=== PATIENT | female | born 1975 | race Caucasian/White ===

== ENCOUNTER 2019-08-26 13:19 | Outpatient (CLI) | payer MEDICARE, MEDICAID, SELFPAY ==
--- NOTE | 2019-08-26 | ECHO_ITS ---
Patient Info Name: Sabi Tafoya Age: 44 years : 1975 Gender: Female Ht: 67 in Wt: 142 lbs BSA: 1.75 m2 HR: 73 bpm BP: 110 / 73 mmHg Heart Rhythm: Sinus Rhythm Technical Quality: Good Exam Date: 08/26/2019 1:45 PM Exam Location: [facility] Patient Status: Outpatient Admit Date: 08/26/2019 Staff Ordering Physician: Gaurang, Sudhakar VILLAGRAN Patient Manager: Ady Barnett, AVILA, RT Attending Provider: Gaurang, Sudhakar VILLAGRAN Exam Type: CA echo doppler color flow Study Info Indications R60.0 - Localized edema Complete two-dimensional, color flow and Doppler transthoracic echocardiogram is performed. Summary 1. Left ventricular chamber size, wall thickness, systolic and diastolic function are normal with no regional wall motion abnormalities with an estimated ejection fraction of 65-70%. The average global longitudinal strain is minimally decreased at -17%, suggesting possible early systolic dysfunction. 2. No significant valve disease. 3. Normal sinus rhythm. Left Ventricle Left ventricular chamber dimension is normal. Left ventricular systolic function is normal, estimated at 65-70%. There is no increased left ventricular wall thickness. Left ventricular septal wall motion is normal. The left ventricular diastolic function is normal. Global longitudinal strain is mildly elevated at 17 %. Left ventricular chamber size, wall thickness, systolic and diastolic function are normal with no regional wall motion abnormalities with an estimated ejection fraction of 65-70%. The average global longitudinal strain is minimally decreased at -17%, suggesting possible early systolic dysfunction. Right Ventricle Right ventricular chamber dimension is normal. Right ventricular systolic function is normal. Left Atria Left atrial chamber dimension is normal. Right Atria Right atrial chamber dimension is normal. Aortic Valve The aortic valve is trileaflet. There is no aortic valve sclerosis. There is no aortic valve stenosis. There is no aortic valve regurgitation. Pulmonic Valve The pulmonic valve is normal. There is no pulmonic valve stenosis. There is no pulmonic regurgitation. Mitral Valve The mitral valve has normal leaflets. There is no mitral valve stenosis. There is trace mitral valve regurgitation. Tricuspid Valve The tricuspid valve leaflets are normal. There is no significant tricuspid valve stenosis. There is trace tricuspid valve regurgitation. No pulmonary hypertension, estimated pulmonary arterial systolic pressure is Empty. Pericardium/Pleural The pericardium appears normal. There is no pericardial effusion. Inferior Vena Cava Normal inferior vena cava with >50% collapse upon inspiration consistent with Empty right atrial pressure, Empty. Aorta The aortic root size at the sinus of Valsalva is normal. The prox ascending aorta size is normal. Left Ventricular Outflow Tract Name Value Normal LVOT 2D LVOT Diameter 1.9 cm LVOT Doppler LVOT Peak Gradient 4 mmHg LVOT Mean Gradient 2 mmHg LVOT VTI
== END 2019-08-26 13:20 | disposition home or self-care (01) ==
PROVIDERS: PCP Family Medicine; Visit Provider Family Medicine
DX: R60.9 Edema, unspecified (principal)
CPT/HCPCS: 93306

== ENCOUNTER 2019-12-27 10:04 | Outpatient (CLI) | payer MEDICARE, MEDICAID, SELFPAY ==
--- NOTE | ~2019-12-27 | XR_ITS ---
EXAMINATION: XR ankle RT min 3V DATE: 12/27/2019 16:21 INDICATION: Right ankle soft tissue swelling. TECHNIQUE: 4 views of right ankle were obtained. COMPARISON: Right ankle radiographs 06/06/2018 FINDINGS: Bone alignment is normal. No fracture. There is chronic sclerosis in the distal tibia and c alcaneus, consistent with osteonecrosis. There is moderate osteoarthritis of the ankle joint. There i s an enthesophyte at plantar aspect of calcaneal tuberosity. Ankle soft tissue swelling is noted. IMPRESSION: 1. Osteonecrosis involving the distal tibia and calcaneus, stable from 06/06/2018. 2. Moderate ankle joint osteoarthritis. Reviewed, dictated and finalized at location A. IMPRESSION: 1. 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 2. Moderate ankle joint osteoarthritis.
--- NOTE | ~2019-12-27 | NM_ITS ---
EXAMINATION: NM bone 3 phase DATE: 12/27/2019 15:14 INDICATION: Right ankle ulcer. TECHNIQUE: 22.7 mCi Tc-99m HDP was administered intravenously. Scintigrams of the ankles and feet wer e obtained in angiographic, blood pool, and delayed phases. COMPARISON: Right ankle radiographs 12/27/2019, left ankle radiographs 06/06/2018 FINDINGS: There is increased activity in right tibiotalar joint on delayed phase images correlating w ith osteoarthritis and distal tibial osteonecrosis on radiographs. There is increased activity at rig ht first metatarsal-phalangeal joint correlating with osteoarthritis on radiographs. There is increased activity at left tibiotalar joint and in distal left tibia on all 3 phases correla ting with advanced osteoarthritis and distal tibial osteonecrosis on prior radiographs. IMPRESSION: 1. No evidence of osteomyelitis in the right ankle. Reviewed, dictated and finalized at location A.
== END 2019-12-27 10:05 | disposition home or self-care (01) ==
LOC: ANHIMG 10:19
PROVIDERS: PCP Family Medicine; Visit Provider Family Medicine
DX: S91.001A Unspecified open wound, right ankle, initial encounter (principal); X58.XXXA Exposure to other specified factors, initial encounter; M19.071 Primary osteoarthritis, right ankle and foot
CPT/HCPCS: 73610; 78315; A9561

== ENCOUNTER 2020-01-20 21:17 | Inpatient (IN) | payer MEDICARE, MEDICAID, SELFPAY ==
--- NOTE | ~2020-01-20 | XR_ITS ---
EXAMINATION: XR abdomen NG/feed tube insert INDICATION: Nasogastric tube insertion TECHNIQUE: Portable AP KUB-NG at 0107 hours COMPARISON: None available FINDINGS: The nasogastric tube is in the stomach. Contrast from earlier CT examination partially opac ifies the urinary tract. The visualized lung bases are clear. IMPRESSION: 1. Nasogastric tube in the stomach. Reviewed, dictated and finalized at location A.
--- NOTE | ~2020-01-20 | CT_ITS ---
EXAMINATION: CT cervical spine wo con DATE: 01/21/2020 00:22 INDICATION: Confusion and altered mental status TECHNIQUE: Computed tomography (CT) of the cervical spine was performed without intravenous contrast. The dose-length product (DLP) was 376.70 mGy-cm. Automated exposure control and iterative reconstruc tion technique were employed. COMPARISON: None FINDINGS: The C3 and C4 vertebral bodies are fused. There is anterior surgical fusion from C5 through C7 and posterior fusion from C2 through the upper thoracic spine. There is chronic appearing retropu lsion of a fracture fragment into the central spinal canal at C7. No definite acute fracture is ident ified. The prevertebral soft tissues are normal. The odontoid is intact. IMPRESSION: 1. Surgical changes without evidence of acute osseous abnormality. Reviewed, dictated and finalized at location A.
--- NOTE | ~2020-01-20 | XR_ITS ---
XR chest 1V portable DATE: 01/24/2020 06:29 INDICATION: Acute respiratory failure TECHNIQUE: Portable AP chest on 01/24/2020 at 0550 hours COMPARISON: 01/23/2020 portable AP chest at 0529 hours FINDINGS: Right internal jugular central venous catheter tip overlying superior vena cava. NG tube in stomach. ET tube tip approximately 2.3 cm above venu in satisfactory position. Heart size likely within normal range. There is pulmonary vascular congestion and redistribution. The re is increased retrocardiac density on the left with air bronchograms consistent with left lower lob e atelectasis and/or consolidation. Mild blunting of the cosmetic angles may indicate small pleural e ffusions. There is prominence of minor fissure suggesting subpleural edema. Postoperative changes from cervical and upper thoracic spine fusion. IMPRESSION: ET and NG tubes in satisfactory position Right internal jugular central venous catheter in superior vena cava; no pneumothorax Left lower lobe atelectasis and/or consolidation, relatively stable since 01/23/2020 Congestive changes, relatively stable since 01/23/2020 Reviewed, dictated and finalized at location A. IMPRESSION: ET and NG tubes in satisfactory position Right internal jugular central venous catheter in superior vena cava; no pneumo thorax Left lower lobe atelectasis and/or consolidation, relatively stable since 020 Congestive changes, relatively stable since 01/23/2020
--- NOTE | ~2020-01-20 | XR_ITS ---
EXAMINATION: XR chest 1V portable INDICATION: Acute respiratory failure TECHNIQUE: Portable AP chest at 0543 hours COMPARISON: 01/21/2020 FINDINGS: The endotracheal tube at the origin of the right main stem bronchus. The nasogastric tube i s in the stomach. A right internal jugular central venous catheter ends with its tip in the distal gómez perior vena cava. Airspace opacities have developed in the left lung base. There is a small left pleu ral effusion. No pneumothorax is identified. The cardiomediastinal silhouette is stable. There are pa rtially imaged changes of cervical and thoracic spinal fusion. IMPRESSION: 1. Small left pleural effusion with associated left basilar airspace opacity, atelectasis versus pneu monia. 2. Endotracheal tube at the origin of the right mainstem bronchus. Recommend repositioning. This find ing and recommendation were discussed with INES Arevalo at 0701 hours on 01/22/2020. Reviewed, dictated and finalized at location A. IMPRESSION: 1. Small left pleural effusion with associated left basilar airspace opacity, a telectasis versus pneumonia. 2. Endotracheal tube at the origin of the right mainstem bronchus. Recommend re positioning. This finding and recommendation were discussed with INES Arevalo at 0 701 hours on 01/22/2020.
--- NOTE | ~2020-01-20 | XR_ITS ---
EXAMINATION: XR chest ET placement INDICATION: Shortness of breath, intubation TECHNIQUE: Portable AP chest at 0317 hours COMPARISON: 06/04/2019 FINDINGS: The endotracheal tube ends approximately 1.7 cm above the venu. The nasogastric tube is i n the stomach. The lungs are free of acute opacities. There is no pleural effusion or pneumothorax. T he cardiomediastinal silhouette is normal. Changes of cervical and thoracic spinal fusion are noted. IMPRESSION: 1. Endotracheal and nasogastric tubes in adequate position. Reviewed, dictated and finalized at location A.
--- NOTE | ~2020-01-20 | XR_ITS ---
EXAMINATION: XR abdomen NG/feed tube insert INDICATION: Nasogastric tube insertion TECHNIQUE: Portable AP KUB-NG at 1046 hours COMPARISON: 0107 hours FINDINGS: The nasogastric tube is in the stomach. The bowel gas pattern is nonspecific. The endotrach eal tube ends approximately 1 cm above the venu. IMPRESSION: 1. Nasogastric tube in the stomach. Reviewed, dictated and finalized at location A.
--- NOTE | ~2020-01-20 | XR_ITS ---
EXAMINATION: XR chest port-a-cath/central INDICATION: Central line placement TECHNIQUE: Portable AP chest at 0614 hours COMPARISON: 0317 hours FINDINGS: A right internal jugular catheter has been inserted which ends with its tip in the superior vena cava. There is no pneumothorax. The lungs are free of acute opacities. There is no pleural effu victor manuel. The endotracheal tube ends approximately 1.7 cm above the venu. The nasogastric tube is in th e stomach. There are partially imaged changes of cervical and thoracic spinal fusion. IMPRESSION: 1. Central line insertion without pneumothorax. 2. No acute cardiopulmonary abnormality. Reviewed, dictated and finalized at location A.
--- NOTE | ~2020-01-20 | CT_ITS ---
EXAMINATION: CT abdomen pelvis w con DATE: 01/21/2020 00:22 INDICATION: Hepatic encephalopathy TECHNIQUE: Computed tomography (CT) of the abdomen and pelvis was performed with 100 mL Omnipaque-350 intravenous contrast. Automated exposure control and iterative reconstruction technique were employe d. The dose-length product was 1162.13 mGy-cm. COMPARISON: None FINDINGS: Dependent atelectasis in the bilateral lower lobes. Heart size is normal. No pericardial or pleural e ffusion. Nodular cirrhotic liver. Portal venous hypertension with recanalized umbilical vein draining to the right hypogastric vein as well as paraesophageal varices. The gallbladder is distended to 4.3 cm. There is mild gallbladder wall thickening with subtle haziness to the immediately adjacent peric holecystic fat. Spleen, pancreas, bilateral adrenal glands are normal. Mild left renal atrophy with s mall region of focal cortical scarring at the lower pole. There are few scattered colonic diverticula without adjacent inflammatory change to suggest diverticulitis. No bowel obstruction. Bladder, uteru s and bilateral adnexa are unremarkable. Moderate-sized fat-containing paraumbilical hernia. No free intraperitoneal gas or fluid. No pathologically enlarged abdominal or pelvic lymphadenopathy. Mild l umbar levoscoliosis with severe right-sided disc height loss and associated Modic type III degenerati ve endplate changes at the L4-L5. Moderate disc height loss with less severe degenerative endplate ch anges at T11-T12. 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 IMPRESSION: 1. Cirrhosis with portal venous hypertension including esophageal varices. 2. Mild wall thickening of the mildly distended gallbladder with slight haziness to the pericholecyst ic fat. This could be related to cirrhosis however differential would also include acute cholecystiti s in the proper peduncle setting. Correlate for Barnett sign and could consider further evaluation wit h ultrasound or HIDA scan as clinically indicated. 3. Moderate-sized fat-containing umbilical hernia. 4. 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 Reviewed, dictated and finalized at location A. IMPRESSION: 1. Cirrhosis with portal venous hypertension including esophageal varices. 2. Mild wall thickening of the mildly distended gallbladder with slight hazines s to the pericholecystic fat. This could be related to cirrhosis however differ ential would also include acute cholecystitis in the proper peduncle setting. C orrelate for Barnett sign and could consider further evaluation with ultrasound or HIDA scan as clinically indicated. 3. Moderate-sized fat-containing umbilical hernia. 4. 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
--- NOTE | ~2020-01-20 | CT_ITS ---
EXAMINATION: CT brain wo con INDICATION: Confusion COMPARISON: None TECHNIQUE: Standard unenhanced head CT. The dose-length product (DLP) was 681.00 mGy-cm. The mA was a djusted according to patient size. Iterative reconstruction technique was employed. FINDINGS: Examination is limited by motion artifact. There is no intracranial hemorrhage, acute infar ction, or abnormal mass lesion. The ventricles are normal. There is no abnormal mass effect or midlin e shift. The colvin-white matter differentiation is normal. The basal cisterns are patent. The orbits a re normal. There is mild mucosal thickening of the paranasal sinuses. IMPRESSION: 1. Grossly no acute intracranial abnormality, sensitivity limited by motion artifact. Reviewed, dictated and finalized at location A. IMPRESSION: 1. Grossly no acute intracranial abnormality, sensitivity limited by motion art ifact.
--- NOTE | ~2020-01-20 | XR_ITS ---
EXAMINATION: XR chest 1V portable INDICATION: Acute respiratory failure TECHNIQUE: Portable AP chest at 0529 hours COMPARISON: 01/22/2020 FINDINGS: The endotracheal tube ends approximately 1.9 cm above the venu. The nasogastric tube is f ollowed as far as the stomach. Its tip is beyond the inferior margin of the radiograph. A right inter nal jugular central venous catheter ends with its tip in the midsuperior vena cava. LEFT basilar airs pace opacity persists without significant change. There is a small left pleural effusion. No pneumoth orax is identified. Partially imaged changes of cervical and thoracic spinal fusion are again noted. The cardiomediastinal silhouette is stable. IMPRESSION: 1. Stable left basilar airspace opacity, consistent with atelectasis versus pneumonia. 2. Small left pleural effusion. Reviewed, dictated and finalized at location A. IMPRESSION: 1. Stable left basilar airspace opacity, consistent with atelectasis versus pne umonia. 2. Small left pleural effusion.
--- NOTE | 2020-01-20 21:18 | ED.AMS ---
HPI - Altered Mental Status General Chief Complaint: Nausea/Vomiting/Diarrhea Stated Complaint: pain all over/ vomiting blood History of Present Illness HPI narrative: Patient presents via EMS for altered mental status. Her called 911. All she will say is leonard, Rolan francis she has not a surgical collar and swings out of anyone who tries to approach her. The EMS staff says that her reports that she has been vomiting blood and having diarrhea with blood. MD complaint: altered mental status and confusion Onset (ago): hour(s) Timing confirmed by: family member Related Data Home Medications Medication Instructions Recorded Confirmed allopurinol 300 mg PO DAILY 01/20/20 atorvastatin 20 mg PO DAILY 01/20/20 furosemide [Lasix] 40 mg PO DAILY 01/20/20 gabapentin 600 mg PO QID 01/20/20 meloxicam 7.5 mg PO BID 01/20/20 omeprazole 40 mg PO DAILY 01/20/20 potassium chloride 20 mg PO BID 01/20/20 spironolactone 100 mg PO DAILY 01/20/20 Allergies Allergy/AdvReac Type Severity Reaction Status Date / Time No Known Allergies Allergy Unverified 05/17/17 00:20 Review of Systems Review of Systems: Narrative: Unable to obtain an accurate review of systems due to the patient's altered mental status. [facility] Family History Family History (Updated 04/30/12 @ 07:52 by DOCTOR UNKNOWN) Other Diabetes mellitus Social History Social History Alcohol intake: current Exam Narrative: Exam Narrative: GENERAL: Disheveled, jaundice, woman in moderate distress. HEAD: Normocephalic, atraumatic. EYES: PERRLA and EOMI. ENT: Nares clear, no rhinorrhea or epistaxis. Mucous membranes moist. NECK: Supple. CHEST: Clear to auscultation. No respiratory distress. HEART: Regular rate and rhythm. No murmur heard. Normal peripheral pulses. ABDOMEN: Soft, nontender, nondistended, normal active bowel sounds. Umbilical hernia. EXTREMITIES: Normal range of motion. No edema. SKIN: Warm, dry, no rash. NEURO: No focal deficits. . PSYCH: Yelling and unable to be redirected, will not follow commands.. Course Reevaluation(s) Reevaluation #1: The is here now who says his has not had any alcohol to drink today. Usually she drinks beer daily. He said that she was fine until he went out to get a pizza, when he returned, she was confused, and would not eat. Her says that the orange discoloration of her skin might be the tanning product she uses. Date: 01/20/20 Time: 21:52 Reevaluation #2: [id number] with the patient after her NG was placed. The CAT scan of her neck shows nothing acute and I removed the cervical collar. She appears to be asleep. There was no blood in the NG tube. She has soft restraints. Restraints were placed by nursing staff to keep her from pulling out the NG tube, since she cannot make reasonable decisions with her hepatic encephalopathy. I here the daughter is present, but could not find her when I went to speak to her. Date: 01/21/20 Time: 01:10 Consultations Consultation #1: Call Dr. Schmidt and he said he will keep the patient if GI will. He requested a CAT scan of the abdomen. Date: 01/20/20 Time: 23:44 Consultation #2: Call Dr. Rodríguez, and he requests an NG tube to suction, proton, plasma transfusion, and serial H&H. He will consult. Date: 01/20/20 Time: 23:44 Consultation #3: Call Dr. Adams the ICU attending to get permission to put the patient into the ICU. Discussed the case and he agrees. Date: 01/21/20 Time: 01:11 Vital Signs Vital signs: Vital Signs Temperature 98.7 F 01/20/20 21:20 Pulse Rate 89 01/20/20 21:20 Respiratory Rate 18 01/20/20 21:20 Blood Pressure 122/45 L 01/20/20 21:20 Pulse Oximetry 98 01/20/20 21:20 Temperature 98.7 F 01/20/20 21:20 Pulse Rate 112 H 01/21/20 01:00 Respiratory Rate 19 01/21/20 01:00 Blood Pressure 141/83 H 01/21/20 01:00 Pulse Oximetry 97 01/20/20 23:45 MDM - Altered Mental Status Medical Wojciech
[2020-01-20 21:20] VITALS: BP 122/45; PULSE 89; RESP 18; TEMP 37.1; O2SAT 98
[2020-01-20] MEDS: HALOPERIDOL LACTATE 5 MG/ML VIAL (21:33)
[2020-01-20 21:49] LABS: Basophils Absolute Auto 0.1 K/mm3 (0.0-0.1); Basophils Percent Auto 0.8 % (0.2-1.2); Eosinophils Absolute Auto 0.2 K/mm3 (0-0.3); Eosinophils Percent Auto 1.2 % (0-4.4); Hematocrit 29.7 % (37.0-47.0); Hemoglobin 10.1 g/dL (12.0-15.0); Immature Granulocyte Absolute 0.05 K/mm3 (0.00-0.031); Immature Granulocyte Percent A 0.4 % (0-0.5); Lymphocytes Absolute Auto 4.26 K/mm3 (0.9-3.2); Lymphocytes Percent Auto 30.9 % (18.3-44.2); Mean Corpuscular Hemoglobin 31.2 pg (26-34); Mean Corpuscular Volume 91.7 fl (80-100); Monocytes Absolute Auto 0.8 K/mm3 (0.1-0.6); Monocytes Percent Auto 5.9 % (2.6-8.5); Neutrophils Absolute Auto 8.4 K/mm3 (1.3-6.7); Neutrophils Percent Auto 60.8 % (45.5-73.1); Platelet Count Result 232 k/mm3 (150-375); Red Blood Count 3.24 M/mm3 (4.2-5.4); White Blood Count 13.8 K/mm3 (4.5-10.0)
[2020-01-20 21:59] LABS: INR 1.2
[2020-01-20 22:03] LABS: Alanine Aminotransferase 25 U/L (4-35); Alkaline Phosphatase 192 U/L (38-126); Anion Gap 8.9 mmol/L (7-16); Aspartate Amino Transferase 48 U/L (14-36); Bilirubin,Total 0.8 mg/dL (0.2-1.3); Blood Urea Nitrogen 25 mg/dL (7-17); Calcium 8.5 mg/dL (8.4-10.2); Carbon Dioxide 19 mmol/L (22-30); Chloride 117 mmol/L (98-107); Estimated CRCL calculation 69 ml/min; Estimated Glomerular Filt Rate > 60; Glucose 114 mg/dL (65-105); Lipase 130 U/L (23-300); Potassium 3.9 mmol/L (3.4-5.0); Sodium 141 mmol/L (137-145)
[2020-01-20 22:22] LABS: Ammonia 178 umol/L (9-30)
[2020-01-20 23:45] VITALS: BP 102/65; PULSE 95; RESP 16; O2SAT 97
[2020-01-21] VITALS (50 sets, daily range): BP systolic 94–155; BP diastolic 61–100; PULSE 77–126; RESP 14–30; TEMP 36.3–36.9; O2SAT 95–100; BMI 25.7
[2020-01-21] MEDS: SODIUM POLYSTYRENE SULFONONATE 15 GM/60 ML BTL RECTAL (00:30)
--- NOTE | 2020-01-21 00:50 | PC.NURSE ---
Addendum entered by Tima Rabago RN 01/21/20 00:56: Patient already has one visitor at this time. Original Note: Patient's daughter in triage requesting to see patient. Daughter notified of current ED visiting policy stating we are allowing only one visitor, who must be the same visitor, during the duration of the visit. Daughter visibly upset stating if she dies I am suing this hospital. ED charge nurse Caitlin notified of situation.
[2020-01-21] MEDS: SODIUM CHLORIDE 0.9% IV 250 ML 30 ML IV CONT ×2 (01:00→12:12)
[2020-01-21] MEDS: TUBING, BLOOD SET 1 EACH XX (01:49)
[2020-01-21 02:48] LABS: Alveolar/Arterial O2 Gradient 135.3 mmHg; Base Excess ABG -6.6 mEq/l (+/-2.0); Carboxyhemoglobin 0.3 % THb (0-2.0); Fractional Inspired Oxygen 32 %; HCO3 ABG 15.4 mEq/l (22.0-26.0); Methemoglobin ABG 0.1 %THb (0-1.5); Oxygen Content ABG 13.8 %vol (16.0-22.0); Oxygen Saturation ABG 95.1 % (95.0-100.0); Oxyhemoglobin 92.2 % THb (90.0-100.0); PO2 ABG 67.8 mmHg (80.0-100.0); PO2 FiO2 Ratio Arterial Blood 2.12 %; Reduced Hemoglobin 7.4 %THb (0-5.0); Total Hemoglobin 10.6 g/dL (12.0-18.0); pH ABG 7.474 (7.350-7.450)
[2020-01-21 02:51] LABS: Device NASAL CANNULA; Modified Allen's Test Pass; PCO2 ABG 21.4 mmHg (35.0-45.0); Site Drawn LEFT RADIAL
[2020-01-21 02:57] LABS: Hematocrit 25.5 % (37.0-47.0); Hemoglobin 8.8 g/dL (12.0-15.0)
--- NOTE | 2020-01-21 03:22 | WPDPROCEDUR ---
Procedures Intubation Intubation Date: 01/21/20 Intubation Time: 03:22 A pre-procedural Time-Out was completed immediately before starting the procedure and confirmed: Patient Identification, Site, Procedure, Patient Position and the Availability of Requisite Equipment: Yes Sedative: etomidate Mg given: 10 Paralytic: rocuronium Mg given: 45 Laryngoscope: fiber optic video scope ET tube size: 7.5 Tube secured depth (cm): 25 Tube secured location: teeth Tube placement confirmation: visualized tube passing through cords, equal breath sounds bilaterally, no breath sounds over epigastrium and confirmation by capnometry Patient tolerated procedure: well Intubation complications: none Additional comments: Date of service was 01/21/2020 at 03:15 hrs.
--- NOTE | 2020-01-21 03:23 | PM.IMHP ---
H&P: HPI History of Present Illness Date/Time: 01/21/20 03:23 Chief complaint: hepatic encephalopathy, GI bleed Narrative: This is a 44 year old female with known chronic alcohol abuse who presented to the hospital earlier this evening with altered mental status. Her reports that she has been vomiting blood and having diarrhea with blood. The patient was evaluated in the ER and found to have an elevated ammonia level of 178 as well as elevated liver enzymes. CT brain was obtained which was negative for any acute intracranial process. ER provider consulted GI, Dr. Bianchi. While in the ER the patient was treated with Haldol and Kayexalate. Laborer [place], Dr. Bailey was consulted. The patient arrived to the ICU unresponsive and in ama respiratory failure with a RR of 30 bpm . The patient would not open her eyes or respond to painful stimuli. I emergently intubated the patient for airway protection and because she was in respiratory failure. No further history is obtainable. Review of Systems Review of Systems: ROS unobtainable: Yes unobtainable due to medical condition PMF Family History Family History Other Diabetes mellitus Social History Social History Smoking status: Former smoker Alcohol intake: current Drinks per week: 70 Substance use: unknown Gender identity (if verbalized by the patient): Female Spiritual care concerns: No Comments Past medical histories are not obtainable as the patient is intubated on mechanical ventilation and sedated. Meds Home Medications and Allergies Home Medications Medication Instructions Recorded Confirmed Type allopurinol 300 mg PO DAILY 01/20/20 01/21/20 History gabapentin 600 mg PO QID 01/20/20 01/21/20 History meloxicam 7.5 mg PO BID PRN 01/20/20 01/21/20 History omeprazole 40 mg PO DAILY 01/20/20 01/21/20 History spironolactone 100 mg PO DAILY 01/20/20 01/21/20 History albuterol sulfate 2 puff INHALATION Q4H PRN 01/21/20 01/21/20 History atorvastatin 40 mg PO DAILY 01/21/20 01/21/20 History baclofen 20 mg PO Q8H 01/21/20 01/21/20 History duloxetine 60 mg PO DAILY 01/21/20 01/21/20 History levothyroxine 175 mcg PO QAM 01/21/20 01/21/20 History sertraline 50 mg PO DAILY 01/21/20 01/21/20 History Allergies Allergy/AdvReac Type Severity Reaction Status Date / Time aspirin AdvReac Unknown Verified 01/21/20 06:44 Vital Signs Vital Signs - 24 hr 01/20/20 21:20 01/20/20 23:45 01/21/20 00:45 Temperature 37.1 C Pulse Rate 89 95 116 H Respiratory Rate 18 16 30 H Blood Pressure 122/45 L 102/65 130/82 Pulse Oximetry 98 97 01/21/20 01:00 01/21/20 01:15 01/21/20 01:30 Temperature Pulse Rate 112 H 123 H 125 H Respiratory Rate 19 25 H 25 H Blood Pressure 141/83 H 143/86 H 148/84 H Pulse Oximetry 96 01/21/20 01:45 01/21/20 01:46 01/21/20 02:00 Temperature 36.6 C Pulse Rate 126 H 125 H 122 H Respiratory Rate 24 H 25 H 26 H Blood Pressure 150/92 H 150/92 H 137/91 H Pulse Oximetry 95 96 01/21/20 02:01 01/21/20 03:17 01/21/20 03:20 Temperature 36.6 C Pulse Rate 125 H 112 H 118 H Respiratory Rate 19 17 Blood Pressure 137/92 H Pulse Oximetry 97 97 01/21/20 03:21 Temperature Pulse Rate 118 H Respiratory Rate 17 Blood Pressure Pulse Oximetry Exam Const: General: ill appearing and other (Comatose++ ) Nutritional Appearance: overweight Orientation/consciousness: Other orientation findings (Comatose+) HENMT: Head: normal to inspection General nose exam: Normal external nose present Face and sinus: normal facial exam Mouth: Yes fetor hepaticus and Yes other (Dark black emesis is noted in oral cavity++ ) Eyes: Pupils: Equal, round and reactive pupils present Neck: Neck: other (tracheostomy scar. Posterior - large scar from previous abscess/phlegmon) Thyroid: thyroid normal Lymphatic: lymp
[2020-01-21] MEDS: DEXTROSE 5%/0.9% SOD CHL 1,000 ML 100 ML IV CONT (04:30)
[2020-01-21] MEDS: LACTULOSE 20 GM/30 ML UDC 30 GM PO ×5 (04:33→23:15)
[2020-01-21 04:55] LABS: Basophils Absolute Auto 0.1 K/mm3 (0.0-0.1); Basophils Percent Auto 0.5 % (0.2-1.2); Hematocrit 27.8 % (37.0-47.0); Hemoglobin 9.2 g/dL (12.0-15.0); Immature Granulocyte Absolute 0.05 K/mm3 (0.00-0.031); Immature Granulocyte Percent A 0.4 % (0-0.5); Lymphocytes Absolute Auto 1.53 K/mm3 (0.9-3.2); Lymphocytes Percent Auto 13.1 % (18.3-44.2); Mean Corpuscular HGB Conc 33.1 g/dl (32-36); Mean Corpuscular Hemoglobin 30.7 pg (26-34); Mean Corpuscular Volume 92.7 fl (80-100); Mean Platelet Volume 11.7 fl (7.4-10.4); Monocytes Absolute Auto 0.8 K/mm3 (0.1-0.6); Monocytes Percent Auto 7.1 % (2.6-8.5); Neutrophils Absolute Auto 9.2 K/mm3 (1.3-6.7); Neutrophils Percent Auto 78.9 % (45.5-73.1); Platelet Count Result 193 k/mm3 (150-375); Red Cell Distribution Width 14.1 % (11.5-14.5); White Blood Count 11.7 K/mm3 (4.5-10.0)
[2020-01-21 04:58] LABS: Alveolar/Arterial O2 Gradient 217.4 mmHg; Base Excess ABG -7.6 mEq/l (+/-2.0); Carboxyhemoglobin 0.2 % THb (0-2.0); Fractional Inspired Oxygen 60 %; HCO3 ABG 15.6 mEq/l (22.0-26.0); Methemoglobin ABG 0.1 %THb (0-1.5); Oxygen Saturation ABG 99.3 % (95.0-100.0); Oxyhemoglobin 97.8 % THb (90.0-100.0); PO2 ABG 182.9 mmHg (80.0-100.0); PO2 FiO2 Ratio Arterial Blood 3.05 %; Reduced Hemoglobin 1.9 %THb (0-5.0); Total Hemoglobin 10.6 g/dL (12.0-18.0); pH ABG 7.412 (7.350-7.450)
[2020-01-21 04:59] LABS: Device VENTILATOR; Modified Allen's Test Pass; Site Drawn LEFT RADIAL
[2020-01-21 05:00] LABS: Arterial Blood Gas PEEP 5 cmH2O; Arterial Blood Gas Tidal Volume 400 ml; Arterial Blood Gas Vent Mode CMV; Arterial Blood Gas Ventilator rate 15 /MIN
[2020-01-21 05:17] LABS: Anion Gap 9.3 mmol/L (7-16); Blood Urea Nitrogen 23 mg/dL (7-17); Calcium 8.5 mg/dL (8.4-10.2); Carbon Dioxide 19 mmol/L (22-30); Chloride 117 mmol/L (98-107); Estimated CRCL calculation 78 ml/min; Estimated Glomerular Filt Rate > 60; Glucose 119 mg/dL (65-105); Potassium 3.3 mmol/L (3.4-5.0); Sodium 142 mmol/L (137-145)
--- NOTE | 2020-01-21 05:59 | WPDPROCEDUR ---
Procedures Central Line Placement Right IJ: Central Line Date: 01/21/20 Central Line Time: 05:59 Discussed w/ the patient/family/POA,the placement of a central venous catheter, including its clinical necessity/indication & associated potential risks, benifits and alternatives.: Yes Time Out Performed: Yes Patient Position: supine Patient placed on monitor/pulse ox: Yes Provider Prep: mask, sterile gown, sterile gloves, Max. sterile barrier precautions, cap, hand hygiene with conventional soap/water or alcohol based hand rub and emergent ? sterile barriers not used Sterile US Technique with sterile gel/sterile probe covers: Yes Central line lumen inserted: triple [place]: 7 Length (cm): 17 Depth of Insertion (cm): 15 Post procedure: sutured in place, good blood return, all ports aspirated, flushed, capped, tegaderm, hemostatic disc, antimicrobial disc and aseptic technique maintained throughout procedure Post procedure x-ray: no pneumothorax seen Patient tolerated procedure: well Complications: none Additional comments: Date of service was 01/21/2020 at 05:45 hrs.
[2020-01-21 07:51] LABS: Reflex Lactic Acid Yes or No Add Lactic
[2020-01-21 08:11] LABS: Hematocrit 23.2 % (37.0-47.0)
[2020-01-21] MEDS: CENTRAL LINE FLUSH 10 ML IV PUSH ×4 (08:14→20:18)
--- NOTE | 2020-01-21 08:15 | ADMGEN ---
This patient, Sabi Tafoya, was admitted to Intensive Care Unit-11 01/21/2020 at 0219. Patient/family oriented to hospital policies and general routines including ID bracelet, bed and alarms, visiting hours, pain management, procedures, bathroom and other care routines, personal items, smoking policy, room service/diet, and visiting hours. Valuables list has been completed. Information on how to activate the Rapid Response Team has been discussed. Patient/Family are encouraged to report perceived risks to care and to ask questions if they do not understand what they are told or what they should do.
[2020-01-21 08:22] LABS: Lactic Acid 1.3 mmol/L (0.7-2.1)
[2020-01-21 08:24] LABS: Ammonia 150 umol/L (9-30)
[2020-01-21] MEDS: THIAMINE HCL 200 MG/2 ML VIAL 100 MG IV PUSH (08:25)
--- NOTE | 2020-01-21 08:54 | WPDGICN ---
Assessment and Plan Assessment and plan (1) GI bleed: Qualifiers: GI bleed type/associated pathology: unspecified gastrointestinal hemorrhage type Qualified Code(s): K92.2 - Gastrointestinal hemorrhage, unspecified Code(s): K92.2 - Gastrointestinal hemorrhage, unspecified Status: Acute Assessment and Plan: GI bleeding noted manifested by coffee-ground emesis and maroon stool per rectum. Suspect this is upper GI blood loss. Given her history of alcohol abuse varices and cirrhosis or possible. Plan is for patient be on proton pump pump inhibitor. Continued consider octreotide drip. An EGD will be performed today. Patient will be transfused to a stable hemoglobin. 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 Xifaxan may be of additional benefit if able to tolerate oral medications. (3) Acute respiratory failure: Qualifiers: Respiratory failure complication: unspecified whether with hypoxia or hypercapnia Qualified Code(s): J96.00 - Acute respiratory failure, unspecified whether with hypoxia or hypercapnia Code(s): J96.00 - Acute respiratory failure, unspecified whether with hypoxia or hypercapnia Status: Acute Assessment and Plan: Patient was felt to have respiratory distress last evening. Intubated to protect airway. Management per personnel security assistant service. GI Consult Note Consult date/time: 01/21/20 08:54 HPI: Sabi Tafoya is a 44 year old female Seen in evaluation at the request of the emergency room. Patient currently intubated unable to add any additional history history obtained from talking to the emergency room and old records. Patient has a long history of heavy alcohol abuse. Became somewhat confused and combative last evening. She vomited coffee-ground material. In past maroonish stool per rectum. She presented to the emergency room last evening. She subsequently was felt to be in respiratory distress and intubated. I have been consulted because of GI bleeding. No prior history of GI bleeding is reported. Past medical history is significant for AE cervical paraspinal abscess. For which she previously had a tracheostomy. Patient has had some decline in hemoglobin overnight is currently being transfused. Review of Systems Review of Systems: All systems reviewed & are unremarkable except as noted in HPI and below PMFSH Family History Family History Other Diabetes mellitus Social History Social History Smoking status: Former smoker Alcohol intake: current Drinks per week: 70 Substance use: unknown Gender identity (if verbalized by the patient): Female Spiritual care concerns: Yes (Sabianist) Meds Home Medications and Allergies Home Medications Medication Instructions Recorded Confirmed Type allopurinol 300 mg PO DAILY 01/20/20 01/21/20 History furosemide [Lasix] 40 mg PO DAILY 01/20/20 History gabapentin 600 mg PO QID 01/20/20 01/21/20 History meloxicam 7.5 mg PO BID PRN 01/20/20 01/21/20 History omeprazole 40 mg PO DAILY 01/20/20 01/21/20 History spironolactone 100 mg PO DAILY 01/20/20 01/21/20 History albuterol sulfate 2 puff INHALATION Q4H PRN 01/21/20 01/21/20 History atorvastatin 40 mg PO DAILY 01/21/20 01/21/20 History baclofen 20 mg PO Q8H 01/21/20 01/21/20 History duloxetine 60 mg PO DAILY 01/21/20 01/21/20 History levothyroxine 175 mcg PO QAM 01/21/20 01/21/20 History sertraline 50 mg PO DAILY 01/21/20 01/21/20 History Allergies Allergy/AdvReac Type Severity Reaction Status Date / Time aspirin AdvReac Unknown Verified 01/21/20 06:44 Vital Signs Vital
--- NOTE | 2020-01-21 09:24 | WPDCNINT ---
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 most likely secondary hepatic encephalopathy - Patient remains on CMV mode of ventilation, peep of 5, FiO2 of 50% - chest x-ray and ABGs reviewed, will wean FiO2 as tolerated - sedated with fentanyl and Versed infusion, maintain RASS of 0 to -2, daily sedation vacation (2) Hepatic encephalopathy: Code(s): K72.90 - Hepatic failure, unspecified without coma Status: Acute Assessment and Plan: patient with hepatic encephalopathy, ammonia levels of 178 on admission - started on lactulose, will add rifaximin - GI following the patient - trend ammonia level - significantly elevated ammonia levels can place patient at risk for seizures (3) GI bleed: Qualifiers: GI bleed type/associated pathology: unspecified gastrointestinal hemorrhage type Qualified Code(s): K92.2 - Gastrointestinal hemorrhage, unspecified Code(s): K92.2 - Gastrointestinal hemorrhage, unspecified Status: Acute Assessment and Plan: acute GI bleed with hematemesis and bright red blood per rectum - EGD done this morning on 01/21/2020 ; showed given also with seemed to be the source of recent GI bleeding. Also 2 nonbleeding gastric ulcers were identified. Patient does not have evidence of a esophageal varices. biopsies were taken from the stomach - Will discontinue octreotide - continue Protonix infusion (4) Alcoholic cirrhosis: Qualifiers: Ascites presence: without ascites Qualified Code(s): K70.30 - Alcoholic cirrhosis of liver without ascites Code(s): K70.30 - Alcoholic cirrhosis of liver without ascites Status: Acute Assessment and Plan: alcoholic cirrhosis, patient started on ceftriaxone given sepsis picture, elevated lactic acid, which has normalized - continue monitoring LFTs, INR, renal function (5) Open ankle wound: Qualifiers: Encounter type: initial encounter Laterality: right Qualified Code(s): S91.001A - Unspecified open wound, right ankle, initial encounter Code(s): S91.009A - Unspecified open wound, unspecified ankle, initial encounter Status: Acute Assessment and Plan: wound care consulted - will follow the recommendation (6) Sepsis: Qualifiers: Hepatic coma status: with hepatic coma Sepsis acute organ dysfunction status: with acute organ dysfunction Sepsis type: sepsis due to unspecified organism Severe sepsis acute organ dysfunction type: acute liver failure Severe sepsis shock status: unspecified Qualified Code(s): A41.9 - Sepsis, unspecified organism; R65.20 - Severe sepsis without septic shock; K72.01 - Acute and subacute hepatic failure with coma Code(s): A41.9 - Sepsis, unspecified organism Status: Acute Assessment and Plan: acute respiratory failure, hepatic encephalopathy, elevated lactic acid, elevated LFTs, leukocytosis - blood pressures have been stable, - lactic acid has normalized - blood and urine cultures have been obtained and pending. Stool cultures have also been obtained and pending - continue ceftriaxone Additional Plan will update family - discussed with Dr. Bianchi code status: Full code Critical care time spent: 41 minutes Due to a high probability of clinically significant, life threatening deterioration, the patient required my highest level of preparedness to intervene emergently and I personally spent this critical care time directly and perso
--- NOTE | 2020-01-21 09:57 | PM.OP ---
Procedure Note - Brief Procedure Note - Brief Date of procedure: 01/21/20 Pre-op diagnosis: hepatic encephalopathy, GI bleed Post-op diagnosis: other (gastric ulcers, duodenal ulcers) Procedure performed: EGD with biopsy Description of procedure: [employer] video endoscope is passed through the esophagus. No varices are identified GE junction located at 40 cm. Stomach seen is entirety including U-turn reveals several gastric ulcers in the antrum with clean white base. Each measuringapproximately0.5cm size. Duodenum reveals a larger duodenal ulcer approximately 1cm size with stigmata of recent bleeding there is a flat red spot in the base of this ulcer. No biopsies are taken because of the risk of bleeding. A biopsy is taken from the body of the stomach consent for H pylori which is tolerated well by the patient. Surgeon: Dustin Bianchi MD Findings: gastric ulcers, duodenal ulcer appears to have been source of bleeding. no varices identified
--- NOTE | 2020-01-21 10:53 | OP_ITS ---
DATE OF PROCEDURE: 01/21/2020 PROCEDURE PERFORMED: Esophagogastroduodenoscopy. PREOPERATIVE DIAGNOSES: GI bleeding. Hepatic encephalopathy. POSTOPERATIVE DIAGNOSES: Duodenal ulcer and 2 gastric ulcers. DESCRIPTION OF PROCEDURE: Informed consent for the EGD was obtained, administrative consent was given because of emergency nature of the procedure. The risks, benefits, alternatives, and indications are agreed with the staff. The patient was given no additional sedation following fine, the patient already intubated in the ICU. Instrument is the [employer] video endoscope. Following findings, the [employer] endoscope was passed through the esophagus, which appears normal. Squamocolumnar junction is intact at 40 cm. No varices are noted within the body of the esophagus. The stomach was seen in its entirety including U-turn reveals several areas of gastritis along the wall of the body of the stomach secondary to NG tube trauma. In the antrum of the stomach, two nonbleeding ulcers appear evident with clean white base, do not appear to have been bleeding. The duodenum reveals a 1 cm duodenal ulcer in the duodenal bulb with stigmata of recent bleeding. A flat red spot on the basis of this ulcer is identified. The duodenal sweep appears unremarkable. IMPRESSION: Duodenal ulcer appears to have been the source of recent gastrointestinal bleeding. The patient also appears to have 2 nonbleeding gastric ulcers. No evidence of esophageal varices. PLAN: To discontinue octreotide. Continue Protonix intravenously. Continue to monitor hemoglobin closely, transfuse as necessary until stable hematocrit and continue to watch closely in the ICU. The patient should avoid nonsteroidal anti-inflammatory agents. Biopsy taken from the stomach will be reviewed to exclude H pylori. Xiomara I MT: Jocelyn
[2020-01-21] MEDS: rifAXIMin 550 MG TABLET PO ×2 (12:17→20:17)
[2020-01-21] MEDS: SILVERGEL (ELTA) 45 ML 1 APPLIC TOPICAL (14:40)
[2020-01-21] MEDS: DEXTROSE 5%/0.9% SOD CHL 1,000 ML 75 ML IV CONT (21:59)
[2020-01-21 23:18] LABS: Glucose Point of Care 98 (65-105)
[2020-01-22] VITALS (25 sets, daily range): BP systolic 90–126; BP diastolic 56–85; PULSE 71–111; RESP 18–80; TEMP 36.6–37.3; O2SAT 92–99
[2020-01-22 00:25] LABS: Hematocrit 28.8 % (37.0-47.0); Hemoglobin 9.8 g/dL (12.0-15.0)
[2020-01-22] MEDS: LACTULOSE 20 GM/30 ML UDC 30 GM PO ×5 (04:37→19:51)
[2020-01-22] MEDS: CENTRAL LINE FLUSH 10 ML IV PUSH ×4 (04:38→19:52)
[2020-01-22 04:58] LABS: Hematocrit 29.8 % (37.0-47.0); Hemoglobin 10.2 g/dL (12.0-15.0); Mean Corpuscular HGB Conc 34.2 g/dl (32-36); Mean Corpuscular Hemoglobin 30.9 pg (26-34); Mean Corpuscular Volume 90.3 fl (80-100); Mean Platelet Volume 11.1 fl (7.4-10.4); Platelet Count Result 163 k/mm3 (150-375); Red Cell Distribution Width 16.1 % (11.5-14.5); White Blood Count 12.8 K/mm3 (4.5-10.0)
[2020-01-22 04:58] LABS: Alveolar/Arterial O2 Gradient 136.9 mmHg; Base Excess ABG -4.5 mEq/l (+/-2.0); Carboxyhemoglobin 0.1 % THb (0-2.0); Device VENTILATOR; Fractional Inspired Oxygen 35 %; HCO3 ABG 19.8 mEq/l (22.0-26.0); Methemoglobin ABG 0.1 %THb (0-1.5); Modified Allen's Test Pass; Oxygen Content ABG 14.9 %vol (16.0-22.0); Oxygen Saturation ABG 94.8 % (95.0-100.0); Oxyhemoglobin 93.2 % THb (90.0-100.0); PCO2 ABG 33.7 mmHg (35.0-45.0); PO2 ABG 73.5 mmHg (80.0-100.0); Reduced Hemoglobin 6.6 %THb (0-5.0); Site Drawn LEFT RADIAL; Total Hemoglobin 11.3 g/dL (12.0-18.0); pH ABG 7.387 (7.350-7.450)
[2020-01-22 04:59] LABS: Arterial Blood Gas PEEP 5 cmH2O; Arterial Blood Gas Tidal Volume 400 ml; Arterial Blood Gas Vent Mode CMV; Arterial Blood Gas Ventilator rate 15 /MIN
[2020-01-22 05:09] LABS: Ammonia 71 umol/L (9-30)
[2020-01-22 05:11] LABS: Alanine Aminotransferase 31 U/L (4-35); Albumin Level 2.6 g/dL (3.5-5.1); Alkaline Phosphatase 153 U/L (38-126); Anion Gap 7.1 mmol/L (7-16); Aspartate Amino Transferase 64 U/L (14-36); Bilirubin,Total 1.8 mg/dL (0.2-1.3); Blood Urea Nitrogen 17 mg/dL (7-17); Calcium 7.4 mg/dL (8.4-10.2); Carbon Dioxide 20 mmol/L (22-30); Chloride 116 mmol/L (98-107); Estimated CRCL calculation 64 ml/min; Estimated Glomerular Filt Rate > 60; Glucose 125 mg/dL (65-105); Magnesium 1.8 mg/dL (1.6-2.3); Phosphorus 3.4 mg/dL (2.5-4.5); Potassium 3.1 mmol/L (3.4-5.0); Sodium 140 mmol/L (137-145)
[2020-01-22] MEDS: rifAXIMin 550 MG TABLET PO ×2 (08:19→19:52)
[2020-01-22] MEDS: THIAMINE HCL 200 MG/2 ML VIAL 100 MG IV PUSH (08:19)
[2020-01-22] MEDS: SILVERGEL (ELTA) 45 ML 1 APPLIC TOPICAL (08:20)
[2020-01-22] MEDS: FUROSEMIDE INJ 40 MG/4 ML VIAL 20 MG IV PUSH (09:22)
[2020-01-22] MEDS: POTASSIUM CHLORIDE 20 MEQ PACKET (FOR LIQUID) 40 MEQ PO (09:22)
--- NOTE | 2020-01-22 10:20 | WPDGIPROGNO ---
Progress Note: A&P Additional Plan Patient remains intubated and sedated on the ventilator. No additional bleeding reported. Physical exam reveals patient to be intubated. Receiving lactulose via NG tube. Lungs are clear. Heart without murmur. Abdomen bowel sounds are present soft nontender. Labs reveal hemoglobin 10.1, hematocrit 29.8, MCV 90. Protime 15, INR 1.2, AST 64, ALT 31, total bilirubin 1.8, ammonia level 71. Impression 1. Duodenal ulcer status post abrupt bleeding patient also had gastric ulcers by EGD. Plan is to continue proton pump inhibitor. Avoid nonsteroidal anti-inflammatory agents. We may want to consider a follow-up EGD in 2 months. 2. Respiratory failure. Patient remains on the ventilator in the ICU. Director External Communications following. 3. Alcoholic liver disease. Continue to monitor LFTs at this point treat conservatively. Alcohol avoidance in the future is strongly advised. 4. Hepatic encephalopathy. Elevated ammonia level noted. Patient receiving lactulose via NG tube. Will continue this for the interim. We may be able to advanced nutritional intake with tube feedings via NG tube when others agree. Subjective Date/time seen: 01/22/20 10:20 Objective Data Vital Signs Vital Signs: Vital Signs - 24 hr 01/21/20 10:46 01/21/20 10:56 01/21/20 11:06 Temperature 98.0 F 97.8 F Pulse Rate 84 87 85 Respiratory Rate 19 19 Blood Pressure 99/66 L 99/68 L Pulse Oximetry 100 100 100 01/21/20 12:00 01/21/20 12:06 01/21/20 13:06 Temperature 98.4 F 98.4 F 98.4 F Pulse Rate 89 86 88 Respiratory Rate 15 19 20 Blood Pressure 99/67 L 104/68 98/68 L Pulse Oximetry 100 100 99 01/21/20 13:38 01/21/20 14:00 01/21/20 14:35 Temperature 98.4 F 97.8 F Pulse Rate 92 80 84 Respiratory Rate 20 17 19 Blood Pressure 104/70 99/72 L 102/68 Pulse Oximetry 99 100 100 01/21/20 14:43 01/21/20 14:53 01/21/20 15:53 Temperature 98.0 F 98.0 F Pulse Rate 91 87 80 Respiratory Rate 19 18 Blood Pressure 121/82 102/76 Pulse Oximetry 100 100 100 01/21/20 16:00 01/21/20 16:35 01/21/20 16:53 Temperature 98.4 F 98.2 F Pulse Rate 79 83 78 Respiratory Rate 15 20 Blood Pressure 99/71 L 100/68 Pulse Oximetry 100 100 100 01/21/20 17:14 01/21/20 17:20 01/21/20 18:00 Temperature 98.2 F Pulse Rate 80 80 79 Respiratory Rate 19 20 15 Blood Pressure 97/72 L 102/74 Pulse Oximetry 100 100 01/21/20 20:00 01/21/20 20:34 01/21/20 21:10 Temperature 97.5 F L Pulse Rate 85 82 Respiratory Rate 18 Blood Pressure 120/77 Pulse Oximetry 100 100 100 01/21/20 21:55 01/21/20 22:00 01/21/20 23:25 Temperature Pulse Rate 80 80 77 Respiratory Rate 20 18 Blood Pressure 100/70 Pulse Oximetry 100 100 01/22/20 00:00 01/22/20 02:00 01/22/20 02:10 Temperature 98.2 F Pulse Rate 92 96 96 Respiratory Rate 18 18 Blood Pressure 126/82 125/85 Pulse Oximetry 99 98 97 01/22/20 04:00 01/22/20 04:21 01/22/20 04:38 Temperature 97.9 F Pulse Rate 84 85 81 Respiratory Rate 18 20 Blood Pressure 108/68 Pulse Oximetry 92 92 01/22/20 06:00 01/22/20 08:14 Temperature Pulse Rate 83 74 Respiratory Rate 18 Blood Pressure 95/74 L Pulse Oximetry 96 95 Intake/Output Intake/Output: Intake & Output 01/19/20 01/20/20 01/21/20 01/22/20 23:59 23:59 23:59 23:59 Intake Total 4271.2 1206.2 Output Total 1550 550 Balance 2721.2 656.2 Meds/Results Medications: Active Medications Generic Name Dose Route Start Last Admin Trade Name Freq PRN Reason Stop Dose Admin Dextrose/Sodium Chloride 1,000 mls @ 75 mls/hr 01/21/20 01:10 01/22/20 06:25 Dextrose 5% Sodium Chloride 0.9% IV CONT 75 mls/hr .[id number] SHAYY Infusion Midazolam HCl 50 mg in 100 mls @ 0 mls/hr 01/21/20 03:00 01/22/20 07:18 Versed 50 Mg/D5w 100 Ml IV CONT 0 mg/hr .Q0M SHAYY 0 mls/hr Titration Protocol 0 MG/HR Fentanyl Citrate 2,500 mcg in 250 mls @ 0 mls/hr
--- NOTE | 2020-01-22 11:07 | WPDCDIQUERY2 ---
CDI Query Clarification Request - Sepsis has been documented - No infection has been documented - Per CMS definition, sepsis is a systemic response to infection. Please clarify either the infection/suspected infection as cause for sepsis or if sepsis has been ruled out. <Sue Estrada RN - Last Filed: 01/22/20 11:10>
[2020-01-22] MEDS: DEXTROSE 5%/0.9% SOD CHL 1,000 ML 75 ML IV CONT (11:24)
--- NOTE | 2020-01-22 11:29 | WPDINTPN ---
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 most likely secondary hepatic encephalopathy - Patient remains on CMV mode of ventilation, peep of 5, FiO2 of 50% - chest x-ray and ABGs reviewed, will wean FiO2 as tolerated - will discontinue fentanyl and Versed infusion, will allow the patient to wake up. When she wakes up will place her on SBT and evaluate for extubation. - Will diurese gently (2) Hepatic encephalopathy: Code(s): K72.90 - Hepatic failure, unspecified without coma Status: Acute Assessment and Plan: patient with hepatic encephalopathy, ammonia levels of 178 on admission - continue lactulose and rifaximin, ammonia level down to 71 on 01/22/2020 - GI following the patient - encephalopathy could be related to elevated ammonia levels (3) GI bleed: Qualifiers: GI bleed type/associated pathology: unspecified gastrointestinal hemorrhage type Qualified Code(s): K92.2 - Gastrointestinal hemorrhage, unspecified Code(s): K92.2 - Gastrointestinal hemorrhage, unspecified Status: Acute Assessment and Plan: acute GI bleed with hematemesis and bright red blood per rectum - EGD done this morning on 01/21/2020 ; showed given also with seemed to be the source of recent GI bleeding. Also 2 nonbleeding gastric ulcers were identified. Patient does not have evidence of a esophageal varices. biopsies were taken from the stomach - octreotide was discontinued - Protonix infusion switched to Protonix IV q.12 hours - will introduce trickle tube feeds per GI (4) Alcoholic cirrhosis: Qualifiers: Ascites presence: without ascites Qualified Code(s): K70.30 - Alcoholic cirrhosis of liver without ascites Code(s): K70.30 - Alcoholic cirrhosis of liver without ascites Status: Acute Assessment and Plan: alcoholic cirrhosis, patient started on ceftriaxone given sepsis picture, elevated lactic acid, which has normalized - continue monitoring LFTs, INR, renal function (5) Open ankle wound: Qualifiers: Encounter type: initial encounter Laterality: right Qualified Code(s): S91.001A - Unspecified open wound, right ankle, initial encounter Code(s): S91.009A - Unspecified open wound, unspecified ankle, initial encounter Status: Acute Assessment and Plan: wound care consulted - will follow the recommendation (6) Sepsis: Qualifiers: Sepsis type: sepsis due to unspecified organism Sepsis acute organ dysfunction status: with acute organ dysfunction Severe sepsis acute organ dysfunction type: acute liver failure Hepatic coma status: with hepatic coma Severe sepsis shock status: unspecified Qualified Code(s): A41.9 - Sepsis, unspecified organism; R65.20 - Severe sepsis without septic shock; K72.01 - Acute and subacute hepatic failure with coma Code(s): A41.9 - Sepsis, unspecified organism Status: Acute Assessment and Plan: suspected infection causing sepsis secondary to acute respiratory failure, hepatic encephalopathy, elevated lactic acid, elevated LFTs, leukocytosis - resolving sepsis - blood pressures have been stable, - lactic acid has normalized - blood cultures negative x2 - urine cultures have been obtained and pending. Stool cultures have also been obtained and pending - continue ceftriaxone Additional Plan will update family - discussed with Dr. Bianchi code status: Full code Critical care time spent: 33 minutes
--- NOTE | 2020-01-22 12:01 | PCFNICU ---
ICU Rounding Note: Pt current nutrition is NPO. Nutrition recommendation: Agree Last recorded weight is 72.7 kg. Bowel Motility:+BM reported 01/21 Labs Reviewed: Glu 125, Alb 2.6,K 3.1,Hct 29.8,Hgb 10.2 Meds Noted:Thiamine, Rocephin, Lactulose Wounds: right ankle-ulcer noted. Additional Notes: Patient remains on mechanical vent. NPO at this time, NGT placed. Gastric Ulcer noted. Tube feeding recommendations: Vital AF 1.2 at 20 ml/hr advancing to goal rate of 60 ml/hr. Goal rate will provide patient with 1584 kcals/99 gms protein/1070 ml water. Following daily in ICU rounds. Assessing/reassessing every 3 days.
[2020-01-22] MEDS: PANTOPRAZOLE SODIUM IV 40 MG VIAL IV PUSH (19:52)
[2020-01-22 21:08] LABS: Hematocrit 28.9 % (37.0-47.0); Hemoglobin 9.5 g/dL (12.0-15.0)
[2020-01-22] MEDS: SODIUM CHLORIDE 0.9% IV 500 ML 999 ML IV CONT (21:18)
[2020-01-23] VITALS (30 sets, daily range): BP systolic 78–120; BP diastolic 53–80; PULSE 50–98; RESP 15–20; TEMP 36.4–37; O2SAT 92–99
[2020-01-23] MEDS: SODIUM CHLORIDE 0.9% IV 500 ML 999 ML IV CONT (00:49)
[2020-01-23] MEDS: LACTULOSE 20 GM/30 ML UDC 30 GM PO ×7 (00:49→23:59)
[2020-01-23] MEDS: DEXTROSE 5%/0.9% SOD CHL 1,000 ML 75 ML IV CONT ×2 (00:50→11:00)
[2020-01-23] MEDS: NOREPINEPHRINE 8 MG/D5W 250 ML 8 MG/250 ML BAG 9.4 MG IV CONT (03:19)
[2020-01-23 04:24] LABS: Alveolar/Arterial O2 Gradient 140.9 mmHg; Arterial Blood Gas Vent Mode CMV; Arterial Blood Gas Ventilator rate 15 /MIN; Carboxyhemoglobin 0.2 % THb (0-2.0); Device VENTILATOR; Fractional Inspired Oxygen 35 %; HCO3 ABG 15.3 mEq/l (22.0-26.0); Methemoglobin ABG 0.2 %THb (0-1.5); Modified Allen's Test Pass; Oxygen Saturation ABG 95.8 % (95.0-100.0); Oxyhemoglobin 94.4 % THb (90.0-100.0); PCO2 ABG 25.8 mmHg (35.0-45.0); PO2 ABG 78.7 mmHg (80.0-100.0); PO2 FiO2 Ratio Arterial Blood 2.25 %; Reduced Hemoglobin 5.2 %THb (0-5.0); Site Drawn LEFT RADIAL; Total Hemoglobin 13.5 g/dL (12.0-18.0)
[2020-01-23 04:25] LABS: Arterial Blood Gas PEEP 5 cmH2O; Arterial Blood Gas Tidal Volume 400 ml
[2020-01-23 05:01] LABS: Hematocrit 31.4 % (37.0-47.0); Hemoglobin 10.6 g/dL (12.0-15.0); Mean Corpuscular HGB Conc 33.8 g/dl (32-36); Mean Corpuscular Hemoglobin 30.7 pg (26-34); Mean Platelet Volume 11.2 fl (7.4-10.4); Platelet Count Result 153 k/mm3 (150-375); Red Blood Count 3.45 M/mm3 (4.2-5.4); Red Cell Distribution Width 15.9 % (11.5-14.5); White Blood Count 12.8 K/mm3 (4.5-10.0)
[2020-01-23 05:14] LABS: Alanine Aminotransferase 45 U/L (4-35); Albumin Level 2.4 g/dL (3.5-5.1); Alkaline Phosphatase 154 U/L (38-126); Ammonia 31 umol/L (9-30); Anion Gap 6.2 mmol/L (7-16); Aspartate Amino Transferase 109 U/L (14-36); Bilirubin,Total 1.3 mg/dL (0.2-1.3); Blood Urea Nitrogen 13 mg/dL (7-17); Calcium 7.1 mg/dL (8.4-10.2); Carbon Dioxide 19 mmol/L (22-30); Chloride 120 mmol/L (98-107); Estimated CRCL calculation 72 ml/min; Estimated Glomerular Filt Rate > 60; Glucose 108 mg/dL (65-105); Lactic Acid 0.9 mmol/L (0.7-2.1); Magnesium 1.7 mg/dL (1.6-2.3); Phosphorus 2.8 mg/dL (2.5-4.5); Potassium 3.2 mmol/L (3.4-5.0); Sodium 142 mmol/L (137-145)
[2020-01-23] MEDS: CENTRAL LINE FLUSH 10 ML IV PUSH ×4 (05:53→21:16)
[2020-01-23] MEDS: PANTOPRAZOLE SODIUM IV 40 MG VIAL IV PUSH ×2 (09:13→21:14)
[2020-01-23] MEDS: rifAXIMin 550 MG TABLET PO ×2 (09:13→21:15)
[2020-01-23] MEDS: THIAMINE HCL 200 MG/2 ML VIAL 100 MG IV PUSH (09:14)
[2020-01-23] MEDS: SILVERGEL (ELTA) 45 ML 1 APPLIC TOPICAL (09:14)
--- NOTE | 2020-01-23 10:49 | WPDGIPROGNO ---
Progress Note: A&P Additional Plan Patient remains intubated in the intensive care unit. No obvious continued bleeding described. Physical exam reveals patient to be intubated site level of sedation somewhat unclear. Patient has remained poorly responsive. Lungs appear clear. Abdomen bowel sounds are present soft nontender no organomegaly. Labs reveal hemoglobin 10.6, hematocrit 31.4, MCV 91. This been stable. LFTs with AST 109, ALT 45, alk-phos 154, total bilirubin 1.3, ammonia level 31. Impression 1. Upper GI bleeding. Duodenal ulcer with gastric ulcers also identified. No active continued bleeding. Plan is to continue proton pump therapy avoid nonsteroidal anti-inflammatory agents. Eventual follow-up EGD in 2 months may be of some benefit. Long-term latif 2. Alcoholic liver disease. Modest elevation of LFTs noted. Continue monitor conservatively. 3. Hepatic encephalopathy. Patient should remain on lactulose. Currently via NG tube. With altered mental state diet may need to be given via NG tube. Continued supportive care. 4. Respiratory failure. Patient remains intubated. Management per electronic design engineer service. Subjective Date/time seen: 01/23/20 10:49 Objective Data Vital Signs Vital Signs: Vital Signs - 24 hr 01/22/20 10:58 01/22/20 11:04 01/22/20 11:25 Temperature Pulse Rate 86 84 87 Respiratory Rate 20 20 Blood Pressure Pulse Oximetry 98 01/22/20 11:26 01/22/20 12:00 01/22/20 14:00 Temperature 99.1 F Pulse Rate 87 89 86 Respiratory Rate 80 H 18 18 Blood Pressure 115/79 120/84 Pulse Oximetry 97 97 01/22/20 15:05 01/22/20 16:00 01/22/20 16:36 Temperature 98.9 F Pulse Rate 111 H 94 93 Respiratory Rate 20 Blood Pressure 118/71 Pulse Oximetry 93 98 92 01/22/20 18:00 01/22/20 19:34 01/22/20 20:00 Temperature 98.4 F Pulse Rate 88 94 71 Respiratory Rate 19 19 18 Blood Pressure 111/73 90/56 L Pulse Oximetry 95 95 01/22/20 20:30 01/22/20 22:00 01/22/20 23:04 Temperature Pulse Rate 75 74 74 Respiratory Rate 20 Blood Pressure 90/71 L Pulse Oximetry 97 98 99 01/23/20 00:00 01/23/20 01:14 01/23/20 01:31 Temperature 98.1 F 98.6 F 98.2 F Pulse Rate 71 73 69 Respiratory Rate 18 18 18 Blood Pressure 89/62 L 91/66 L 105/73 Pulse Oximetry 99 97 96 01/23/20 01:58 01/23/20 02:00 01/23/20 02:31 Temperature 98.4 F Pulse Rate 98 69 65 Respiratory Rate 18 18 Blood Pressure 98/76 L 88/64 L Pulse Oximetry 92 92 94 01/23/20 03:19 01/23/20 04:00 01/23/20 04:27 Temperature 98.3 F Pulse Rate 61 59 L 58 L Respiratory Rate 18 Blood Pressure 79/60 L 92/64 L Pulse Oximetry 93 93 01/23/20 06:00 01/23/20 08:00 01/23/20 08:50 Temperature 97.5 F L Pulse Rate 56 L 51 L 55 L Respiratory Rate 18 19 Blood Pressure 103/71 91/65 L Pulse Oximetry 94 96 99 01/23/20 10:00 Temperature Pulse Rate 53 L Respiratory Rate 15 Blood Pressure 95/73 L Pulse Oximetry 98 Intake/Output Intake/Output: Intake & Output 01/20/20 01/21/20 01/22/20 01/23/20 23:59 23:59 23:59 23:59 Intake Total 4271.2 2995.5 2185.7 Output Total 1550 2300 750 Balance 2721.2 695.5 1435.7 Meds/Results Medications: Active Medications Generic Name Dose Route Start Last Admin Trade Name Freq PRN Reason Stop Dose Admin Dextrose/Sodium Chloride 1,000 mls @ 75 mls/hr 01/21/20 01:10 01/23/20 06:00 Dextrose 5% Sodium Chloride 0.9% IV CONT 75 mls/hr .[id number] SHAYY Infusion Ceftriaxone Sodium/Dextrose 1 gm in 50 mls @ 100 mls/hr 01/21/20 03:45 01/23/20 06:26 Rocephin 1 Gm/D5w 50 Ml IVPB Infused DAILY@0600 SHAYY Infusion Dexmedetomidine HCl 400 mcg in 100 mls @ 7.22 mls/hr 01/22/20 19:05 01/23/20 06:00 Precedex 400 Mcg/100 Ml IV CONT 0.4 mcg/kg/hr .[id number] SHAYY 7.2 mls/hr Titration Protocol 0.4 MCG/KG/HR Norepinephrine Bitartrate 8 mg in 250 mls @ 0 mls/hr 01/23/20 00:35 01/23/20 06:00 Levophed 8
--- NOTE | 2020-01-23 11:21 | PCFNICU ---
ICU Rounding Note: Pt current nutrition is Vital AF 1.2 at 20 ml/hr-on hold at this time. Nutrition recommendation: Agree Last recorded weight is 72.2 kg. Bowel Motility:+BM reported 01/21 Labs Reviewed:Glu 120,K 3.2,Cr 6.2,Alb 2.4 Meds Noted: Precedex, Levophed, Protonix, Lactulose,Rocephin, Thiamine, D5 at 75 ml/hr Additional Notes: Patient had dark maroon bowel movements last night. TF on hold. Awaiting diet orders. Following daily in ICU rounds. Assessing/reassessing every Monday and Monday.
--- NOTE | 2020-01-23 12:14 | WPDINTPN ---
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 most likely secondary hepatic encephalopathy - Patient remains on CMV mode of ventilation, peep of 5, FiO2 of 50% - chest x-ray and ABGs reviewed, will wean FiO2 as tolerated - patient on Precedex infusion. - diuresed well yesterday, low blood pressures early this morning will hold diuresis (2) Hepatic encephalopathy: Code(s): K72.90 - Hepatic failure, unspecified without coma Status: Acute Assessment and Plan: patient with hepatic encephalopathy, ammonia levels of 178 on admission - continue lactulose and rifaximin, ammonia level down to 31 on 01/23/2020 - GI following the patient - patient opens her eyes and nods to questions, definitely more awake (3) GI bleed: Qualifiers: GI bleed type/associated pathology: unspecified gastrointestinal hemorrhage type Qualified Code(s): K92.2 - Gastrointestinal hemorrhage, unspecified Code(s): K92.2 - Gastrointestinal hemorrhage, unspecified Status: Acute Assessment and Plan: acute GI bleed with hematemesis and bright red blood per rectum - EGD done this morning on 01/21/2020 ; showed given also with seemed to be the source of recent GI bleeding. Also 2 nonbleeding gastric ulcers were identified. Patient does not have evidence of a esophageal varices. biopsies were taken from the stomach - octreotide was discontinued - Protonix infusion switched to Protonix IV q.12 hours - patient had 3 large bowel movements last night, received 1 unit of packed RBC early this morning ( 01/23/2020) - discuss with GI, recommended doing a lavaged. Hold tube feeds for now, continue PPI q.12 hours (4) Alcoholic cirrhosis: Qualifiers: Ascites presence: without ascites Qualified Code(s): K70.30 - Alcoholic cirrhosis of liver without ascites Code(s): K70.30 - Alcoholic cirrhosis of liver without ascites Status: Acute Assessment and Plan: alcoholic cirrhosis, patient started on ceftriaxone given sepsis picture, elevated lactic acid, which has normalized - continue monitoring LFTs, INR, renal function - continue thiamine and folic acid (5) Open ankle wound: Qualifiers: Encounter type: initial encounter Laterality: right Qualified Code(s): S91.001A - Unspecified open wound, right ankle, initial encounter Code(s): S91.009A - Unspecified open wound, unspecified ankle, initial encounter Status: Acute Assessment and Plan: wound care consulted - will follow the recommendation (6) Sepsis: Qualifiers: Sepsis type: sepsis due to unspecified organism Sepsis acute organ dysfunction status: with acute organ dysfunction Severe sepsis acute organ dysfunction type: acute liver failure Hepatic coma status: with hepatic coma Severe sepsis shock status: unspecified Qualified Code(s): A41.9 - Sepsis, unspecified organism; R65.20 - Severe sepsis without septic shock; K72.01 - Acute and subacute hepatic failure with coma Code(s): A41.9 - Sepsis, unspecified organism Status: Acute Assessment and Plan: suspected infection causing sepsis secondary to acute respiratory failure, hepatic encephalopathy, elevated lactic acid, elevated LFTs, leukocytosis - resolving sepsis - blood pressures have been low, could be related to GI bleed. Patient has been placed on low-dose Levophed at 1 mcg/min - lactic acid has normalized - blood cultures negative x2 - urine culture i
[2020-01-24] VITALS (50 sets, daily range): BP systolic 80–159; BP diastolic 48–109; PULSE 47–87; RESP 13–33; TEMP 36.4–36.9; O2SAT 87–99
[2020-01-24 03:50] LABS: Base Excess ABG -6.8 mEq/l (+/-2.0); Carboxyhemoglobin 0.3 % THb (0-2.0); Device VENTILATOR; Fractional Inspired Oxygen 40 %; HCO3 ABG 16.8 mEq/l (22.0-26.0); Methemoglobin ABG 0.2 %THb (0-1.5); Modified Allen's Test Pass; Oxygen Content ABG 16.1 %vol (16.0-22.0); Oxygen Saturation ABG 95.6 % (95.0-100.0); Oxyhemoglobin 94.1 % THb (90.0-100.0); PCO2 ABG 28.3 mmHg (35.0-45.0); PO2 ABG 77.7 mmHg (80.0-100.0); PO2 FiO2 Ratio Arterial Blood 1.94 %; Reduced Hemoglobin 5.4 %THb (0-5.0); Site Drawn RIGHT RADIAL; Total Hemoglobin 12.1 g/dL (12.0-18.0); pH ABG 7.391 (7.350-7.450)
[2020-01-24 03:51] LABS: Arterial Blood Gas PEEP 5 cmH2O; Arterial Blood Gas Tidal Volume 400 ml; Arterial Blood Gas Vent Mode CMV; Arterial Blood Gas Ventilator rate 15 /MIN
[2020-01-24] MEDS: DEXTROSE 5%/0.9% SOD CHL 1,000 ML 75 ML IV CONT ×2 (04:04→17:47)
[2020-01-24 04:16] LABS: Hematocrit 33.6 % (37.0-47.0); Hemoglobin 11.4 g/dL (12.0-15.0); Mean Corpuscular HGB Conc 33.9 g/dl (32-36); Mean Corpuscular Volume 91.3 fl (80-100); Mean Platelet Volume 11.7 fl (7.4-10.4); Platelet Count Result 183 k/mm3 (150-375); Red Blood Count 3.68 M/mm3 (4.2-5.4); Red Cell Distribution Width 16.3 % (11.5-14.5); White Blood Count 11.3 K/mm3 (4.5-10.0)
[2020-01-24 04:31] LABS: Ammonia 29 umol/L (9-30)
[2020-01-24 04:34] LABS: Alanine Aminotransferase 48 U/L (4-35); Albumin Level 2.5 g/dL (3.5-5.1); Alkaline Phosphatase 183 U/L (38-126); Anion Gap 6.9 mmol/L (7-16); Aspartate Amino Transferase 103 U/L (14-36); Blood Urea Nitrogen 10 mg/dL (7-17); Calcium 7.7 mg/dL (8.4-10.2); Carbon Dioxide 18 mmol/L (22-30); Chloride 120 mmol/L (98-107); Estimated CRCL calculation 81 ml/min; Estimated Glomerular Filt Rate > 60; Glucose 110 mg/dL (65-105); Magnesium 1.8 mg/dL (1.6-2.3); Phosphorus 2.9 mg/dL (2.5-4.5); Potassium 2.9 mmol/L (3.4-5.0); Sodium 142 mmol/L (137-145)
[2020-01-24] MEDS: LACTULOSE 20 GM/30 ML UDC 30 GM PO ×3 (04:37→20:44)
[2020-01-24] MEDS: CENTRAL LINE FLUSH 10 ML IV PUSH ×4 (06:59→20:48)
[2020-01-24 07:35] LABS: Lactic Acid 0.7 mmol/L (0.7-2.1)
[2020-01-24] MEDS: rifAXIMin 550 MG TABLET PO ×2 (08:38→20:41)
[2020-01-24] MEDS: SILVERGEL (ELTA) 45 ML 1 APPLIC TOPICAL (08:39)
[2020-01-24] MEDS: THIAMINE HCL 200 MG/2 ML VIAL 100 MG IV PUSH (08:39)
[2020-01-24] MEDS: PANTOPRAZOLE SODIUM IV 40 MG VIAL IV PUSH ×2 (08:39→20:48)
--- NOTE | 2020-01-24 10:41 | WPDGIPROGNO ---
Progress Note: A&P Additional Plan Patient remains intubated in the ICU. Poorly responsive at present. May be sedated still some period physical exam reveals abdomen to be soft. Bowel sounds are present soft nontender with no organomegaly. Labs reveal hemoglobin 11.4 after transfusion yesterday. Impression 1. Upper GI bleeding. Appears to be from duodenal ulcer. Patient also has gastric ulcers that were not bleeding. Passed a large amount of old blood yesterday. Unlikely that this for is from active GI bleeding. Hemoglobin has responded appropriately to transfusion. Plan to advance tube feedings. Continue monitor hemoglobin daily. Intravenous proton pump inhibitor advised. 2. Alcohol abuse. 3. Alcoholic liver disease. 4. Hepatic encephalopathy. Patient now on lactulose via NGT 5. Respiratory failure. Patient remains on vent in the ICU. Subjective Date/time seen: 01/24/20 10:41 Objective Data Vital Signs Vital Signs: Vital Signs - 24 hr 01/23/20 11:04 01/23/20 11:21 01/23/20 12:00 Temperature 97.6 F Pulse Rate 58 L 50 L Respiratory Rate 15 Blood Pressure 95/73 L 84/64 L Pulse Oximetry 95 96 01/23/20 14:00 01/23/20 14:21 01/23/20 16:00 Temperature 97.9 F Pulse Rate 51 L 59 L 51 L Respiratory Rate 15 18 Blood Pressure 83/53 L 100/72 Pulse Oximetry 97 96 93 01/23/20 17:45 01/23/20 18:00 01/23/20 18:32 Temperature Pulse Rate 57 L 57 L 57 L Respiratory Rate 15 Blood Pressure 120/78 Pulse Oximetry 96 97 01/23/20 18:33 01/23/20 19:45 01/23/20 20:00 Temperature 98.4 F Pulse Rate 52 L 53 L Respiratory Rate 16 Blood Pressure 120/78 105/77 Pulse Oximetry 95 98 01/23/20 21:30 01/23/20 22:00 01/23/20 22:52 Temperature Pulse Rate 52 L 53 L Respiratory Rate 16 Blood Pressure 84/57 L 105/74 Pulse Oximetry 96 95 01/24/20 00:00 01/24/20 00:18 01/24/20 01:37 Temperature 98.3 F Pulse Rate 61 58 L 47 L Respiratory Rate 16 Blood Pressure 101/65 Pulse Oximetry 88 L 94 01/24/20 02:00 01/24/20 04:00 01/24/20 04:10 Temperature 97.6 F Pulse Rate 52 L 54 L 51 L Respiratory Rate 16 16 Blood Pressure 118/76 125/80 Pulse Oximetry 94 95 97 01/24/20 06:00 01/24/20 06:54 01/24/20 08:00 Temperature 97.7 F Pulse Rate 49 L 50 L 48 L Respiratory Rate 16 16 15 Blood Pressure 113/73 105/70 Pulse Oximetry 97 95 01/24/20 08:40 Temperature Pulse Rate 53 L Respiratory Rate Blood Pressure Pulse Oximetry 96 Intake/Output Intake/Output: Intake & Output 01/21/20 01/22/20 01/23/20 01/24/20 23:59 23:59 23:59 23:59 Intake Total 4271.2 2995.5 4110.1 755 Output Total 1550 2300 1800 900 Balance 2721.2 695.5 2310.1 -145 Meds/Results Medications: Active Medications Generic Name Dose Route Start Last Admin Trade Name Freq PRN Reason Stop Dose Admin Folic Acid 1 mg 01/24/20 09:00 Folic Acid Inj IV PUSH QAM SHAYY Dextrose/Sodium Chloride 1,000 mls @ 75 mls/hr 01/21/20 01:10 01/24/20 04:04 Dextrose 5% Sodium Chloride 0.9% IV CONT 75 mls/hr .[id number] SHAYY Administration Ceftriaxone Sodium/Dextrose 1 gm in 50 mls @ 100 mls/hr 01/21/20 03:45 01/24/20 06:57 Rocephin 1 Gm/D5w 50 Ml IVPB 100 mls/hr DAILY@0600 SHAYY Administration Dexmedetomidine HCl 400 mcg in 100 mls @ 5.415 mls/hr 01/22/20 19:05 01/24/20 08:00 Precedex 400 Mcg/100 Ml IV CONT 0.3 mcg/kg/hr .[id number] SHAYY 5.4 mls/hr Titration Protocol 0.3 MCG/KG/HR Norepinephrine Bitartrate 8 mg in 250 mls @ 3.75 mls/hr 01/23/20 00:35 01/24/20 08:00 Levophed 8 Mg/D5w 250 Ml IV CONT 2 mcg/min .[id number] SHAYY 3.8 mls/hr Titration Protocol 2 MCG/MIN Lactulose 30 gm 01/24/20 10:40 Lactulose PO Q12H SHAYY Multi-Ingred Cream/Lotion/Oil/Oint 1 applic 01/21/20 09:00 01/24/20 08:38 Lubrifresh Pm Eye Ointment EACH EYE 1 applic Q12HR SHAYY Administration Pantoprazole Sodium 40
--- NOTE | 2020-01-24 11:38 | PCNFU ---
Nutrition Follow-Up Complete: Inadequate oral intake R/T inability to consume PO foods as evidence by NPO order Goal: Total intake will meet estimated nutrition needs Progressing towards goal. We will continue current goal. Pt current nutrition is NPO. Nutrition recommendation: Agree at this time. Last recorded weight is 74 kg. Bowel Motility:+BM /6-liquid stool Labs Reviewed:K 2.9,Glu 110,Alb 2.5 Meds Noted:Precidex,Levophed,Rocephin Additional Notes: Patient currently on mechanical vent with plans for breathing trail today and possible extubation. Tube feedings remain on hold. Right ankle ulcer noted. Monitoring: Diet, EN/PPN, GI, skin, labs every three days
[2020-01-24 12:34] LABS: Alveolar/Arterial O2 Gradient 161.6 mmHg; Base Excess ABG -7.6 mEq/l (+/-2.0); Carboxyhemoglobin 0.3 % THb (0-2.0); Fractional Inspired Oxygen 40 %; HCO3 ABG 14.8 mEq/l (22.0-26.0); Methemoglobin ABG 0.1 %THb (0-1.5); Oxygen Content ABG 15.9 %vol (16.0-22.0); Oxygen Saturation ABG 97.8 % (95.0-100.0); Oxyhemoglobin 96.4 % THb (90.0-100.0); PO2 ABG 97.8 mmHg (80.0-100.0); PO2 FiO2 Ratio Arterial Blood 2.45 %; Reduced Hemoglobin 3.2 %THb (0-5.0); Total Hemoglobin 11.6 g/dL (12.0-18.0); pH ABG 7.439 (7.350-7.450)
[2020-01-24 12:35] LABS: Arterial Blood Gas Vent Mode SPONTANEOUS; Device VENTILATOR; Modified Allen's Test Pass; PCO2 ABG 22.4 mmHg (35.0-45.0); Site Drawn RIGHT RADIAL
[2020-01-24 12:36] LABS: Arterial Blood Gas PEEP 5 cmH2O; Arterial Blood Gas Pressure Support 8 cmH2O
--- NOTE | 2020-01-24 12:57 | WPDINTPN ---
Progress Note: A&P Assessment and Plan (1) Acute respiratory failure: Qualifiers: Respiratory failure complication: unspecified whether with hypoxia or hypercapnia Qualified Code(s): J96.00 - Acute respiratory failure, unspecified whether with hypoxia or hypercapnia Code(s): J96.00 - Acute respiratory failure, unspecified whether with hypoxia or hypercapnia Status: Acute Assessment and Plan: patient with encephalopathy, impending respiratory failure was intubated on 01/21/2020 otm consultant. most likely secondary hepatic encephalopathy - Patient remains on CMV mode of ventilation, peep of 5, FiO2 of 50% - chest x-ray and ABGs reviewed, will wean FiO2 as tolerated - patient on Precedex infusion. - will place patient on SBT and evaluate for extubation (2) Hepatic encephalopathy: Code(s): K72.90 - Hepatic failure, unspecified without coma Status: Acute Assessment and Plan: patient with hepatic encephalopathy, ammonia levels of 178 on admission - continue lactulose and rifaximin, ammonia level down to 29 on 01/24/2020 - GI following the patient - patient opens her eyes and nods to questions and follow simple commands (3) GI bleed: Qualifiers: GI bleed type/associated pathology: unspecified gastrointestinal hemorrhage type Qualified Code(s): K92.2 - Gastrointestinal hemorrhage, unspecified Code(s): K92.2 - Gastrointestinal hemorrhage, unspecified Status: Acute Assessment and Plan: acute GI bleed with hematemesis and bright red blood per rectum - EGD done this morning on 01/21/2020 ; showed given also with seemed to be the source of recent GI bleeding. Also 2 nonbleeding gastric ulcers were identified. Patient does not have evidence of a esophageal varices. biopsies were taken from the stomach - octreotide was discontinued - Protonix infusion switched to Protonix IV q.12 hours - patient had 3 large bowel movements last night, received 1 unit of packed RBC early this morning ( 01/23/2020), her NG lavage was normal - hemoglobin has been stable in the last 24 hours. no signs of active bleeding noted (4) Alcoholic cirrhosis: Qualifiers: Ascites presence: without ascites Qualified Code(s): K70.30 - Alcoholic cirrhosis of liver without ascites Code(s): K70.30 - Alcoholic cirrhosis of liver without ascites Status: Acute Assessment and Plan: alcoholic cirrhosis, patient started on ceftriaxone given sepsis picture, elevated lactic acid, which has normalized - continue monitoring LFTs, INR, renal function - continue thiamine and folic acid (5) Open ankle wound: Qualifiers: Encounter type: initial encounter Laterality: right Qualified Code(s): S91.001A - Unspecified open wound, right ankle, initial encounter Code(s): S91.009A - Unspecified open wound, unspecified ankle, initial encounter Status: Acute Assessment and Plan: wound care consulted - will follow the recommendation (6) Sepsis: Qualifiers: Sepsis type: sepsis due to unspecified organism Sepsis acute organ dysfunction status: with acute organ dysfunction Severe sepsis acute organ dysfunction type: acute liver failure Hepatic coma status: with hepatic coma Severe sepsis shock status: unspecified Qualified Code(s): A41.9 - Sepsis, unspecified organism; R65.20 - Severe sepsis without septic shock; K72.01 - Acute and subacute hepatic failure with coma Code(s): A41.9 - Sepsis, unspecified organism Status: Acute Assessment and Plan: suspected infection causing sepsis secondary to acute respiratory failure, hepatic encephalopathy, elevated lactic acid, elevated LFTs, leukocytosis - resolving sepsis - blood pressures have been low, could be related to GI bleed. Patient has been placed on low-dose Levophed at 1 mcg/min - lactic acid has normalized - blood cultures negative x2 - urine culture is negat
--- NOTE | 2020-01-24 15:57 | PM.IMPN ---
Progress Note: A&P Assessment and Plan (1) Acute respiratory failure: Qualifiers: Respiratory failure complication: unspecified whether with hypoxia or hypercapnia Qualified Code(s): J96.00 - Acute respiratory failure, unspecified whether with hypoxia or hypercapnia Code(s): J96.00 - Acute respiratory failure, unspecified whether with hypoxia or hypercapnia Status: Acute Assessment and Plan: Likely secondary to a combination of hepatic encphalopathy, sepsis, and haldol that she recieved in the ER. At this point in time the patient could not protect her airway and was clearly in respiratory failure. The patient was emergently intubated and placed on mechanical ventilation. We will continue supportive care on the ventilator and wean off as tolerated. Check ABG in 1 hour. RT assess and treat. Spring Assembler Supervisor, Dr. Liu has been consulted. 01/24/20 15:57 patient is a 44-year-old female with history of alcohol abuse patient was brought to the emergency department by on 01/19 as patient was vomiting blood and diarrhea with blood patient was quite encephalopathy her ammonia level was 178 patient was seen by balling machine operator in ICU patient was quite unresponsive would not respond to painful stimili to protect her airways patient was emergently intubated, patient hemoglobin was low patient was transferred,GI was consulted patient has a history of duodenal ulcer was started on PPI, today patient was extubated just few minutes ago prior to my evaluation is still quite somnolent with denies any abdominal pain nausea or vomiting, complains of chills. (2) Sepsis: Qualifiers: Sepsis type: sepsis due to unspecified organism Sepsis acute organ dysfunction status: with acute organ dysfunction Severe sepsis acute organ dysfunction type: acute liver failure Hepatic coma status: with hepatic coma Severe sepsis shock status: unspecified Qualified Code(s): A41.9 - Sepsis, unspecified organism; R65.20 - Severe sepsis without septic shock; K72.01 - Acute and subacute hepatic failure with coma Code(s): A41.9 - Sepsis, unspecified organism Status: Acute Assessment and Plan: Monitor vital signs and urine output closely. Blood cultures x 2 now. Ceftriaxone IV. Check lactic acid w/ reflex. Monitor acid-base status closely. patient's sepsis is ruled out, patient had slightly mild elevated white count and lactic acid most likely secondary to stress from hypoxia and anemia no source of infection blood and urine culture sent most likely patient did not have sepsis (3) Hepatic encephalopathy: Code(s): K72.90 - Hepatic failure, unspecified without coma Status: Acute Assessment and Plan: We will initiate Lactulose via NG tube. Check ammonia in am. (4) Alcoholic cirrhosis: Qualifiers: Ascites presence: without ascites Qualified Code(s): K70.30 - Alcoholic cirrhosis of liver without ascites Code(s): K70.30 - Alcoholic cirrhosis of liver without ascites Status: Acute Assessment and Plan: Child-Hernandez Classification - Grade B - 9 points. Monitor LFTs. We will treat the patient prophylactially with ceftriaxone given she has an upper GI bleed and is septic. (5) Upper GI bleed: Code(s): K92.2 - Gastrointestinal hemorrhage, unspecified Status: Acute Assessment and Plan: Monitor H/H, transfuse prn, Continue Protonix IV and add Octreotide IV. GI, Dr. Bianchi has been consulted. (6) Open ankle wound: Qualifiers: Encounter type: initial encounter Laterality: right Qualified Code(s): S91.001A - Unspecified open wound, right ankle, initial encounter Code(s): S91.009A - Unspecified open wound, unspecified ankle, initial encounter Status: Acute Assessment and Plan: wound care. Subjective Date/time seen: 01/24/20 15:57 patient is a 44-year-old female with history of alcohol abuse patient was brought to the emergency d
[2020-01-24] MEDS: MORPHINE SULFATE 2 MG/ML INJ IV PUSH (17:47)
[2020-01-25] VITALS (43 sets, daily range): BP systolic 92–122; BP diastolic 41–75; PULSE 61–93; RESP 13–25; TEMP 36.1–36.8; O2SAT 87–97
[2020-01-25] MEDS: ONDANSETRON INJ 4 MG/2 ML VIAL (01:32)
[2020-01-25] MEDS: MORPHINE SULFATE 2 MG/ML INJ IV PUSH ×2 (01:49→16:38)
[2020-01-25] MEDS: NOREPINEPHRINE 8 MG/D5W 250 ML 8 MG/250 ML BAG 7.5 MG IV CONT (05:37)
[2020-01-25] MEDS: CENTRAL LINE FLUSH 10 ML IV PUSH ×3 (05:40→18:41)
[2020-01-25 05:59] LABS: Hematocrit 29.1 % (37.0-47.0); Hemoglobin 9.8 g/dL (12.0-15.0); Mean Corpuscular HGB Conc 33.7 g/dl (32-36); Mean Corpuscular Hemoglobin 30.8 pg (26-34); Mean Corpuscular Volume 91.5 fl (80-100); Mean Platelet Volume 10.7 fl (7.4-10.4); Platelet Count Result 182 k/mm3 (150-375); Red Blood Count 3.18 M/mm3 (4.2-5.4); Red Cell Distribution Width 16.3 % (11.5-14.5); White Blood Count 9.7 K/mm3 (4.5-10.0)
[2020-01-25 06:23] LABS: Alanine Aminotransferase 37 U/L (4-35); Albumin Level 2.1 g/dL (3.5-5.1); Alkaline Phosphatase 160 U/L (38-126); Anion Gap 1 mmol/L (8-16); Aspartate Amino Transferase 70 U/L (14-36); Blood Urea Nitrogen 5 mg/dL (7-17); Calcium 7.2 mg/dL (8.4-10.2); Carbon Dioxide 22 mmol/L (22-30); Chloride 115 mmol/L (98-107); Estimated CRCL calculation 72 ml/min; Estimated Glomerular Filt Rate > 60; Glucose 87 mg/dL (65-105); Magnesium 1.4 mg/dL (1.6-2.3); Phosphorus 3.4 mg/dL (2.5-4.5); Potassium 2.5 mmol/L (3.4-5.0); Sodium 138 mmol/L (137-145)
[2020-01-25] MEDS: DEXTROSE 5%/0.9% SOD CHL 1,000 ML 75 ML IV CONT (08:01)
--- NOTE | 2020-01-25 08:40 | WPDGIPROGNO ---
Progress Note: A&P Additional Plan Patient alert and talkative this morning. Now extubated. Anxious to eat. Physical exam reveals her to be alert. Lungs Reveal a few rhonchi. Heart without murmur. Abdomen bowel sounds present soft nontender no obvious organomegaly. Labs reveal hemoglobin 9.8, hematocrit 29, AST 70, ALT 37, bilirubin 1.0. Impression 1. Duodenal ulcer with nonbleeding gastric ulcers status post recent upper GI bleeding. Plan is to continue proton pump inhibitor therapy. Avoid nonsteroidal anti-inflammatory agents. Diet as tolerated. Hemoglobin will be monitored daily while hospitalized. 2. Respiratory failure. Patient now extubated. Plan to advance diet as tolerated. 3. Alcoholic liver disease. Patient with hepatic encephalopathy elevated ammonia on admission. Plan is to continue oral lactulose. Titrate dose to loose stools that are controllable. Subjective Date/time seen: 01/25/20 08:40 Objective Data Vital Signs Vital Signs: Vital Signs - 24 hr 01/24/20 10:00 01/24/20 11:00 01/24/20 12:00 Temperature 97.7 F 98.4 F Pulse Rate 48 L 63 54 L Respiratory Rate 15 22 H Blood Pressure 101/71 119/75 Pulse Oximetry 95 98 98 01/24/20 12:24 01/24/20 14:00 01/24/20 16:00 Temperature 98.5 F Pulse Rate 53 L 55 L 59 L Respiratory Rate 21 H 22 H Blood Pressure 159/109 H 97/54 L Pulse Oximetry 99 93 01/24/20 18:00 01/24/20 19:00 01/24/20 19:01 Temperature Pulse Rate 79 70 69 Respiratory Rate 24 H Blood Pressure 106/68 91/58 L Pulse Oximetry 92 96 93 01/24/20 19:15 01/24/20 19:30 01/24/20 19:31 Temperature Pulse Rate 69 68 68 Respiratory Rate Blood Pressure 94/58 L Pulse Oximetry 92 95 94 01/24/20 19:45 01/24/20 20:00 01/24/20 20:01 Temperature 98.3 F Pulse Rate 65 65 65 Respiratory Rate 17 Blood Pressure 94/62 L Pulse Oximetry 95 92 93 01/24/20 20:15 01/24/20 20:30 01/24/20 20:31 Temperature Pulse Rate 87 74 68 Respiratory Rate 18 21 H Blood Pressure 99/65 L Pulse Oximetry 87 L 92 91 08/07/20 20:45 01/24/20 21:00 01/24/20 21:01 Temperature Pulse Rate 72 78 76 Respiratory Rate 18 22 H 17 Blood Pressure 91/74 L Pulse Oximetry 94 93 94 01/24/20 21:15 01/24/20 21:30 01/24/20 21:31 Temperature Pulse Rate 72 68 66 Respiratory Rate 33 H 17 17 Blood Pressure 95/62 L Pulse Oximetry 94 97 97 01/24/20 21:45 01/24/20 22:00 01/24/20 22:01 Temperature Pulse Rate 63 64 67 Respiratory Rate 17 20 19 Blood Pressure 80/48 L Pulse Oximetry 96 94 94 01/24/20 22:03 01/24/20 22:05 01/24/20 22:15 Temperature Pulse Rate 63 63 70 Respiratory Rate 13 17 Blood Pressure 82/49 L 82/49 L Pulse Oximetry 94 94 01/24/20 22:26 01/24/20 22:30 01/24/20 22:31 Temperature Pulse Rate 72 73 74 Respiratory Rate 21 H 24 H 26 H Blood Pressure 94/57 L 90/55 L Pulse Oximetry 95 95 95 01/24/20 22:45 01/24/20 23:00 01/24/20 23:01 Temperature Pulse Rate 67 68 75 Respiratory Rate 19 13 21 H Blood Pressure 104/85 Pulse Oximetry 95 93 93 01/24/20 23:15 01/24/20 23:30 01/24/20 23:31 Temperature Pulse Rate 67 69 70 Respiratory Rate 24 H 20 18 Blood Pressure 105/69 Pulse Oximetry 94 96 96 01/24/20 23:45 01/25/20 00:00 01/25/20 00:01 Temperature Pulse Rate 74 66 76 Respiratory Rate 21 H 20 19 Blood Pressure 96/57 L Pulse Oximetry 95 94 93 01/25/20 00:15 01/25/20 00:30 01/25/20 00:31 Temperature Pulse Rate 66 73 73 Respiratory Rate 19 21 H 13 Blood Pressure 96/57 L 102/68 Pulse Oximetry 94 94 95 01/25/20 00:45 01/25/20 02:00 01/25/20 02:15 Temperature Pulse Rate 90 67 67 Respiratory Rate 22 H 14 16 Blood Pressure 113/67 Pulse Oximetry 97 92 91 01/25/20 02:30 01/25/20 02:31 01/25/20 02:45 Temperature Pulse Rate 72 67 67 Respiratory Rate 15 17 18 Blood Pressure 97/56 L Pulse Oximetry 91 91 92 01/25/20 03:00 01/25/20 03:01 01/25/20
[2020-01-25] MEDS: MAGNESIUM SULF 2 GM/WATER 50ML 2 GM/50 ML BAG IVPB (09:03)
[2020-01-25] MEDS: PANTOPRAZOLE SODIUM IV 40 MG VIAL IV PUSH ×2 (09:04→20:03)
[2020-01-25] MEDS: rifAXIMin 550 MG TABLET PO ×2 (09:04→20:08)
[2020-01-25] MEDS: THIAMINE HCL 200 MG/2 ML VIAL 100 MG IV PUSH (09:04)
[2020-01-25] MEDS: FOLIC ACID 1 MG/0.2 ML INJ IV PUSH (09:05)
[2020-01-25] MEDS: SILVERGEL (ELTA) 45 ML 1 APPLIC TOPICAL (09:05)
[2020-01-25] MEDS: LACTULOSE 20 GM/30 ML UDC 30 GM PO ×2 (09:06→20:07)
--- NOTE | 2020-01-25 11:51 | WPDINTPN ---
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 most likely secondary hepatic encephalopathy - successfully extubated on 01/24/2020 - incentive spirometry at bedside, up in chair - PT/OT has been ordered (2) Hepatic encephalopathy: Code(s): K72.90 - Hepatic failure, unspecified without coma Status: Acute Assessment and Plan: patient with hepatic encephalopathy, ammonia levels of 178 on admission - continue lactulose and rifaximin, ammonia level down to 29 on 01/24/2020 - decreased lactulose - GI following the patient (3) GI bleed: Qualifiers: GI bleed type/associated pathology: unspecified gastrointestinal hemorrhage type Qualified Code(s): K92.2 - Gastrointestinal hemorrhage, unspecified Code(s): K92.2 - Gastrointestinal hemorrhage, unspecified Status: Acute Assessment and Plan: acute GI bleed with hematemesis and bright red blood per rectum - EGD done on 01/21/2020 ; showed given also with seemed to be the source of recent GI bleeding. Also 2 non-bleeding gastric ulcers were identified. Patient does not have evidence of a esophageal varices. biopsies were taken from the stomach - octreotide was discontinued - continue Protonix IV q.12 hours - hemoglobin has been stable last 48 hours. - Will start clear liquids and advance as tolerated, okay with GI (4) Alcoholic cirrhosis: Qualifiers: Ascites presence: without ascites Qualified Code(s): K70.30 - Alcoholic cirrhosis of liver without ascites Code(s): K70.30 - Alcoholic cirrhosis of liver without ascites Status: Acute Assessment and Plan: alcoholic cirrhosis, patient started on ceftriaxone given sepsis picture, elevated lactic acid, which has normalized - continue monitoring LFTs, INR, renal function - continue thiamine and folic acid (5) Open ankle wound: Qualifiers: Encounter type: initial encounter Laterality: right Qualified Code(s): S91.001A - Unspecified open wound, right ankle, initial encounter Code(s): S91.009A - Unspecified open wound, unspecified ankle, initial encounter Status: Acute Assessment and Plan: wound care consulted - will follow the recommendation (6) Sepsis: Qualifiers: Sepsis type: sepsis due to unspecified organism Sepsis acute organ dysfunction status: with acute organ dysfunction Severe sepsis acute organ dysfunction type: acute liver failure Hepatic coma status: with hepatic coma Severe sepsis shock status: unspecified Qualified Code(s): A41.9 - Sepsis, unspecified organism; R65.20 - Severe sepsis without septic shock; K72.01 - Acute and subacute hepatic failure with coma Code(s): A41.9 - Sepsis, unspecified organism Status: Acute Assessment and Plan: RESOLVED: suspected infection causing sepsis secondary to acute respiratory failure, hepatic encephalopathy, elevated lactic acid, elevated LFTs, leukocytosis - resolving sepsis - blood pressures have been low, could be related to GI bleed. Patient has been placed on low-dose Levophed at 1 mcg/min - lactic acid has normalized - blood cultures negative x2 - urine culture is negative - stool wbc's not detected, Stool Shiga toxin is negative, stool Campylobacter, Salmonella/Shigella negative - continue ceftriaxone Additional Plan discussed with patient updated her with her condition and plan of care. She will be started on clear liquid diet and advanced as tolerated.
--- NOTE | 2020-01-25 12:01 | PC.NURSE ---
Pt received from ICU 11, oriented to room 343.
--- NOTE | 2020-01-25 12:09 | PC.NURSE ---
This patient, Sabi Tafoya, was transferred to [ ] on 01/25/20 at 1155. Personal belongings sent with patient. Report given to rn. Appropriate documentation sent with patient.
[2020-01-25 14:20] LABS: Anion Gap 6 mmol/L (8-16); Blood Urea Nitrogen 5 mg/dL (7-17); Calcium 7.2 mg/dL (8.4-10.2); Carbon Dioxide 19 mmol/L (22-30); Chloride 112 mmol/L (98-107); Estimated CRCL calculation 72 ml/min; Estimated Glomerular Filt Rate > 60; Glucose 142 mg/dL (65-105); Magnesium 1.9 mg/dL (1.6-2.3); Potassium 3.1 mmol/L (3.4-5.0); Sodium 137 mmol/L (137-145)
--- NOTE | 2020-01-25 14:37 | PM.IMPN ---
Progress Note: A&P Assessment and Plan (1) Acute respiratory failure: Qualifiers: Respiratory failure complication: unspecified whether with hypoxia or hypercapnia Qualified Code(s): J96.00 - Acute respiratory failure, unspecified whether with hypoxia or hypercapnia Code(s): J96.00 - Acute respiratory failure, unspecified whether with hypoxia or hypercapnia Status: Acute Assessment and Plan: Likely secondary to a combination of hepatic encphalopathy, sepsis, and haldol that she recieved in the ER. At this point in time the patient could not protect her airway and was clearly in respiratory failure. The patient was emergently intubated and placed on mechanical ventilation. We will continue supportive care on the ventilator and wean off as tolerated. Check ABG in 1 hour. RT assess and treat. Engineering And Operations Director, Dr. Liu has been consulted. 01/25/20 14:37 patient is a 44-year-old female with history of alcohol abuse patient was brought to the emergency department by on 01/19 as patient was vomiting blood and diarrhea with blood patient was quite encephalopathy her ammonia level was 178 patient was seen by facepiece line supervisor in ICU patient was quite unresponsive would not respond to painful stimili to protect her airways patient was emergently intubated, patient hemoglobin was low patient was transfused and GI was consulted patient has a history of duodenal ulcer was started on PPI, on 01/23 patient was extubated. today patient states feeling better denies any abdominal pain nausea or vomiting, denies any bleeding, hemoglobin is stable (2) Sepsis: Qualifiers: Hepatic coma status: with hepatic coma Sepsis acute organ dysfunction status: with acute organ dysfunction Sepsis type: sepsis due to unspecified organism Severe sepsis acute organ dysfunction type: acute liver failure Severe sepsis shock status: unspecified Qualified Code(s): A41.9 - Sepsis, unspecified organism; R65.20 - Severe sepsis without septic shock; K72.01 - Acute and subacute hepatic failure with coma Code(s): A41.9 - Sepsis, unspecified organism Status: Acute Assessment and Plan: Monitor vital signs and urine output closely. Blood cultures x 2 now. Ceftriaxone IV. Check lactic acid w/ reflex. Monitor acid-base status closely. patient's sepsis is ruled out, patient had slightly mild elevated white count and lactic acid most likely secondary to stress from hypoxia and anemia no source of infection blood and urine culture sent most likely patient did not have sepsis (3) Hepatic encephalopathy: Code(s): K72.90 - Hepatic failure, unspecified without coma Status: Acute Assessment and Plan: We will initiate Lactulose via NG tube. Check ammonia in am. (4) Alcoholic cirrhosis: Qualifiers: Ascites presence: without ascites Qualified Code(s): K70.30 - Alcoholic cirrhosis of liver without ascites Code(s): K70.30 - Alcoholic cirrhosis of liver without ascites Status: Acute Assessment and Plan: Child-Hernandez Classification - Grade B - 9 points. Monitor LFTs. We will treat the patient prophylactially with ceftriaxone given she has an upper GI bleed and is septic. (5) Upper GI bleed: Code(s): K92.2 - Gastrointestinal hemorrhage, unspecified Status: Acute Assessment and Plan: Monitor H/H, transfuse prn, Continue Protonix IV and add Octreotide IV. GI, Dr. Bianchi has been consulted. (6) Open ankle wound: Qualifiers: Encounter type: initial encounter Laterality: right Qualified Code(s): S91.001A - Unspecified open wound, right ankle, initial encounter Code(s): S91.009A - Unspecified open wound, unspecified ankle, initial encounter Status: Acute Assessment and Plan: wound care. Subjective Date/time seen: 01/25/20 14:37 patient is a 44-year-old female with history of alcohol abuse patient was brought to the emergency department by
[2020-01-25] MEDS: chlordiazePOXIDE 25 MG CAPSULE PO (19:24)
[2020-01-26] VITALS (12 sets, daily range): BP systolic 96–139; BP diastolic 59–84; PULSE 72–96; RESP 16–20; TEMP 36.1–37; O2SAT 91–95
[2020-01-26] MEDS: DEXTROSE 5%/0.9% SOD CHL 1,000 ML 75 ML IV CONT ×2 (01:13→15:26)
[2020-01-26] MEDS: chlordiazePOXIDE 25 MG CAPSULE PO ×4 (01:15→17:22)
[2020-01-26] MEDS: MORPHINE SULFATE 2 MG/ML INJ IV PUSH ×2 (03:26→22:36)
[2020-01-26 04:12] LABS: Hematocrit 29.3 % (37.0-47.0); Hemoglobin 9.7 g/dL (12.0-15.0); Mean Corpuscular HGB Conc 33.1 g/dl (32-36); Mean Corpuscular Hemoglobin 29.9 pg (26-34); Mean Corpuscular Volume 90.4 fl (80-100); Mean Platelet Volume 10.4 fl (7.4-10.4); Platelet Count Result 180 k/mm3 (150-375); Red Blood Count 3.24 M/mm3 (4.2-5.4); White Blood Count 9.2 K/mm3 (4.5-10.0)
[2020-01-26 04:33] LABS: Alanine Aminotransferase 38 U/L (4-35); Albumin Level 2.1 g/dL (3.5-5.1); Alkaline Phosphatase 167 U/L (38-126); Anion Gap 4 mmol/L (8-16); Aspartate Amino Transferase 65 U/L (14-36); Bilirubin,Total 0.6 mg/dL (0.2-1.3); Blood Urea Nitrogen 4 mg/dL (7-17); Calcium 7.1 mg/dL (8.4-10.2); Carbon Dioxide 21 mmol/L (22-30); Chloride 113 mmol/L (98-107); Estimated CRCL calculation 64 ml/min; Estimated Glomerular Filt Rate > 60; Glucose 74 mg/dL (65-105); Magnesium 1.7 mg/dL (1.6-2.3); Phosphorus 2.9 mg/dL (2.5-4.5); Potassium 2.8 mmol/L (3.4-5.0); Sodium 138 mmol/L (137-145)
[2020-01-26] MEDS: POTASSIUM CHLORIDE 20 MEQ TABLET 60 MEQ PO (04:49)
--- NOTE | 2020-01-26 08:40 | WPDGIPROGNO ---
Progress Note: A&P Additional Plan Patient more alert and comfortable this morning. Tolerating diet with no difficulties. Physical exam reveals her to be afebrile. Vital signs stable. HEENT exam unremarkable. Lungs are clear. Heart without murmur. Abdomen bowel sounds present soft left lower quadrant ventral hernia identified. Labs reveal hemoglobin 9.7, hematocrit 29, this appears stable at this time. Total bilirubin 0.6, AST 65 ALT 38, alk-phos 167, ammonia 29 now normal. Impression 1. Duodenal ulcer along with gastric ulcer. This is status post recent upper GI bleeding. Plan is to avoid nonsteroidal anti-inflammatory agents. Avoid alcohol. Per anticipate follow-up EGD in 2 months. 2. Alcoholic liver disease. LFTs gradually improving. She has significant alcohol dysfunction. Admitted with hepatic encephalopathy. Alcohol rehab strongly encourage. 3. Hepatic encephalopathy. Clinically improving. Ammonia level normalized. Plan is to continue lactulose orally and titrate to loose stools. 4. Ventral hernia. Asymptomatic observation at this time. Subjective Date/time seen: 01/26/20 08:40 Objective Data Vital Signs Vital Signs: Vital Signs - 24 hr 01/25/20 10:00 01/25/20 10:54 01/25/20 10:57 Temperature Pulse Rate 74 74 74 Pulse Rate [Right Radial] Respiratory Rate Blood Pressure Pulse Oximetry 01/25/20 12:00 01/25/20 16:00 01/25/20 20:00 Temperature 97.0 F L 97.3 F L Pulse Rate 70 72 83 Pulse Rate [Right Radial] Respiratory Rate 22 H 18 Blood Pressure 122/75 119/72 Pulse Oximetry 96 97 01/25/20 20:20 01/25/20 21:47 01/26/20 00:00 Temperature 98.3 F Pulse Rate 87 93 Pulse Rate [Right Radial] 83 Respiratory Rate 18 Blood Pressure 100/64 100/64 Pulse Oximetry 92 01/26/20 01:19 01/26/20 01:40 01/26/20 04:00 Temperature 98.4 F Pulse Rate 93 72 Pulse Rate [Right Radial] 93 79 Respiratory Rate 18 Blood Pressure 101/59 L 101/59 L 96/63 L Pulse Oximetry 93 01/26/20 06:22 01/26/20 07:31 Temperature 97.5 F L Pulse Rate 73 Pulse Rate [Right Radial] Respiratory Rate 18 Blood Pressure Pulse Oximetry 92 91 Intake/Output Intake/Output: Intake & Output 01/23/20 01/24/20 01/25/20 01/26/20 23:59 23:59 23:59 23:59 Intake Total 4110.1 2022 3189.9 845 Output Total 1800 2450 1700 575 Balance 2310.1 -428 1489.9 270 Meds/Results Medications: Active Medications Generic Name Dose Route Start Last Admin Trade Name Freq PRN Reason Stop Dose Admin Chlordiazepoxide HCl 25 mg 01/25/20 18:55 01/26/20 05:28 Librium Po PO 25 mg Q6HR SHAYY Administration Folic Acid 1 mg 01/24/20 09:00 01/25/20 09:05 Folic Acid Inj IV PUSH 1 mg QAM SHAYY Administration Dextrose/Sodium Chloride 1,000 mls @ 75 mls/hr 01/21/20 01:10 01/26/20 05:55 Dextrose 5% Sodium Chloride 0.9% IV CONT 75 mls/hr .[id number] SHAYY Infusion Ceftriaxone Sodium/Dextrose 1 gm in 50 mls @ 100 mls/hr 01/21/20 03:45 01/26/20 05:55 Rocephin 1 Gm/D5w 50 Ml IVPB Infused DAILY@0600 SHAYY Infusion Norepinephrine Bitartrate 8 mg in 250 mls @ 0 mls/hr 01/23/20 00:35 01/25/20 08:01 Levophed 8 Mg/D5w 250 Ml IV CONT 0 mcg/min .Q0M SHAYY 0 mls/hr Titration Protocol 0 MCG/MIN Lactulose 30 gm 01/24/20 21:00 01/25/20 20:07 Lactulose PO 30 gm Q12HR SHAYY Administration Magnesium Oxide 400 mg 01/26/20 09:00 Mag-Ox PO QAM SHAYY Morphine Sulfate 2 mg 01/24/20 17:04 01/26/20 03:26 Morphine Sulfate Inj IV PUSH 2 mg Q4H PRN Administration Pain Rated 7-10 Multi-Ingred Cream/Lotion/Oil/Oint 1 applic 01/21/20 09:00 01/25/20 20:08 Lubrifresh Pm Eye Ointment EACH EYE 1 applic Q12HR SHAYY Administration Ondansetron HCl 4 mg 01/25/20 01:24 Zofran Inj IV PUSH Q4H PRN Nausea And Vomiting Pantoprazole Sodium 40 mg 01/22/20 21:00 01/25/20 20:03 Protonix Iv IV PUSH 40 m
[2020-01-26] MEDS: LACTULOSE 20 GM/30 ML UDC 30 GM PO ×2 (09:21→22:34)
[2020-01-26] MEDS: rifAXIMin 550 MG TABLET PO ×2 (09:23→22:36)
[2020-01-26] MEDS: THIAMINE HCL 200 MG/2 ML VIAL 100 MG IV PUSH (09:23)
[2020-01-26] MEDS: PANTOPRAZOLE SODIUM IV 40 MG VIAL IV PUSH ×2 (09:23→22:35)
[2020-01-26] MEDS: FOLIC ACID 1 MG/0.2 ML INJ IV PUSH (09:28)
[2020-01-26] MEDS: SILVERGEL (ELTA) 45 ML 1 APPLIC TOPICAL (09:28)
[2020-01-26] MEDS: MAGNESIUM OXIDE 400 MG TABLET PO (09:36)
--- NOTE | 2020-01-26 10:04 | PCPTNOTE ---
Attempted to see patient this AM. Patient refused to participate in PT. Pt. reports not today, hopefully tomorrow.
--- NOTE | 2020-01-26 11:06 | PCOTNOTE ---
Patient not seen for OT this date. Patient declined, hopefully tomorrow. Will continue plan of care tomorrow, 01/27/2020.
--- NOTE | 2020-01-26 12:53 | PM.IMPN ---
Progress Note: A&P Assessment and Plan (1) Acute respiratory failure: Qualifiers: Respiratory failure complication: unspecified whether with hypoxia or hypercapnia Qualified Code(s): J96.00 - Acute respiratory failure, unspecified whether with hypoxia or hypercapnia Code(s): J96.00 - Acute respiratory failure, unspecified whether with hypoxia or hypercapnia Status: Acute Assessment and Plan: Likely secondary to a combination of hepatic encphalopathy, sepsis, and haldol that she recieved in the ER. At this point in time the patient could not protect her airway and was clearly in respiratory failure. The patient was emergently intubated and placed on mechanical ventilation. We will continue supportive care on the ventilator and wean off as tolerated. Check ABG in 1 hour. RT assess and treat. Furnace Erector, Dr. Liu has been consulted. 01/26/20 12:53 patient is a 44-year-old female with history of alcohol abuse patient was brought to the emergency department by on 01/19 as patient was vomiting blood and diarrhea with blood patient was quite encephalopathy her ammonia level was 178 patient was seen by box toe maker in ICU patient was quite unresponsive would not respond to painful stimili to protect her airways patient was emergently intubated, patient hemoglobin was low patient was transfused and GI was consulted patient has a history of duodenal ulcer was started on PPI, on 01/23 patient was extubated. today patient's ammonia level back to normal will continue lactulose as tolerated, patient states feeling better denies any abdominal pain nausea or vomiting, patient has hypokalemia Sineff magnesium is secondary to alcohol abuse, denies any bleeding, hemoglobin is stable, will monitor 1 more day and discharge patient home tomorrow. (2) Sepsis: Qualifiers: Sepsis type: sepsis due to unspecified organism Sepsis acute organ dysfunction status: with acute organ dysfunction Severe sepsis acute organ dysfunction type: acute liver failure Hepatic coma status: with hepatic coma Severe sepsis shock status: unspecified Qualified Code(s): A41.9 - Sepsis, unspecified organism; R65.20 - Severe sepsis without septic shock; K72.01 - Acute and subacute hepatic failure with coma Code(s): A41.9 - Sepsis, unspecified organism Status: Acute Assessment and Plan: Monitor vital signs and urine output closely. Blood cultures x 2 now. Ceftriaxone IV. Check lactic acid w/ reflex. Monitor acid-base status closely. patient's sepsis is ruled out, patient had slightly mild elevated white count and lactic acid most likely secondary to stress from hypoxia and anemia no source of infection blood and urine culture sent most likely patient did not have sepsis (3) Hepatic encephalopathy: Code(s): K72.90 - Hepatic failure, unspecified without coma Status: Acute Assessment and Plan: We will initiate Lactulose via NG tube. Check ammonia in am. (4) Alcoholic cirrhosis: Qualifiers: Ascites presence: without ascites Qualified Code(s): K70.30 - Alcoholic cirrhosis of liver without ascites Code(s): K70.30 - Alcoholic cirrhosis of liver without ascites Status: Acute Assessment and Plan: Child-Hernandez Classification - Grade B - 9 points. Monitor LFTs. We will treat the patient prophylactially with ceftriaxone given she has an upper GI bleed and is septic. (5) Upper GI bleed: Code(s): K92.2 - Gastrointestinal hemorrhage, unspecified Status: Acute Assessment and Plan: Monitor H/H, transfuse prn, Continue Protonix IV and add Octreotide IV. GI, Dr. Bianchi has been consulted. (6) Open ankle wound: Qualifiers: Encounter type: initial encounter Laterality: right Qualified Code(s): S91.001A - Unspecified open wound, right ankle, initial encounter Code(s): S91.009A - Unspecified open wound, unspecified ankle, initial encounter Sta
[2020-01-26 13:47] LABS: Anion Gap 4 mmol/L (8-16); Blood Urea Nitrogen 3 mg/dL (7-17); Calcium 7.1 mg/dL (8.4-10.2); Carbon Dioxide 21 mmol/L (22-30); Chloride 111 mmol/L (98-107); Estimated CRCL calculation 74 ml/min; Estimated Glomerular Filt Rate > 60; Glucose 89 mg/dL (65-105); Magnesium 1.6 mg/dL (1.6-2.3); Potassium 3.2 mmol/L (3.4-5.0); Sodium 136 mmol/L (137-145)
--- NOTE | 2020-01-26 14:51 | PCPTNOTE ---
Pt. declined PT this am. Pt. reported she was not going to do therapy today but hopefully she would feel like it tomorrow. Will attempt to see patient tomorrow.
[2020-01-26] MEDS: CENTRAL LINE FLUSH 10 ML IV PUSH ×3 (15:26→22:00)
[2020-01-26] MEDS: POTASSIUM CHLORIDE 20 MEQ TABLET 40 MEQ PO (17:22)
[2020-01-26] MEDS: ONDANSETRON INJ 4 MG/2 ML VIAL IV PUSH (22:36)
[2020-01-27] VITALS: BP 139/84; PULSE 90; PULSE 94
[2020-01-27 04:00] VITALS: BP 139/84; PULSE 85; PULSE 90
[2020-01-27] MEDS: DEXTROSE 5%/0.9% SOD CHL 1,000 ML 75 ML IV CONT (05:07)
[2020-01-27] MEDS: chlordiazePOXIDE 25 MG CAPSULE PO ×3 (05:09→11:31)
[2020-01-27] MEDS: MORPHINE SULFATE 2 MG/ML INJ IV PUSH (05:09)
[2020-01-27] MEDS: CENTRAL LINE FLUSH 10 ML IV PUSH (05:10)
[2020-01-27 05:15] VITALS: BP 112/69; PULSE 86; RESP 16; TEMP 36.8; O2SAT 93
[2020-01-27 05:54] LABS: Hematocrit 31.1 % (37.0-47.0); Hemoglobin 10.3 g/dL (12.0-15.0); Mean Corpuscular HGB Conc 33.1 g/dl (32-36); Mean Corpuscular Hemoglobin 30.1 pg (26-34); Mean Corpuscular Volume 90.9 fl (80-100); Mean Platelet Volume 10.7 fl (7.4-10.4); Platelet Count Result 213 k/mm3 (150-375); Red Blood Count 3.42 M/mm3 (4.2-5.4); Red Cell Distribution Width 16.1 % (11.5-14.5); White Blood Count 11.2 K/mm3 (4.5-10.0)
[2020-01-27 06:17] LABS: Magnesium 1.6 mg/dL (1.6-2.3)
[2020-01-27 08:00] VITALS: PULSE 84
[2020-01-27] MEDS: LACTULOSE 20 GM/30 ML UDC 30 GM PO (09:08)
[2020-01-27] MEDS: FOLIC ACID 1 MG/0.2 ML INJ IV PUSH (09:08)
[2020-01-27] MEDS: PANTOPRAZOLE SODIUM IV 40 MG VIAL IV PUSH (09:08)
[2020-01-27] MEDS: THIAMINE HCL 200 MG/2 ML VIAL 100 MG IV PUSH (09:09)
[2020-01-27] MEDS: SILVERGEL (ELTA) 45 ML 1 APPLIC TOPICAL (09:09)
[2020-01-27] MEDS: rifAXIMin 550 MG TABLET PO (09:09)
[2020-01-27] MEDS: MAGNESIUM OXIDE 400 MG TABLET PO (09:09)
[2020-01-27 10:48] LABS: Ammonia 12 umol/L (9-30)
[2020-01-27] MEDS: NEOMYCIN/POLYMYXIN/BACITRACIN OINTMENT PACKET 1 PACKET (10:50)
[2020-01-27 10:51] LABS: Alanine Aminotransferase 36 U/L (4-35); Albumin Level 2.3 g/dL (3.5-5.1); Alkaline Phosphatase 166 U/L (38-126); Anion Gap 3 mmol/L (8-16); Aspartate Amino Transferase 53 U/L (14-36); Bilirubin,Total 0.8 mg/dL (0.2-1.3); Calcium 7.3 mg/dL (8.4-10.2); Carbon Dioxide 22 mmol/L (22-30); Chloride 111 mmol/L (98-107); Estimated CRCL calculation 83 ml/min; Estimated Glomerular Filt Rate > 60; Glucose 83 mg/dL (65-105); Potassium 3.1 mmol/L (3.4-5.0); Sodium 136 mmol/L (137-145)
--- NOTE | 2020-01-27 10:55 | WPDGIPROGNO ---
Progress Note: A&P Additional Plan Patient alert and comfortable this morning. No obvious evidence for active bleeding. Tolerating diet. She denies abdominal pain. Physical exam reveals her to be alert and oriented. HEENT exam she is anicteric. Lungs are clear. Heart without murmur. Abdomen bowel sounds are present soft nontender. Total bilirubin 0.8, AST 53, ALT 36, alk-phos 166. Hemoglobin 10.3, hematocrit 31. Impression 1. Duodenal ulcer along with gastric ulcer. Status post recent bleeding. Plan to avoid nonsteroidal anti-inflammatory agents. Continue proton pump inhibitor therapy. Follow-up EGD advised in 2 months. 2. Alcoholic liver disease. 3. Hepatic encephalopathy. Improved on lactulose. Plan to continue lactulose and maybe Xifaxin after discharge. Subjective Date/time seen: 01/27/20 10:55 Objective Data Vital Signs Vital Signs: Vital Signs - 24 hr 01/26/20 12:00 01/26/20 16:00 01/26/20 20:00 Temperature 97.0 F L Pulse Rate 89 89 85 Pulse Rate [Right Radial] 90 90 90 Respiratory Rate 18 20 Blood Pressure 102/84 108/62 139/84 Pulse Oximetry 92 95 01/26/20 20:20 01/26/20 23:00 01/27/20 00:00 Temperature 98.6 F Pulse Rate 94 94 94 Pulse Rate [Right Radial] 90 Respiratory Rate 16 16 Blood Pressure 139/84 139/84 Pulse Oximetry 94 94 01/27/20 04:00 01/27/20 05:15 01/27/20 08:00 Temperature 98.3 F Pulse Rate 85 86 84 Pulse Rate [Right Radial] 90 Respiratory Rate 16 Blood Pressure 139/84 112/69 Pulse Oximetry 93 Intake/Output Intake/Output: Intake & Output 01/24/20 01/25/20 01/26/20 01/27/20 23:59 23:59 23:59 23:59 Intake Total 2021 3189.9 2090 2180 Output Total 2450 1700 575 850 Balance -428 1489.9 1515 1330 Meds/Results Medications: Active Medications Generic Name Dose Route Start Last Admin Trade Name Freq PRN Reason Stop Dose Admin Chlordiazepoxide HCl 25 mg 01/25/20 18:55 01/27/20 05:09 Librium Po PO 25 mg Q6HR SHAYY Administration Folic Acid 1 mg 01/24/20 09:00 01/27/20 09:08 Folic Acid Inj IV PUSH 1 mg QAM SHAYY Administration Dextrose/Sodium Chloride 1,000 mls @ 75 mls/hr 01/21/20 01:10 01/27/20 05:07 Dextrose 5% Sodium Chloride 0.9% IV CONT 75 mls/hr .[id number] SHAYY Administration Ceftriaxone Sodium/Dextrose 1 gm in 50 mls @ 100 mls/hr 01/21/20 03:45 01/27/20 05:45 Rocephin 1 Gm/D5w 50 Ml IVPB Infused DAILY@0600 SHAYY Infusion Norepinephrine Bitartrate 8 mg in 250 mls @ 0 mls/hr 01/23/20 00:35 01/25/20 08:01 Levophed 8 Mg/D5w 250 Ml IV CONT 0 mcg/min .Q0M SHAYY 0 mls/hr Titration Protocol 0 MCG/MIN Lactulose 30 gm 01/24/20 21:00 01/27/20 09:08 Lactulose PO 30 gm Q12HR SHAYY Administration Magnesium Oxide 400 mg 01/26/20 09:00 01/27/20 09:09 Mag-Ox PO 400 mg QAM SHAYY Administration Morphine Sulfate 2 mg 01/24/20 17:04 01/27/20 05:09 Morphine Sulfate Inj IV PUSH 2 mg Q4H PRN Administration Pain Rated 7-10 Multi-Ingred Cream/Lotion/Oil/Oint 1 applic 01/21/20 09:00 01/27/20 09:09 Lubrifresh Pm Eye Ointment EACH EYE 1 applic Q12HR SHAYY Administration Ondansetron HCl 4 mg 01/25/20 01:24 01/26/20 22:36 Zofran Inj IV PUSH 4 mg Q4H PRN Administration Nausea And Vomiting Pantoprazole Sodium 40 mg 01/22/20 21:00 01/27/20 09:08 Protonix Iv IV PUSH 40 mg Q12HR SHAYY Administration Rifaximin 550 mg 01/21/20 12:00 01/27/20 09:09 Xifaxan PO 550 mg Q12HR SHAYY Administration Silver Nitrate 1 applic 01/21/20 09:00 01/27/20 09:09 Silvergel TOPICAL 1 applic DAILY SHAYY Administration Sodium Chloride 10 ml 01/21/20 06:00 01/27/20 05:10 Central Line Flush IV PUSH 10 ml Q8HR SHAYY Administration Sodium Chloride 10 ml 01/21/20 18:00 01/26/20 17:22 Central Line Flush IV PUSH 10 ml DAILY@1800 SHAYY Administration Sodium Chloride 20 ml 01/21/20 05:44 Central Line Flush
[2020-01-27 11:15] LABS: Blood Urea Nitrogen < 2 mg/dL (7-17)
--- NOTE | 2020-01-27 11:17 | PM.DS ---
DS: Admitting Diagnosis Admitting Diagnosis Admitting Diagnosis: Sepsis, unspecified organism DS: Discharge Diagnosis Discharge Diagnosis (1) Acute respiratory failure: Qualifiers: Respiratory failure complication: unspecified whether with hypoxia or hypercapnia Qualified Code(s): J96.00 - Acute respiratory failure, unspecified whether with hypoxia or hypercapnia Code(s): J96.00 - Acute respiratory failure, unspecified whether with hypoxia or hypercapnia Status: Acute Assessment and Plan: Likely secondary to a combination of hepatic encphalopathy, sepsis, and haldol that she recieved in the ER. At this point in time the patient could not protect her airway and was clearly in respiratory failure. The patient was emergently intubated and placed on mechanical ventilation. We will continue supportive care on the ventilator and wean off as tolerated. Check ABG in 1 hour. RT assess and treat. Medical Management Trainer, Dr. Liu has been consulted. patient is a 44-year-old female with history of alcohol abuse patient was brought to the emergency department by on 01/19 as patient was vomiting blood and diarrhea with blood patient was quite encephalopathy her ammonia level was 178 patient was seen by technology consultant in ICU patient was quite unresponsive would not respond to painful stimili to protect her airways patient was emergently intubated, patient hemoglobin was low patient was transfused and GI was consulted patient has a history of duodenal ulcer was started on PPI, on 01/23 patient was extubated. today patient's ammonia level back to normal will continue lactulose as tolerated, patient states feeling better denies any abdominal pain nausea or vomiting, patient has hypokalemia Sineff magnesium is secondary to alcohol abuse, denies any bleeding, hemoglobin is stable, will monitor 1 more day and discharge patient home tomorrow. (2) Sepsis: Qualifiers: Sepsis type: sepsis due to unspecified organism Sepsis acute organ dysfunction status: with acute organ dysfunction Severe sepsis acute organ dysfunction type: acute liver failure Hepatic coma status: with hepatic coma Severe sepsis shock status: unspecified Qualified Code(s): A41.9 - Sepsis, unspecified organism; R65.20 - Severe sepsis without septic shock; K72.01 - Acute and subacute hepatic failure with coma Code(s): A41.9 - Sepsis, unspecified organism Status: Acute Assessment and Plan: Monitor vital signs and urine output closely. Blood cultures x 2 now. Ceftriaxone IV. Check lactic acid w/ reflex. Monitor acid-base status closely. patient's sepsis is ruled out, patient had slightly mild elevated white count and lactic acid most likely secondary to stress from hypoxia and anemia no source of infection blood and urine culture sent most likely patient did not have sepsis (3) Hepatic encephalopathy: Code(s): K72.90 - Hepatic failure, unspecified without coma Status: Acute Assessment and Plan: We will initiate Lactulose via NG tube. Check ammonia in am. (4) Alcoholic cirrhosis: Qualifiers: Ascites presence: without ascites Qualified Code(s): K70.30 - Alcoholic cirrhosis of liver without ascites Code(s): K70.30 - Alcoholic cirrhosis of liver without ascites Status: Acute Assessment and Plan: Child-Hernandez Classification - Grade B - 9 points. Monitor LFTs. We will treat the patient prophylactially with ceftriaxone given she has an upper GI bleed and is septic. (5) Upper GI bleed: Code(s): K92.2 - Gastrointestinal hemorrhage, unspecified Status: Acute Assessment and Plan: Monitor H/H, transfuse prn, Continue Protonix IV and add Octreotide IV. GI, Dr. Bianchi has been consulted. (6) Open ankle wound: Qualifiers: Encounter type: initial encounter Laterality: right Qualified Code(s): S91.001A - Unspecified open wound, right ankle, initial encounter C
[2020-01-27] MEDS: POTASSIUM CHLORIDE 20 MEQ TABLET 40 MEQ PO (11:29)
== END 2020-01-27 11:55 | disposition home or self-care (01) | DRG 441 ==
LOC: ANHED 01-21 01:10 → ANHICU 01-21 01:59 → ANH3MED 01-25 21:51 → ANHICU 01-29 09:00
PROVIDERS: Internal Medicine; Internal Medicine Gastroenterology; Admitting Provider Family Medicine; Emergency Provider Emergency Medicine; PCP Family Medicine; Visit Provider Family Medicine
PROC: 0DJ08ZZ Inspection of Upper Intestinal Tract, Via Natural or Artificial Opening Endoscopic (ICD-10-PCS; CPT 43235; principal; 2020-01-21 09:30)
DX: K72.00 Acute and subacute hepatic failure without coma (principal); K26.0 Acute duodenal ulcer with hemorrhage; J96.01 Acute respiratory failure with hypoxia; G92 Toxic encephalopathy; K70.30 Alcoholic cirrhosis of liver without ascites; K70.10 Alcoholic hepatitis without ascites; F10.10 Alcohol abuse, uncomplicated; S91.001A Unspecified open wound, right ankle, initial encounter; K43.9 Ventral hernia without obstruction or gangrene; E87.6 Hypokalemia; Z87.891 Personal history of nicotine dependence; K25.9 Gastric ulcer, unspecified as acute or chronic, without hemorrhage or perforation; X58.XXXA Exposure to other specified factors, initial encounter
CPT/HCPCS: 31500; 36415; 36430; 36600; 70450; 71045; 72125; 74177; 80048; 80053; 82140; 82248; 82375; 82805; 83050; 83605; 83690; 83735; 84100; 85014; 85018; 85025; 85027; 85610; 86850; 86900; 86901; 86923; 87040; 87045; 87046; 87081; 87086; 87427; 89055; 94002; 94003; 96365; 96366; 96372; 97161; 97165; 99285; A9270; C1751; C9113; J0696; J1630; J1940; J2060; J2250; J2270; J2354; J2405; J3010; J3411; J3475; J3480; J7030; J7042; J7050; J7060; J7121; P9016; P9017; Q9967

== ENCOUNTER 2020-05-21 15:28 | Outpatient (CLI) | payer MEDICARE, MEDICAID, SELFPAY ==
--- NOTE | ~2020-05-21 | MR_ITS ---
EXAMINATION: MR cervical spine wo con DATE: 05/21/2020 16:39 INDICATION: Cervical radiculopathy. TECHNIQUE: Magnetic resonance imaging (MRI) of the cervical spine was performed without intravenous c ontrast. Sequences included sagittal T2-weighted FSE, sagittal STIR FSE, sagittal T1-weighted FSE, ax ial MERGE, and axial T2-weighted FSE. COMPARISON: CT cervical spine 01/20/20, chest 2 views 06/06/2018 FINDINGS: There is focal kyphosis at C6-C7. There is 6 degrees levocurvature of cervicothoracic spine . There are changes of anterior fusion procedure at C3-C4 with healed interbody bone graft. There is 5 mm anterolisthesis of C6 on C7. There are changes of anterior fusion procedure from C5 to T1 with C 6 and C7 corpectomies, interbody device between C5 and T1, and anterior plate and screws. The anterio r plate curves inferior to the T1 vertebral body, and the lowest screws enter the inferior endplate o f T1 vertebral body from inferior. There is artifact from instrumentation from posterior fusion proce dure from C2 to at least the mid thoracic spine. There is increased T2-weighted signal intensity in t he spinal cord at T1, but artifacts decrease specificity. The following disc levels are specifically discussed: C2-C3: The disc does not extend beyond the endplate margin. There is no uncovertebral joint osteoarth ritis. There is no facet joint hypertrophy. There is no neural foraminal stenosis. There is no centra l canal stenosis. C3-C4: There is no uncovertebral joint osteoarthritis. There is no facet joint hypertrophy. There is no neural foraminal stenosis. There is no central canal stenosis. C4-C5: The disc does not extend beyond the endplate margin. There is no uncovertebral joint osteoarth ritis. There is no facet joint hypertrophy. There is no neural foraminal stenosis. There is no centra l canal stenosis. C5-C6: There is no uncovertebral joint hypertrophy. There is no facet joint hypertrophy. There is no neural foraminal stenosis. There is no central canal stenosis. C6-C7: There is no uncovertebral joint hypertrophy. There is mild right facet joint hypertrophy. Ther e is no neural foraminal stenosis. There is no central canal stenosis. C7-T1: There is no uncovertebral joint hypertrophy. There is no facet joint hypertrophy. There is sev ere bilateral neural foraminal stenosis. There is moderate central canal stenosis. IMPRESSION: 1. Anterior fusion procedure from C5 to T1. Chronic abnormal alignment at C7-T1 with moderate central canal stenosis and severe bilateral neural foraminal stenosis. 2. Myelomalacia at C7-T1. Artifacts in this area decrease specificity. 3. Healed anterior fusion procedure at C3-C4. 4. Posterior fusion procedure from C2 to mid thoracic spine. Reviewed, dictated and finalized at location A. TOLOGIST IMPRESSION: 1. Anterior fusion procedure from C5 to T1. Chronic abnormal alignment at C7-T1 with moderate central canal stenosis and severe bilateral neural foraminal francisco nosis. 2. Myelomalacia at C7-T1. Artifacts in this area decrease specificity. 3. Healed anterior fusion procedure at C3-C4. 4. Posterior fusion procedure from C2 to mid thoracic spine.
--- NOTE | ~2020-05-21 | XR_ITS ---
EXAMINATION:XR cervical spine min 6V DATE: 05/21/2020 17:00 INDICATION: Cervical radiculopathy radiating down the arms. TECHNIQUE: AP, lateral, lateral flexion, lateral extension, lateral swimmers and odontoid views of th e cervical spine are provided. COMPARISON: Cervical spine MRI dated 05/21/[address] dated 01/20/2020 FINDINGS: Odontoid is intact. Normal atlantoaxial interval. Straightening of the normal cervical lordosis. 12 degree cervicothoracic levocurvature. Cervicothoracic posterior spinal fusion with laminectomies exte nding from C2 through T6. There are bilateral vertical rods with lateral mass screws at C2-C5 extendi ng into the thoracic spine with bilateral pedicle screws at T3-T6. Anterior fusion at C3-C4. Addition al anterior spinal fusion extending from C5 through T1 with anterior plate and screw fixation with pa ired screws at C5 and T1. C6 and C7 corpectomies with interbody device. Mild disc height loss at C2-C 3 and T3-T4 through T5-T6. No motion across the fused segments from C2 through T6 with attempted flex ion or extension. Prevertebral soft tissues are normal. IMPRESSION: 1. Instrumented posterior spinal fusion from C2 through T6, anterior fusion at C3-C4 and instrumented anterior fusion from C5-T1 which appears unchanged since CT dated 01/21/2020 and with no motion on fle xion or extension. Reviewed, dictated and finalized at location A. SPRING UPHOLSTERER IMPRESSION: 1. Instrumented posterior spinal fusion from C2 through T6, anterior fusion at C3-C4 and instrumented anterior fusion from C5-T1 which appears unchanged since CT dated 01/21/2020 and with no motion on flexion or extension.
== END 2020-05-21 15:29 | disposition home or self-care (01) ==
LOC: ANHIMG 15:42
PROVIDERS: PCP Family Medicine; Visit Provider Nurse Practitioner Adult Health
DX: M54.12 Radiculopathy, cervical region (principal); Z98.1 Arthrodesis status
CPT/HCPCS: 72050; 72052; 72141

== ENCOUNTER 2020-07-05 04:38 | Inpatient (IN) | payer MEDICARE, MEDICAID, SELFPAY ==
[2020-07-05] VITALS (20 sets, daily range): BP systolic 101–140; BP diastolic 61–90; PULSE 52–97; RESP 12–18; TEMP 36–36.9; O2SAT 91–100; BMI 27.4
--- NOTE | ~2020-07-05 | CT_ITS ---
EXAMINATION: CT abdomen pelvis w con DATE: 07/05/2020 06:21 INDICATION: Umbilical hernia pain. TECHNIQUE: Computed tomography (CT) of the abdomen and pelvis was performed with 100 cc Omnipaque 350 intravenous contrast. The dose-length product was 448.16 mGy-cm. Automated exposure control and iter ative reconstruction technique were employed. COMPARISON: CT dated 01/21/2020. FINDINGS: There is an umbilical hernia containing small bowel loops with resulting obstruction and up stream mild dilation. The distal small bowel is relatively decompressed. There is mild edema of the e ntrapped mesentery with fluid. Cannot exclude strangulation. There is cirrhosis of the liver with recanalization of the umbilical vein. There is thrombosis of the umbilical vein above the level of the umbilicus. There is trace free fluid in the abdomen. No free a ir. The spleen, pancreas, adrenal glands and kidneys are unremarkable. There are lucencies of the endplat es of L5-S1 paracentral to the left, most likely degenerative. 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 IMPRESSION: 1. Umbilical hernia with resulting small bowel obstruction. Cannot exclude strangulation. 2: Cirrhosis of the liver. Recanalization of the umbilical vein with new thrombosis above the level of the umbilicus since the prior examination. 3: Stable lucencies of the endplates of L5-S1 paracentral to the left, most likely degenerative. Give n the lack of interval change, discitis/osteomyelitis is less favored. Reviewed, dictated and finalized at location A. [facility] IMPRESSION: 1. Umbilical hernia with resulting small bowel obstruction. Cannot exclude stra ngulation. 2: Cirrhosis of the liver. Recanalization of the umbilical vein with new throm bosis above the level of the umbilicus since the prior examination. 3: Stable lucencies of the endplates of L5-S1 paracentral to the left, most lik daljit degenerative. Given the lack of interval change, discitis/osteomyelitis is less favored.
[2020-07-05] MEDS: ONDANSETRON INJ 4 MG/2 ML VIAL IV PUSH (05:07)
[2020-07-05] MEDS: HYDROmorphone HCL INJ (*CRX) 1 MG/ML SYR IV PUSH (05:07)
[2020-07-05] MEDS: SODIUM CHLORIDE 0.9% IV 1,000 ML 999 ML IV CONT (05:07)
[2020-07-05 05:08] LABS: Basophils Absolute Auto 0.1 K/mm3 (0.0-0.1); Basophils Percent Auto 1.3 % (0.2-1.2); Eosinophils Absolute Auto 0.2 K/mm3 (0-0.3); Eosinophils Percent Auto 2.6 % (0-4.4); Hematocrit 37.7 % (37.0-47.0); Hemoglobin 12.2 g/dL (12.0-15.0); Immature Granulocyte Absolute 0.03 K/mm3 (0.00-0.031); Immature Granulocyte Percent A 0.4 % (0-0.5); Lymphocytes Absolute Auto 1.76 K/mm3 (0.9-3.2); Lymphocytes Percent Auto 22.2 % (18.3-44.2); Mean Corpuscular HGB Conc 32.4 g/dl (32-36); Mean Corpuscular Hemoglobin 26.2 pg (26-34); Mean Corpuscular Volume 81.1 fl (80-100); Mean Platelet Volume 10.9 fl (7.4-10.4); Monocytes Absolute Auto 0.5 K/mm3 (0.1-0.6); Monocytes Percent Auto 6.8 % (2.6-8.5); Neutrophils Absolute Auto 5.3 K/mm3 (1.3-6.7); Neutrophils Percent Auto 66.7 % (45.5-73.1); Platelet Count Result 247 k/mm3 (150-375); Red Blood Count 4.65 M/mm3 (4.2-5.4); Red Cell Distribution Width 20.1 % (11.5-14.5); White Blood Count 7.9 K/mm3 (4.5-10.0)
--- NOTE | 2020-07-05 05:09 | PC.NURSE ---
pt o2 saturation decreased to 84% after getting dilaudid. pt placed on 3L, oxygen saturation increased to 95%.
[2020-07-05 05:17] LABS: INR 1.2; Prothrombin Time 15.4 Seconds (11.1-14.7)
[2020-07-05 05:18] LABS: Partial Thromboplastin Time 35.4 SECONDS (22.3-36.8)
[2020-07-05 05:19] LABS: Ammonia 14 umol/L (9-30)
[2020-07-05 05:21] LABS: Alanine Aminotransferase 31 U/L (4-35); Albumin Level 3.8 g/dL (3.5-5.1); Alkaline Phosphatase 293 U/L (38-126); Anion Gap 4 mmol/L (8-16); Aspartate Amino Transferase 56 U/L (14-36); Bilirubin,Total 0.9 mg/dL (0.2-1.3); Blood Urea Nitrogen 12 mg/dL (7-17); Calcium 9.3 mg/dL (8.4-10.2); Carbon Dioxide 26 mmol/L (22-30); Chloride 108 mmol/L (98-107); Estimated Glomerular Filt Rate > 60; Glucose 107 mg/dL (65-105); Lipase 87 U/L (23-300); Potassium 3.5 mmol/L (3.4-5.0); Sodium 138 mmol/L (137-145)
--- NOTE | 2020-07-05 05:21 | ED.ABDPAIN ---
HPI - Abdominal Pain General Chief Complaint: Abdominal Pain <Mikaela Bey MD - Last Filed: 07/08/20 12:36> Stated Complaint: abd pain <Mikaela Bey MD - Last Filed: 07/08/20 12:36> Source: patient and EMS <Mikaela Bey MD - Last Filed: 07/08/20 12:36> Mode of arrival: EMS <Mikaela Bey MD - Last Filed: 07/08/20 12:36> Limitations: no limitations <Mikaela Bey MD - Last Filed: 07/08/20 12:36> History of Present Illness HPI narrative: This patient is a 45 year old female with history of alcoholic cirrhosis who presents for evaluation of abdominal pain. Patient has an umbilical hernia that has been present for long time. This morning after patient eat breakfast she developed severe pain at her umbilical hernia. She denies having nausea or vomiting. Her last bowel movement was on Monday. She denies fever or chills. She states her hernia has been protruding for while . She does not know if has gotten large today. Her pain is currently 10/ <Mikaela Bey MD - Last Filed: 07/08/20 12:36> Related Data Home Medications: Home Medications Medication Instructions Recorded Confirmed allopurinol 300 mg PO DAILY 01/20/20 07/05/20 gabapentin 600 mg PO QID 01/20/20 07/05/20 meloxicam 7.5 mg PO BID PRN 01/20/20 07/05/20 omeprazole 40 mg PO DAILY 01/20/20 07/05/20 spironolactone 100 mg PO DAILY 01/20/20 07/05/20 albuterol sulfate 2 puff INHALATION Q4H PRN 01/21/20 07/05/20 atorvastatin 40 mg PO DAILY 01/21/20 07/05/20 baclofen 20 mg PO Q8H 01/21/20 07/05/20 duloxetine 60 mg PO DAILY 01/21/20 07/05/20 levothyroxine 175 mcg PO QAM 01/21/20 07/05/20 sertraline 50 mg PO DAILY 01/21/20 07/05/20 <Mikaela Bey MD - Last Filed: 07/08/20 12:36> Allergies/Adverse Reactions: Allergies Allergy/AdvReac Type Severity Reaction Status Date / Time mold Allergy Headache Verified 07/05/20 12:18 <Mikaela Bey MD - Last Filed: 07/08/20 12:36> Review of Systems Review of Systems: All systems reviewed & are unremarkable except as noted in HPI and below <Mikaela Bey MD - Last Filed: 07/08/20 12:36> Constitutional: Constitutional: Denies chills and Denies fever(s) <Mikaela Bey MD - Last Filed: 07/08/20 12:36> Cardiovascular: Cardiovascular: Denies chest pain <Mikaela Bey MD - Last Filed: 07/08/20 12:36> Respiratory: Respiratory: Denies dyspnea <Mikaela Bey MD - Last Filed: 07/08/20 12:36> Gastrointestinal: Gastrointestinal: Reports abdominal pain, Reports constipation, Reports nausea and Denies vomiting <Mikaela Bey MD - Last Filed: 07/08/20 12:36> [facility] Past Medical History Medical History: Medical History (Updated 07/08/20 @ 10:26 by Timothy Navarro MD) Alcohol use disorder, severe, in sustained remission Alcoholic cirrhosis Alcoholic encephalopathy Bleeding duodenal ulcer 01/2020 Bleeding gastric ulcer 01/2020 Hyperlipidemia Hypothyroidism (acquired) Nicotine use disorder Peripheral neuropathy Spider bite 04/2020 RIGHT LATERAL ANKLE Spinal abscess 2015: drained and treated with prolonged IV antibiotics <Mikaela Bey MD - Last Filed: 07/08/20 12:36> Surgical History Surgical History: Surgical History History of tracheostomy <Mikaela Bey MD - Last Filed: 07/08/20 12:36> Family History Family History: Family History (Updated 07/05/20 @ 18:27 by Monster Larios MD) Father No problems noted. Mother No problems noted. Other Diabetes mellitus <Mikaela Bey MD - Last Filed: 07/08/20 12:36> Social History Social History: Social History (Updated 07/05/20 @ 18:29 by Monster Larios MD) Smoking packs per day: 0.25 Smoking cigarettes per day: 5.0 Years smoked: 40 Smoking pack-years: 10.00 Smoking status: Current every day smoker Tobacco type: cigarett
[2020-07-05 05:34] LABS: Add Urine Microscopic? YES; Appearance Urine Clear (Clear); Bacteria Urine Trace /hpf; Bilirubin Urine Negative (Negative); Blood Urine Negative (Negative); Color Urine Yellow (Yellow); Glucose Urine UA Negative (Negative); Ketones Urine Negative (Negative); Leukocyte Esterase Ur Negative LEU/UL (Negative); Mucus Urine Rare /lpf; Nitrate Urine Negative (Negative); Protein Urine 2+ mg/dL (Negative); Specific Grav Ur 1.011 (1.001-1.035); Squamous Epithelial Cell Urine Many /hpf (Few); Urobilinogen Urine Negative mg/dL (<2.0); WBC Urine 0-3 /hpf
--- NOTE | 2020-07-05 05:58 | PC.NURSE ---
PT TO CT AT THIS TIME
--- NOTE | 2020-07-05 06:25 | PC.NURSE ---
PT WAS SLEEPING WHEN THIS RN WENT INTO ROOM 10 TO CHECK ON PT. PT STATES SHES IN 8/10 PAIN.
--- NOTE | 2020-07-05 06:34 | PC.NURSE ---
PT ASKED FOR WATER AT THIS TIME. THIS RN INSTRUCTED PT TO HOLD OF DUE TO US WAITING ON CT RESULTS.
--- NOTE | 2020-07-05 08:01 | WPDANESEPP ---
Anes - Eval Pre Procedure Procedure: repair of umbilical incarcerated hernia Date/Time: 07/05/20 08:01 Surgeon: isaias Pre Op Diagnosis: abd pain Patient Data Age: 45 Gender: F Height: Weight: Last Vital Signs Temp 36.0 C L 07/05/20 04:36 Pulse 67 07/05/20 06:24 Resp 18 07/05/20 06:24 BP 134/87 07/05/20 06:24 Pulse Ox 100 07/05/20 06:24 Allergies Allergy/AdvReac Type Severity Reaction Status Date / Time aspirin AdvReac Unknown Verified 01/21/20 06:44 Home Medications Medication Instructions Recorded Confirmed Type allopurinol 300 mg PO DAILY 01/20/20 01/21/20 History gabapentin 600 mg PO QID 01/20/20 01/21/20 History meloxicam 7.5 mg PO BID PRN 01/20/20 01/21/20 History omeprazole 40 mg PO DAILY 01/20/20 01/21/20 History spironolactone 100 mg PO DAILY 01/20/20 01/21/20 History albuterol sulfate 2 puff INHALATION Q4H PRN 01/21/20 01/21/20 History atorvastatin 40 mg PO DAILY 01/21/20 01/21/20 History baclofen 20 mg PO Q8H 01/21/20 01/21/20 History duloxetine 60 mg PO DAILY 01/21/20 01/21/20 History levothyroxine 175 mcg PO QAM 01/21/20 01/21/20 History sertraline 50 mg PO DAILY 01/21/20 01/21/20 History lactulose 30 g PO Q12HR #1000 ml 01/27/20 Rx magnesium oxide 400 mg PO QAM #30 tablet 01/27/20 Rx multivitamin with iron [Daily 1 tablet PO DAILY #90 tablet 01/27/20 Rx Multiple Vitamins/Iron] pantoprazole [Protonix] 40 mg PO BID #60 each 01/27/20 Rx rifaximin [Xifaxan] 550 mg PO Q12HR #60 tablet 01/27/20 Rx silver [Silver-Sept] 1 applic TOPICAL DAILY #60 g 01/27/20 Rx white petrolatum-mineral oil 1 applic LEFTEYE Q12HR #10 g 01/27/20 Rx [Lubrifresh PM] Laboratory Tests 07/05/20 07/05/20 07/05/20 04:46 04:46 04:50 WBC 7.9 K/mm3 K/mm3 (4.5-10.0) RBC 4.65 M/mm3 M/mm3 (4.2-5.4) Hgb 12.2 g/dL g/dL (12.0-15.0) Hct 37.7 % % (37.0-47.0) MCV 81.1 fl fl (80-100) MCH 26.2 pg pg (26-34) MCHC 32.4 g/dl g/dl (32-36) RDW 20.1 % H % (11.5-14.5) Plt Count 247 k/mm3 k/mm3 (150-375) MPV 10.9 fl H fl (7.4-10.4) Immature Gran % (Auto) 0.4 % % (0-0.5) Neut % (Auto) 66.7 % % (45.5-73.1) Lymph % (Auto) 22.2 % % (18.3-44.2) [place] % (Auto) 6.8 % % (2.6-8.5) Eos % (Auto) 2.6 % % (0-4.4) Baso % (Auto) 1.3 % H % (0.2-1.2) Lymph # (Auto) 1.76 K/mm3 K/mm3 (0.9-3.2) [place] # (Auto) 0.5 K/mm3 K/mm3 (0.1-0.6) Eos # (Auto) 0.2 K/mm3 K/mm3 (0-0.3) Baso # (Auto) 0.1 K/mm3 K/mm3 (0.0-0.1) Abs Immat Gran (auto) 0.03 K/mm3 K/mm3 (0.00-0.031) Absolute Neuts (auto) 5.3 K/mm3 K/mm3 (1.3-6.7) Absolute Nucleated RBC 0.0 K/mm3 K/mm3 (0.0-0.012) Nucleated RBC % 0.0 % % (0.0-0.2) PT 15.4 Seconds H Seconds (11.1-14.7) INR 1.2 APTT 35.4 SECONDS SECONDS (22.3-36.8) Sodium 138 mmol/L mmol/L (137-145) Potassium 3.5 mmol/L mmol/L (3.4-5.0) Chloride 108 mmol/L H mmol/L (98-107) Carbon Dioxide 26 mmol/L mmol/L (22-30) Anion Gap 4 mmol/L L mmol/L (8-16) BUN 12 mg/dL D mg/dL (7-17) Creatinine 0.90 mg/dL mg/dL (0.7-1.0) Estim Creat Clear Calc Not Reportable Estimated GFR > 60 (59 - ) Glucose 107 mg/dL H mg/dL (65-105) Calcium 9.3 mg/dL mg/dL (8.4-10.2) Total Bilirubin 0.9 mg/dL mg/dL (0.2-1.3) AST 56 U/L H U/L (14-36) ALT 31 U/L U/L (4-35) Alkaline Phosphatase 293 U/L H U/L (38-126) Ammonia Total Protein 9.0 g/dL H g/dL (6.3-8.2) Albumin 3.8 g/dL g/dL (3.5-5.1) Lipase 87 U/L U/L (23-300) Urine Color Urine Appearance Urine pH Ur Specific [place]
--- NOTE | 2020-07-05 08:26 | PM.IMHP ---
H&P: HPI History of Present Illness Date/Time: 07/05/20 08:26 Chief Complaint: abdominal pain Narrative: Sabi Tafoya is a 45 year old female Who came to the emergency room last night with abdominal pain Isabell an umbilical bulge. She was noted to have an incarcerated umbilical hernia. Her pain started yesterday. She had vomiting last night which was mostly dry heaves. Despite analgesics, the hernia is unable to be reduced in the emergency room. CT scan shows evidence of a partial small bowel obstruction with loops of bowel incarcerated in the hernia. The patient is admitted now for incarcerated umbilical hernia with small-bowel obstruction. The patient is an alcoholic, however she has not had any alcohol for 18 months. Reviewing her labs, her meld score seems to be well under 10. She was admitted last January with a bleeding duodenal ulcer which was complicated by hepatic encephalopathy and acute respiratory failure. She has since recovered from that although she admits she does take 3 to for ibuprofen every day. She is a smoker approximately a pack and half per week. She is taken to surgery now emergently for repair of incarcerated umbilical hernia with obstruction. Review of Systems Review of Systems: All systems reviewed & are unremarkable except as noted in HPI and below Constitutional: Constitutional: Reports anorexia, Denies body ache(s), Denies chills, Denies fever(s), Denies headache(s) and Reports poor appetite ENT: Denies headache(s) Cardiovascular: Cardiovascular: Denies chest pain and Denies dyspnea Respiratory: Respiratory: Reports cough ( Chronic smoker's cough), Denies dyspnea, Denies stridor and Denies wheezing Gastrointestinal: Gastrointestinal: Reports as per HPI, Reports abdominal pain, Denies dyspepsia, Reports nausea, Reports vomiting and Denies hematemesis Neurologic: Denies confusion, Denies headache(s) and Reports other ( history of C3-4 abscess with chronic wound healing about 4 years ago.) Psychiatric: Psychiatric: Denies confusion PMFSH Past Medical History Medical History Alcoholic cirrhosis Surgical History Surgical History History of tracheostomy Family History Family History Other Diabetes mellitus Social History Social History Smoking status: Former smoker Alcohol intake: current Drinks per week: 70 Substance use: unknown Gender identity (if verbalized by the patient): Female Spiritual care concerns: No Meds Home Medications and Allergies Home Medications Medication Instructions Recorded Confirmed Type allopurinol 300 mg PO DAILY 01/20/20 01/21/20 History gabapentin 600 mg PO QID 01/20/20 01/21/20 History meloxicam 7.5 mg PO BID PRN 01/20/20 01/21/20 History omeprazole 40 mg PO DAILY 01/20/20 01/21/20 History spironolactone 100 mg PO DAILY 01/20/20 01/21/20 History albuterol sulfate 2 puff INHALATION Q4H PRN 01/21/20 01/21/20 History atorvastatin 40 mg PO DAILY 01/21/20 01/21/20 History baclofen 20 mg PO Q8H 01/21/20 01/21/20 History duloxetine 60 mg PO DAILY 01/21/20 01/21/20 History levothyroxine 175 mcg PO QAM 01/21/20 01/21/20 History sertraline 50 mg PO DAILY 01/21/20 01/21/20 History lactulose 30 g PO Q12HR #1000 ml 01/27/20 Rx magnesium oxide 400 mg PO QAM #30 tablet 01/27/20 Rx multivitamin with iron [Daily 1 tablet PO DAILY #90 tablet 01/27/20 Rx Multiple Vitamins/Iron] pantoprazole [Protonix] 40 mg PO BID #60 each 01/27/20 Rx rifaximin [Xifaxan] 550 mg PO Q12HR #60 tablet 01/27/20 Rx silver [Silver-Sept] 1 applic TOPICAL DAILY #60 g 01/27/20 Rx white petrolatum-mineral oil 1 applic LEFTEYE Q12HR #10 g 01/27/20 Rx [Lubrifresh PM] Allergies Allergy/AdvReac Type Severity Reaction Status Date / Time aspirin AdvReac U
[2020-07-05] MEDS: ceFAZolin 2 GM/D5W 50 ML 2 GM/50 ML BAG IVPB (08:27)
--- NOTE | 2020-07-05 08:38 | WPDHPUPDATE1 ---
History and Physical Update Update Date/Time: 07/05/20 08:38 History and Physical has been reviewed, including an updated exam of the patient. There are NO changes in the patient's condition. Risks, benefits, and alternatives have been discussed and questions answered. Patient agrees to proceed with procedure.
--- NOTE | 2020-07-05 08:58 | PC.NURSE ---
Called boyfriend to notify him that patient is going to surgery.
--- NOTE | 2020-07-05 08:59 | WPDANESEFPP ---
Anes - Eval Final PreProcedure Day of Procedure 07/05/20 08:59 Patient weight: overweight Heart: regular rate and rhythm Lungs: clear to auscultation Airway: Mallampati scale class II and special considerations poor dentition Neurological: other (alert) Last oral intake: >/= 8 hours ASA classification: IV Emergent: yes Anesthetic plan: proceed Anesthesia type and monitoring: general ETT and standard monitoring Informed Consent: The patient's anesthetic plan and its attendant risks and benefits were discussed with the patient/family/POA. Questions were solicited and answers provided to the satisfaction of the patient/family/POA.
--- NOTE | 2020-07-05 10:12 | SUR.OPER ---
poor dental status multiple cavities
[2020-07-05] MEDS: LACTATED RINGERS 1,000 ML 30 ML IV CONT (10:24)
--- NOTE | 2020-07-05 10:43 | P.OP_ITS ---
Procedure Note - Detailed Date of procedure: 07/05/20 Pre-op diagnosis: Incarcerated umbilical hernia with obstruction Incarcerated umbilical ventral hernia with small-bowel obstruction, no gangrene Post-op diagnosis: other (Incarcerated umbilical ventral hernia with small-bowel obstruction, no gangrene, portal hypertension) Procedure performed: Repair incarcerated umbilical hernia with 6.6 cm Parietex underlay mesh Description of procedure: The patient was taken to surgery and induced into general anesthesia. The abdomen was prepped and draped. Under general anesthesia, I was able to reduce the incarcerated hernia without difficulty. The proposed incision was marked along the lower margin of the umbilicus. Local anesthetic was infiltrated into the skin and the deeper subcutaneous tissues. The patient required very minimal anesthetic agent as communicated by our anesthesiologist. Incision was made and dissection was carried down through the subcutaneous to the hernia sac. There was quite a large hernia sac. The sac was dissected free from the surrounding subcutaneous and free from the umbilical skin. It was dissected back to its neck. I then amputated the hernia sac at its neck and sent the sac as a specimen. Additional local anesthetic was then infiltrated into the fascia all around the hernia defect. I started to undermine the subcutaneous around the hernia defect when I encountered very brisk venous bleeding. There were large periumbilical veins consistent with portal hypertension which were bleeding. These were clamped and subsequently ligated with 3 0 Vicryl ties. The entire peritoneal edge had increased oozing of blood and required additional cautery. One small artery was clamped and ligated with 3 0 Vicryl as well. Eventually the wound was made hemostatic. Care was taken to avoid any of these enlarged periumbilical veins further in the procedure. I undermined the remainder of the subcutaneous around the edge of the hernia defect. A 6.6 cm Parietex [place] was chosen. It was placed in the defect and position symmetrically. I then placed cranial and caudal transfascial sutures of 0 Ethibond in the usual fashion. These were position such that, when tied, they would draw the edges of the hernia defect towards 1 another. I tied down each of the sutures and they had the desired effect. I then closed the hernia defect over the mesh with [id number] mattress suture of 0 Ethibond. Each of these sutures incorporated a bit of mesh as well. No additional bleeding occurred. I infiltrated additional local into the fascia all around the area of the repair. I then sutured the umbilical skin to the fascia with interrupted 3 0 Vicryl suture. This inverted the umbilical skin nicely. The skin was loosely approximated with interrupted 3 0 and 4 0 Vicryl subcuticular suture. The skin was finally closed with a running 4 0 Monocryl skin suture. The wound was dressed with Exofin surgical adhesive. The patient was awakened and taken to recovery in good condition. Sponge and needle counts were correct x2. Implants: 6.6 cm Parietex underlay mesh Anesthesia: GETA and local (0.5% Marcaine with Exparel) Surgeon: Timothy Navarro MD Floriculture Professor: Julio César BAUTISTA Estimated blood loss (mL): 100 Drains: No Packing: No Pathology: yes (Hernia sac) Complications: None Condition: stable Disposition: PACU Findings: 1.8 cm defect with enlarged periumbilical veins consistent with portal hypertension. Significantly more bleeding than is usual due to these engorged periumbilical veins.
--- NOTE | 2020-07-05 11:48 | PC.NURSE ---
This patient, Sabi Tafoya, was admitted to Medical Room 254-01. Patient/family oriented to hospital policies and general routines including ID bracelet, bed and alarms, visiting hours, pain management, procedures, bathroom and other care routines, personal items, smoking policy, room service/diet, and visiting hours. Information on how to activate the Rapid Response Team has been discussed. Patient/Family are encouraged to report perceived risks to care and to ask questions if they do not understand what they are told or what they should do.
[2020-07-05] MEDS: LACTATED RINGERS 1,000 ML 100 ML IV CONT (12:06)
[2020-07-05] MEDS: NICOTINE (*PBKC) 14 MG PATCH 1 PATCH TRANSDERM (12:41)
[2020-07-05] MEDS: PANTOPRAZOLE SODIUM IV 40 MG VIAL IV PUSH (12:41)
--- NOTE | 2020-07-05 13:17 | PM.IMCN ---
Assessment and Plan Assessment and plan (1) Umbilical hernia with obstruction, without gangrene: Code(s): K42.0 - Umbilical hernia with obstruction, without gangrene Status: Acute Assessment and Plan: Uneventful repair earlier today Monitor for return of bowel function and any late complications of anesthesia At this point however she appears to be doing well (2) Alcohol use disorder, severe, in sustained remission: Code(s): F10.21 - Alcohol dependence, in remission Status: Acute Assessment and Plan: Encouraged continued abstinence (3) Alcoholic cirrhosis: Qualifiers: Ascites presence: without ascites Qualified Code(s): K70.30 - Alcoholic cirrhosis of liver without ascites Code(s): K70.30 - Alcoholic cirrhosis of liver without ascites Status: Chronic Assessment and Plan: Continue rifaximin and spironolactone and lactulose (4) Spider bite: Qualifiers: Encounter type: subsequent encounter Injury intent: accidental or unintentional Qualified Code(s): T63.301D - Toxic effect of unspecified spider venom, accidental (unintentional), subsequent encounter Code(s): T63.301A - Toxic effect of unspecified spider venom, accidental (unintentional), initial encounter Status: Inactive Assessment and Plan: Continue wound care (5) Hypothyroidism (acquired): Code(s): E03.9 - Hypothyroidism, unspecified Status: Acute Assessment and Plan: Continue levothyroxine (6) Peripheral neuropathy: Qualifiers: Peripheral neuropathy type: polyneuropathy, unspecified Qualified Code(s): G62.9 - Polyneuropathy, unspecified Code(s): G62.9 - Polyneuropathy, unspecified Status: Acute Assessment and Plan: Continue gabapentin and duloxetine (7) Hyperlipidemia: Qualifiers: Hyperlipidemia type: unspecified Qualified Code(s): E78.5 - Hyperlipidemia, unspecified Code(s): E78.5 - Hyperlipidemia, unspecified Status: Acute Assessment and Plan: Continue atorvastatin HPI Data of Consult Consult date: 07/05/20 Requesting Physician: Timothy Navarro MD Primary Care Provider: Sudhakar MerlosMD Consult Narrative Narrative: Sabi Tafoya is a 45 year old female with chronic umbilical hernia. She has chronic liver disease due to alcohol consumption. Stop drinking in early 2019 or late 2018. Was drinking about 70 drinks per week. Over the last several days her hernia has been hurting more. [id number] aching to sharp pain in the periumbilical region. Last night he began hurting severely. Crampy periumbilical pain without radiation. She came the emergency department. She underwent an uneventful repair of incarcerated umbilical hernia earlier today. Postoperatively she denies pain at this point. She denies shortness of breath cough congestion swelling fevers chills sweats and. She has not been eating and drinking very well for the past 24 hours due to the pain. She does not remember 1 her bowels last moved. But she denied any difficulty with bowel movements or urination. She does have some intermittent swelling of her ankles. Usually resolves with elevation. She has a history of peptic ulcer disease in January 2020. She had gastrointestinal bleeding with hepatic encephalopathy and respiratory failure requiring mechanical ventilation. Despite this she still takes about 400 mg of ibuprofen about 4 days per week. She has been evaluated at [facility] hepatology Department. Test for hepatitis A, B and C were negative. She does have a family history of liver disease in at least 3 relatives who were not drinkers, and aunt, and uncle, and 1 grandparent. Her test for genetic liver disease allegedly returned unremarkable. She did not or father. Mother because ?she did not take care of herself?. Patient is unsure of cause of . Review of System
[2020-07-05] MEDS: HYDROcodone/acetaminophen (*CRX) 7.5-325 MG TABLET 1 TAB PO (17:40)
[2020-07-05] MEDS: rifAXIMin 550 MG TABLET PO (21:05)
[2020-07-05] MEDS: GABAPENTIN 300 MG CAPSULE 600 MG PO (21:05)
[2020-07-05] MEDS: LACTULOSE 20 GM/30 ML UDC 30 GM PO (21:06)
[2020-07-05] MEDS: ENOXAPARIN 30 MG/0.3 ML SYRINGE SUB-Q (21:06)
[2020-07-06 02:02] VITALS: BP 109/75; PULSE 76; RESP 16; TEMP 36.4; O2SAT 96
[2020-07-06] MEDS: LACTATED RINGERS 1,000 ML 100 ML IV CONT (03:35)
[2020-07-06 05:27] LABS: Hematocrit 35.7 % (37.0-47.0); Hemoglobin 11.4 g/dL (12.0-15.0); Mean Corpuscular HGB Conc 31.9 g/dl (32-36); Mean Corpuscular Hemoglobin 26.5 pg (26-34); Mean Corpuscular Volume 82.8 fl (80-100); Mean Platelet Volume 10.9 fl (7.4-10.4); Platelet Count Result 258 k/mm3 (150-375); Red Blood Count 4.31 M/mm3 (4.2-5.4); White Blood Count 11.4 K/mm3 (4.5-10.0)
[2020-07-06 05:34] LABS: INR 1.2; Prothrombin Time 15.6 Seconds (11.1-14.7)
[2020-07-06 05:35] LABS: Partial Thromboplastin Time 36.1 SECONDS (22.3-36.8)
[2020-07-06 05:45] LABS: Anion Gap 4 mmol/L (8-16); Blood Urea Nitrogen 16 mg/dL (7-17); Calcium 8.6 mg/dL (8.4-10.2); Carbon Dioxide 27 mmol/L (22-30); Chloride 107 mmol/L (98-107); Estimated CRCL calculation 60 ml/min; Estimated Glomerular Filt Rate 59; Glucose 89 mg/dL (65-105); Potassium 3.5 mmol/L (3.4-5.0); Sodium 138 mmol/L (137-145)
[2020-07-06 06:00] VITALS: BP 111/84; PULSE 78; RESP 18; TEMP 36.4; O2SAT 100
[2020-07-06] MEDS: LEVOTHYROXINE SODIUM 100 MCG, LEVOTHYROXINE SODIUM 75 MCG 175 MCG PO (06:37)
--- NOTE | 2020-07-06 06:38 | PM.PNGS ---
Progress Note: A&P Assessment and Plan (1) Umbilical hernia with obstruction, without gangrene: Code(s): K42.0 - Umbilical hernia with obstruction, without gangrene Status: Acute Assessment and Plan: no bowel sounds this morning. Will continue NPO except sips of ice chips and meds with sips. Probably start clear liquids tomorrow if no nausea or vomiting. Continue IV fluids and follow labs. Ambulate more today. (2) Alcohol use disorder, severe, in sustained remission: Code(s): F10.21 - Alcohol dependence, in remission Status: Acute (3) Nicotine use disorder: Code(s): F17.200 - Nicotine dependence, unspecified, uncomplicated Status: Acute Subjective Subjective Date/Time Seen: 07/06/20 06:38 Post Op day: 1 Patient reports: no new complaints, feels better, pain is less, flatus and no bowel movement Review of Systems Review of Systems: All systems reviewed & are unremarkable except as noted in HPI and below Constitutional: Constitutional: Denies headache(s) Respiratory: Respiratory: Denies cough and Denies dyspnea Gastrointestinal: Gastrointestinal: Reports as per HPI, Denies GI cramping, Denies heartburn, Denies nausea and Denies vomiting Neurologic: Denies confusion and Denies headache(s) Exam Const: General: comfortable and no acute distress; No confusion Orientation/consciousness: patient oriented x3 and No confusion GI: Inspection: incision ( Dry and intact, healing) GI Palp: Yes Soft to palpation, Yes Tenderness to palpation present (GI), No Guarding due to palpation present (GI) and No Rebound tenderness present Auscultation: absent bowel sounds Neuro: General: patient oriented x3, no focal motor deficits and No confusion Extrem: General: no calf tenderness and no edema Psych: Affect: normal affect Insight: Good insight present (Psych) Judgement: Good judgement present (Psych) Objective Data Vital Signs Vital Signs: Vital Signs - 24 hr 07/05/20 07:30 07/05/20 08:15 07/05/20 08:48 Temperature Pulse Rate 65 84 66 Respiratory Rate 14 16 18 Blood Pressure 114/69 117/82 124/87 Pulse Oximetry 97 96 97 07/05/20 10:24 07/05/20 10:30 07/05/20 10:45 Temperature 36.6 C Pulse Rate 72 62 62 Respiratory Rate 14 12 12 Blood Pressure 106/71 102/68 108/73 Pulse Oximetry 99 100 100 07/05/20 11:00 07/05/20 11:15 07/05/20 11:30 Temperature Pulse Rate 61 97 61 Respiratory Rate 14 12 12 Blood Pressure 111/77 111/81 118/82 Pulse Oximetry 99 97 97 07/05/20 11:50 07/05/20 12:05 07/05/20 12:35 Temperature 36.3 C L 36.6 C 36.3 C L Pulse Rate 64 57 L 52 L Respiratory Rate 16 14 16 Blood Pressure 115/63 108/69 101/61 Pulse Oximetry 95 91 93 07/05/20 13:22 07/05/20 14:00 07/05/20 18:00 Temperature 36.5 C 36.9 C Pulse Rate 97 97 Respiratory Rate 16 16 Blood Pressure 124/79 120/82 Pulse Oximetry 96 93 93 07/05/20 20:00 07/05/20 22:10 07/06/20 02:02 Temperature 36.3 C L 36.4 C L Pulse Rate 80 76 Respiratory Rate 16 16 Blood Pressure 107/70 109/75 Pulse Oximetry 95 95 96 07/06/20 06:00 Temperature 36.4 C Pulse Rate 78 Respiratory Rate 18 Blood Pressure 111/84 Pulse Oximetry 100 Intake/Output Intake/Output: Intake & Output 07/03/20 07/04/20 07/05/20 07/06/20 23:59 23:59 23:59 23:59 Intake Total 1130 120 Output Total 500 Balance 1130 -380 Meds/Results Medications: Active Medications Generic Name Dose Route Start Last Admin Trade Name Freq PRN Reason Stop Dose Admin Hydrocodone Bitart/Acetaminophen 1 tab 07/05/20 11:39 Hydrocodone/Acetaminophen (*Crx) 5-325 Mg Tablet PO Q4H PRN Pain Rated 4-6 Hydrocodone Bitart/Acetaminophen 1 tab 07/05/20 11:39 07/05/20 17:40 Hydrocodone/Acetaminophen (*Crx) 7.5-325 Mg Tablet PO 1 tab Q4H PRN Administration Pain Rated 7-10 Albuterol 2 puff 07/05/20 18:32 Albuterol Sulfate (*Sp) Aerosol 1 Puff INHALATION Q4H PRN Wh
--- NOTE | 2020-07-06 07:42 | WPDANESPN ---
Anes - Prog Note Post-Op Date/Time: 07/06/20 07:42 Cardiovascular status: normal Respiratory status: normal Airway patency: baseline Mental status: baseline Post-Op hydration status: normal Vital Signs: Last Vital Signs Temp 36.4 C 07/06/20 06:00 Pulse 78 07/06/20 06:00 Resp 18 07/06/20 06:00 BP 111/84 07/06/20 06:00 Pulse Ox 100 07/06/20 06:00 Pain Score (VAS): 06/28 I/O: Intake & Output 07/05/20 07/05/20 07/06/20 15:59 23:59 07:59 Intake Total 50 1080 120 Output Total 500 Balance 50 1080 -380 Laboratory Tests 07/06/20 05:05 07/06/20 05:05 07/06/20 07/06/20 07/06/20 05:05 05:05 05:05 WBC 11.4 H RBC 4.31 Hgb 11.4 L Hct 35.7 L MCV 82.8 MCH 26.5 MCHC 31.9 L RDW 20.0 H Plt Count 258 MPV 10.9 H PT 15.6 H INR 1.2 APTT 36.1 Sodium 138 Potassium 3.5 Chloride 107 Carbon Dioxide 27 Anion Gap 4 L BUN 16 Creatinine 1.00 Estim Creat Clear Calc 60 Estimated GFR 59 Glucose 89 Calcium 8.6 Post-procedural complaints: none Patient Feedback: Patient satisfied with anesthetic care.
[2020-07-06] MEDS: LACTULOSE 20 GM/30 ML UDC 30 GM PO (08:11)
[2020-07-06] MEDS: THERAPEUTIC MULTIVITAMINS/MINERALS TAB (*BKC) 1 TABLET PO (08:11)
[2020-07-06] MEDS: KCL 40 MEQ/D5/0.9% SOD CHL 1,000 ML 80 ML IV CONT (08:11)
[2020-07-06] MEDS: DULoxetine HCL 60 MG CAPSULE.DR PO (08:12)
[2020-07-06] MEDS: SPIRONOLACTONE 50 MG TABLET 100 MG PO (08:12)
[2020-07-06] MEDS: rifAXIMin 550 MG TABLET PO ×2 (08:12→20:22)
[2020-07-06] MEDS: GABAPENTIN 300 MG CAPSULE 600 MG PO ×4 (08:12→20:22)
[2020-07-06] MEDS: PANTOPRAZOLE 40 MG TABLET PO (08:12)
[2020-07-06] MEDS: MAGNESIUM OXIDE 400 MG TABLET PO (08:13)
[2020-07-06 09:45] VITALS: O2SAT 91
[2020-07-06 10:00] VITALS: BP 101/63; PULSE 69; RESP 14; TEMP 36.8; O2SAT 93
--- NOTE | 2020-07-06 12:29 | PM.IMPN ---
Progress Note: A&P Assessment and Plan (1) Umbilical hernia with obstruction, without gangrene: Code(s): K42.0 - Umbilical hernia with obstruction, without gangrene Status: Acute Assessment and Plan: Patient with chronic umbilical hernia that became incarcerated. Uneventful repair on 07/05/20. Patient appears to have tolerated the procedure well. She is having return of bowel function. Pain is well controlled. Diet advancement per General surgery. (2) Alcohol use disorder, severe, in sustained remission: Code(s): F10.21 - Alcohol dependence, in remission Status: Acute Assessment and Plan: Encouraged continued abstinence (3) Alcoholic cirrhosis: Qualifiers: Ascites presence: without ascites Qualified Code(s): K70.30 - Alcoholic cirrhosis of liver without ascites Code(s): K70.30 - Alcoholic cirrhosis of liver without ascites Status: Chronic Assessment and Plan: Stable. Continue rifaximin, spironolactone and lactulose. Monitor potassium given the potassium in her fluids and spironolactone. (4) Spider bite: Qualifiers: Encounter type: subsequent encounter Injury intent: accidental or unintentional Qualified Code(s): T63.301D - Toxic effect of unspecified spider venom, accidental (unintentional), subsequent encounter Code(s): T63.301A - Toxic effect of unspecified spider venom, accidental (unintentional), initial encounter Status: Inactive Assessment and Plan: Continue wound care (5) Hypothyroidism (acquired): Code(s): E03.9 - Hypothyroidism, unspecified Status: Acute Assessment and Plan: Continue levothyroxine (6) Peripheral neuropathy: Qualifiers: Peripheral neuropathy type: polyneuropathy, unspecified Qualified Code(s): G62.9 - Polyneuropathy, unspecified Code(s): G62.9 - Polyneuropathy, unspecified Status: Acute Assessment and Plan: Stable. Continue gabapentin and duloxetine (7) Hyperlipidemia: Qualifiers: Hyperlipidemia type: unspecified Qualified Code(s): E78.5 - Hyperlipidemia, unspecified Code(s): E78.5 - Hyperlipidemia, unspecified Status: Acute Assessment and Plan: LFTs slightly elevated more chronic felt related to her cirrhosis. Atorvastatin on hold Subjective Date/time seen: 07/06/20 12:29 Interval history: Date of service 07/06/20 45yo female with chronic umbilical hernia. She has chronic liver disease due to alcohol consumption. Stop drinking in early 2019 or late 2018. Assuming care. Chart reviewed Patient's abdominal pain is well controlled. She denies any chest pain or shortness of breath. No nausea or vomiting. No bowel movements but is having flatus. She feels hungry today. Exam Narrative: Exam Narrative: AF 98.2 101/63 69 14 93% 2L Gen - NARD lying almost flat in bed Chest - few rhonchi in he flanks, clear anteriorly, nml RR CV - RRR S1/S2 Abd -soft. Nondistended. positive sounds. Periumbilical incision is clean, dry and intact Ext - right leg dressing clean, dry and intact Neuro - nonfocal Skin - warm and dry Objective Data Vital Signs Vital Signs: Vital Signs - 24 hr 07/05/20 12:35 07/05/20 13:22 07/05/20 14:00 Temperature 97.4 F L 97.7 F Pulse Rate 52 L 97 Respiratory Rate 16 16 Blood Pressure 101/61 124/79 Pulse Oximetry 93 96 93 07/05/20 18:00 07/05/20 20:00 07/05/20 22:10 Temperature 98.4 F 97.3 F L Pulse Rate 97 80 Respiratory Rate 16 16 Blood Pressure 120/82 107/70 Pulse Oximetry 93 95 95 07/06/20 02:02 07/06/20 06:00 07/06/20 09:45 Temperature 97.5 F L 97.6 F Pulse Rate 76 78 Respiratory Rate 16 18 Blood Pressure 109/75 111/84 Pulse Oximetry 96 100 91 07/06/20 10:00 Temperature 98.2 F Pulse Rate 69 Respiratory Rate 14 Blood Pressure 101/63 Pulse Oximetry 93 Intake/Output Intake/Output: Intake & Output
[2020-07-06 14:00] VITALS: BP 114/73; PULSE 67; RESP 18; TEMP 36.5; O2SAT 92
[2020-07-06] MEDS: ONDANSETRON INJ 4 MG/2 ML VIAL IV PUSH (16:21)
--- NOTE | 2020-07-06 20:28 | PC.NURSE ---
dr. rowe informed of refusal of lactulose tonoc due to cramping.
[2020-07-06 22:00] VITALS: BP 106/69; PULSE 79; RESP 16; TEMP 36.1; O2SAT 94
[2020-07-07] MEDS: LEVOTHYROXINE SODIUM 100 MCG, LEVOTHYROXINE SODIUM 75 MCG 175 MCG PO (05:29)
[2020-07-07] MEDS: KCL 40 MEQ/D5/0.9% SOD CHL 1,000 ML 80 ML IV CONT (05:31)
[2020-07-07 05:51] LABS: Hematocrit 31.9 % (37.0-47.0); Hemoglobin 10.1 g/dL (12.0-15.0); Mean Corpuscular HGB Conc 31.7 g/dl (32-36); Mean Corpuscular Hemoglobin 26.2 pg (26-34); Mean Corpuscular Volume 82.9 fl (80-100); Mean Platelet Volume 10.7 fl (7.4-10.4); Platelet Count Result 191 k/mm3 (150-375); Red Blood Count 3.85 M/mm3 (4.2-5.4); White Blood Count 9.6 K/mm3 (4.5-10.0)
[2020-07-07 06:00] VITALS: BP 108/69; PULSE 73; RESP 18; TEMP 36.6; O2SAT 95
[2020-07-07 06:10] LABS: Anion Gap 3 mmol/L (8-16); Blood Urea Nitrogen 15 mg/dL (7-17); Carbon Dioxide 25 mmol/L (22-30); Chloride 109 mmol/L (98-107); Estimated CRCL calculation 60 ml/min; Estimated Glomerular Filt Rate 59; Glucose 72 mg/dL (65-105); Potassium 3.8 mmol/L (3.4-5.0); Sodium 137 mmol/L (137-145)
--- NOTE | 2020-07-07 06:40 | PM.PNGS ---
Progress Note: A&P Assessment and Plan (1) Umbilical hernia with obstruction, without gangrene: Code(s): K42.0 - Umbilical hernia with obstruction, without gangrene Status: Acute Assessment and Plan: bowel function slowly returning after small-bowel obstruction. Will start on full liquids and advance slowly as tolerated. Up walking more today. Labs look good. (2) Alcoholic cirrhosis: Qualifiers: Ascites presence: without ascites Qualified Code(s): K70.30 - Alcoholic cirrhosis of liver without ascites Code(s): K70.30 - Alcoholic cirrhosis of liver without ascites Status: Chronic Assessment and Plan: With portal hypertension (3) Nicotine use disorder: Code(s): F17.200 - Nicotine dependence, unspecified, uncomplicated Status: Acute Assessment and Plan: on nicotine patch Subjective Subjective Date/Time Seen: 07/07/20 06:40 Post Op day: 2 Patient reports: no new complaints, feels better, pain is less, flatus, no bowel movement and afebrile Review of Systems Review of Systems: All systems reviewed & are unremarkable except as noted in HPI and below Constitutional: Constitutional: Denies anorexia, Denies chills, Denies fever(s), Denies headache(s) and Denies poor appetite Cardiovascular: Cardiovascular: Denies chest pain and Denies dyspnea Respiratory: Respiratory: Denies cough and Denies dyspnea Gastrointestinal: Gastrointestinal: Reports as per HPI, Denies bloating, Denies heartburn, Denies nausea and Denies vomiting Neurologic: Denies confusion and Denies headache(s) Exam Const: General: comfortable and no acute distress; No confusion Orientation/consciousness: patient oriented x3 and No confusion GI: Inspection: non-distended and incision ( skin edges a little dusky in the umbilicus otherwise incision looks good.) GI Palp: Yes Soft to palpation, Yes Tenderness to palpation present (GI) ( Minimal appropriate tenderness), No Guarding due to palpation present (GI) and No Rebound tenderness present Auscultation: Hypoactive bowel sounds present Neuro: General: patient oriented x3, no focal motor deficits and No confusion Extrem: General: no calf tenderness and no edema Psych: Affect: normal affect Insight: Good insight present (Psych) Judgement: Good judgement present (Psych) Objective Data Vital Signs Vital Signs: Vital Signs - 24 hr 07/06/20 09:45 07/06/20 10:00 07/06/20 14:00 Temperature 36.8 C 36.5 C Pulse Rate 69 67 Respiratory Rate 14 18 Blood Pressure 101/63 114/73 Pulse Oximetry 91 93 92 07/06/20 22:00 Temperature 36.1 C L Pulse Rate 79 Respiratory Rate 16 Blood Pressure 106/69 Pulse Oximetry 94 Intake/Output Intake/Output: Intake & Output 07/04/20 07/05/20 07/06/20 07/07/20 23:59 23:59 23:59 23:59 Intake Total 1130 1120 Output Total 1200 Balance 1130 -80 Meds/Results Medications: Active Medications Generic Name Dose Route Start Last Admin Trade Name Freq PRN Reason Stop Dose Admin Hydrocodone Bitart/Acetaminophen 1 tab 07/05/20 11:39 Hydrocodone/Acetaminophen (*Crx) 5-325 Mg Tablet PO Q4H PRN Pain Rated 4-6 Hydrocodone Bitart/Acetaminophen 1 tab 07/05/20 11:39 07/05/20 17:40 Hydrocodone/Acetaminophen (*Crx) 7.5-325 Mg Tablet PO 1 tab Q4H PRN Administration Pain Rated 7-10 Albuterol 2 puff 07/05/20 18:32 Albuterol Sulfate (*Sp) Aerosol 1 Puff INHALATION Q4H PRN Wheezing Allopurinol 300 mg 07/06/20 09:00 Allopurinol 300 Mg Tablet PO DAILY [facility] Atorvastatin Calcium 40 mg 07/06/20 09:00 Atorvastatin 40 Mg Tablet PO DAILY [facility]AY[facility] Duloxetine HCl 60 mg 07/06/20 09:00 07/06/20 08:12 Duloxetine Hcl 60 Mg Capsule.Dr PO 60 mg DAILY [facility] Administration Enoxaparin Sodium 40 mg 07/06/20 09:00 07/06/20 08:13 Enoxaparin 40 Mg/0.4 Ml Syringe SUB-Q Not Given DAILY SHAYY Gabapentin 600 mg 07/05/20 21:00
[2020-07-07] MEDS: DULoxetine HCL 60 MG CAPSULE.DR PO (08:23)
[2020-07-07] MEDS: GABAPENTIN 300 MG CAPSULE 600 MG PO ×4 (08:24→20:02)
[2020-07-07] MEDS: THERAPEUTIC MULTIVITAMINS/MINERALS TAB (*BKC) 1 TABLET PO (08:25)
[2020-07-07] MEDS: MAGNESIUM OXIDE 400 MG TABLET PO (08:25)
[2020-07-07] MEDS: PANTOPRAZOLE 40 MG TABLET PO (08:26)
[2020-07-07] MEDS: SILVERGEL (ELTA) 45 ML 1 APPLIC TOPICAL (08:27)
[2020-07-07] MEDS: SPIRONOLACTONE 50 MG TABLET 100 MG PO (08:27)
[2020-07-07] MEDS: rifAXIMin 550 MG TABLET PO ×2 (08:27→20:02)
--- NOTE | 2020-07-07 13:26 | PM.IMPN ---
Progress Note: A&P Assessment and Plan (1) Umbilical hernia with obstruction, without gangrene: Code(s): K42.0 - Umbilical hernia with obstruction, without gangrene Status: Acute Assessment and Plan: Patient with chronic umbilical hernia that became incarcerated. Uneventful repair on 07/05/20. Patient appears to have tolerated the procedure well. She is having return of bowel function. Pain is well controlled. Tolerating current diet (2) Alcohol use disorder, severe, in sustained remission: Code(s): F10.21 - Alcohol dependence, in remission Status: Acute Assessment and Plan: Encouraged continued abstinence (3) Alcoholic cirrhosis: Qualifiers: Ascites presence: without ascites Qualified Code(s): K70.30 - Alcoholic cirrhosis of liver without ascites Code(s): K70.30 - Alcoholic cirrhosis of liver without ascites Status: Chronic Assessment and Plan: Stable. Continue rifaximin, spironolactone and lactulose as she tolerates. She has been refusing medications and compliance was stressed. (4) Spider bite: Qualifiers: Encounter type: subsequent encounter Injury intent: accidental or unintentional Qualified Code(s): T63.301D - Toxic effect of unspecified spider venom, accidental (unintentional), subsequent encounter Code(s): T63.301A - Toxic effect of unspecified spider venom, accidental (unintentional), initial encounter Status: Inactive Assessment and Plan: Looks more likely a venous stasis ulcer. Wound looks good. Continue wound care. Discussed with geotechnical engineering technician. (5) Hypothyroidism (acquired): Code(s): E03.9 - Hypothyroidism, unspecified Status: Acute Assessment and Plan: Continue levothyroxine (6) Peripheral neuropathy: Qualifiers: Peripheral neuropathy type: polyneuropathy, unspecified Qualified Code(s): G62.9 - Polyneuropathy, unspecified Code(s): G62.9 - Polyneuropathy, unspecified Status: Acute Assessment and Plan: Stable. Continue gabapentin and duloxetine (7) Hyperlipidemia: Qualifiers: Hyperlipidemia type: unspecified Qualified Code(s): E78.5 - Hyperlipidemia, unspecified Code(s): E78.5 - Hyperlipidemia, unspecified Status: Acute Assessment and Plan: LFTs slightly elevated but chronic felt related to her cirrhosis. Atorvastatin on hold. Will resume Subjective Date/time seen: 07/07/20 13:26 Interval history: Date of service 07/07 45yo female with chronic umbilical hernia. She has chronic liver disease due to alcohol consumption. Stopped drinking in early 2018 or late 2017. Slept well last night. Abd pain better. Toelrating oral intake. Requestiing dischare. No CP or SOB. +flatus Exam Narrative: Exam Narrative: AF 97.9 108/69 73 18 95% RA Gen - NARD lying almost flat in bed Chest - clear anteriorly and in the flanks. nml RR CV - RRR S1/S2 Abd -soft. Nondistended. positive sounds. Periumbilical incision is clean, dry and intact Ext - right leg dressing clean, dry and intact Neuro - nonfocal Skin - warm and dry Right LE dressing removed and patient with a half-dollar sized round lesion distal, lateral calf with minimal yellowish thick exudate Objective Data Vital Signs Vital Signs: Vital Signs - 24 hr 07/06/20 14:00 07/06/20 22:00 07/07/20 06:00 Temperature 97.7 F 97.0 F L 97.9 F Pulse Rate 67 79 73 Respiratory Rate 18 16 18 Blood Pressure 114/73 106/69 108/69 Pulse Oximetry 92 94 95 Intake/Output Intake/Output: Intake & Output 07/04/20 07/05/20 07/06/20 07/07/20 23:59 23:59 23:59 23:59 Intake Total 1130 1120 858 Output Total 1200 800 Balance 1130 -80 58 Meds/Results Medications: Active Medications Generic Name Dose Route Start Last Admin Trade Name Freq PRN Reason Stop Dose Admin Hydrocodone Bitart/Acetaminophen 1 tab 07/05/20 11:39 Hydr
[2020-07-07 14:00] VITALS: BP 98/64; PULSE 68; RESP 16; TEMP 36.6; O2SAT 94
--- NOTE | 2020-07-07 16:43 | PC.NURSE ---
This patient, Sabi Tafoya, was transferred to [facility] on 07/07/20 at 1644. Personal belongings sent with patient. Report given to Christian CHACON. Appropriate documentation sent with patient.
--- NOTE | 2020-07-07 16:45 | PC.NURSE ---
On 07/07/20, the RN, Isha Flowers, provided care and completed [facility] documentation on this patient. I have reviewed the RN's documentation and agree with the findings.
[2020-07-07 17:00] VITALS: BP 128/79; PULSE 75; RESP 20; TEMP 37.1; O2SAT 94
--- NOTE | 2020-07-07 17:09 | ADMGEN ---
This patient, Sabi Tafoya, was admitted to [facility] Room 219-02. Patient oriented to hospital policies and general routines including ID bracelet, bed and alarms, visiting hours, pain management, procedures, bathroom and other care routines, personal items, smoking policy, room service/diet, and visiting hours. Information on how to activate the Rapid Response Team has been discussed. Patient is encouraged to report perceived risks to care and to ask questions if they do not understand what they are told or what they should do.
[2020-07-07 20:07] VITALS: BP 100/62; PULSE 76; RESP 20; TEMP 36.9; O2SAT 92
--- NOTE | 2020-07-07 20:15 | PC.NURSE ---
Patient stated she did not want to take Lactulose this evening due to making her stomach cramp. She will try and take it in the morning.
[2020-07-08 05:16] LABS: Hematocrit 33.6 % (37.0-47.0); Hemoglobin 10.6 g/dL (12.0-15.0); Mean Corpuscular HGB Conc 31.5 g/dl (32-36); Mean Corpuscular Hemoglobin 26.9 pg (26-34); Mean Corpuscular Volume 85.3 fl (80-100); Mean Platelet Volume 11.4 fl (7.4-10.4); Platelet Count Result 185 k/mm3 (150-375); Red Blood Count 3.94 M/mm3 (4.2-5.4); Red Cell Distribution Width 20.1 % (11.5-14.5); White Blood Count 9.4 K/mm3 (4.5-10.0)
[2020-07-08 05:35] LABS: Alanine Aminotransferase 19 U/L (4-35); Albumin Level 2.9 g/dL (3.5-5.1); Alkaline Phosphatase 203 U/L (38-126); Anion Gap 2 mmol/L (8-16); Aspartate Amino Transferase 38 U/L (14-36); Bilirubin,Total 0.5 mg/dL (0.2-1.3); Blood Urea Nitrogen 17 mg/dL (7-17); Calcium 7.7 mg/dL (8.4-10.2); Carbon Dioxide 27 mmol/L (22-30); Chloride 108 mmol/L (98-107); Estimated CRCL calculation 60 ml/min; Estimated Glomerular Filt Rate 59; Glucose 59 mg/dL (65-105); Potassium 3.9 mmol/L (3.4-5.0); Sodium 137 mmol/L (137-145)
[2020-07-08 05:53] LABS: Glucose Point of Care 193 (65-105)
[2020-07-08 05:53] LABS: Glucose Point of Care 200 (65-105)
[2020-07-08] MEDS: LEVOTHYROXINE SODIUM 100 MCG, LEVOTHYROXINE SODIUM 75 MCG 175 MCG PO (06:06)
--- NOTE | 2020-07-08 06:32 | PC.NURSE ---
Attempted to call hospitalist for critical lab value at 0540, [phone], [phone]. Unable to reach, left message. Rechecked lab. Will inform day RN.
[2020-07-08 08:00] VITALS: PULSE 76; RESP 20; O2SAT 92
[2020-07-08] MEDS: SPIRONOLACTONE 50 MG TABLET 100 MG PO (08:10)
[2020-07-08] MEDS: THERAPEUTIC MULTIVITAMINS/MINERALS TAB (*BKC) 1 TABLET PO (08:10)
[2020-07-08] MEDS: MAGNESIUM OXIDE 400 MG TABLET PO (08:10)
[2020-07-08] MEDS: PANTOPRAZOLE 40 MG TABLET PO (08:10)
[2020-07-08] MEDS: rifAXIMin 550 MG TABLET PO (08:10)
[2020-07-08] MEDS: GABAPENTIN 300 MG CAPSULE 600 MG PO (08:10)
[2020-07-08] MEDS: DULoxetine HCL 60 MG CAPSULE.DR PO (08:10)
[2020-07-08] MEDS: SILVERGEL (ELTA) 45 ML 1 APPLIC TOPICAL (08:11)
[2020-07-08] MEDS: SERTRALINE HCL 50 MG TABLET PO (09:10)
[2020-07-08] MEDS: ATORVASTATIN 40 MG TABLET PO (09:11)
--- NOTE | 2020-07-08 10:16 | PM.DS ---
DS: Admitting Diagnosis Admitting Diagnosis Admitting Diagnosis: incarcerated umbilical hernia with small-bowel obstruction, no gangrene. DS: Discharge Diagnosis Discharge Diagnosis (1) Umbilical hernia with obstruction, without gangrene: Code(s): K42.0 - Umbilical hernia with obstruction, without gangrene Status: Acute Assessment and Plan: Patient underwent repair incarcerated umbilical hernia with small bowel obstruction on July 05, 2020. This was repaired open with 6.6 cm Parietex underlay mesh. (2) Alcohol use disorder, severe, in sustained remission: Code(s): F10.21 - Alcohol dependence, in remission Status: Chronic (3) Smoker: Code(s): F17.200 - Nicotine dependence, unspecified, uncomplicated Status: Chronic (4) Alcoholic cirrhosis: Qualifiers: Ascites presence: without ascites Qualified Code(s): K70.30 - Alcoholic cirrhosis of liver without ascites Code(s): K70.30 - Alcoholic cirrhosis of liver without ascites Status: Chronic (5) Portal hypertension: Code(s): K76.6 - Portal hypertension Status: Chronic Assessment and Plan: Engorged periumbilical varices noted at surgery. (6) Open ankle wound: Qualifiers: Encounter type: initial encounter Laterality: right Qualified Code(s): S91.001A - Unspecified open wound, right ankle, initial encounter Code(s): S91.009A - Unspecified open wound, unspecified ankle, initial encounter Status: Chronic Assessment and Plan: Patient will continue silver gel daily dressing changes as before. DS: Summary Hospital Course Reason for hospitalization: Incarcerated umbilical hernia with small-bowel obstruction Hospital Course: patient presented to the emergency room at night on 07/04/2020 with a painful bulge in the umbilicus. Exam as well as imaging showed an incarcerated umbilical hernia with small-bowel obstruction. The patient had not only had pain but vomiting with dry heaves. The hernia was unable to be reduced. She was taken emergently to surgery on 07/05/2020. She underwent repair of the umbilical hernia with underlay Parietex mesh. No strangulation or gangrenous bowel change was noted. No bowel resection was required. She was admitted after surgery. She remained NPO until postop day 2. She was gradually advanced on her diet from there. She was tolerating solid food by postop day 3. She was comfortable on oral analgesics. She was able to be discharged in good condition on July 08, 2020. The hospitalist service saw her in consultation the day of admission and manage her medical problems throughout her hospital stay. Patient has been abstinent from alcohol and has been advised to continue. She is a smoker and was advised to quit. She is to continue her right fax a min spironolactone and lactulose. She has an open wound on her ankle which she will continue silver gel dressing changes to this as she has been before. It was healing well. She was discharged in improved condition. Status at Discharge Functional status at discharge: independent ambulation Overall status at discharge: patient is back to baseline Time Spent with Patient Time attestation: Total time spent providing and/or coordinating discharge services: Time spent: Less than 30 minutes Exam Const: General: comfortable and no acute distress; No confusion Orientation/consciousness: patient oriented x3 and No confusion GI: Inspection: non-distended and incision ( Dry and healing well.) GI Palp: Yes Soft to palpation, Yes Tenderness to palpation present (GI) ( Minimal tenderness), No Guarding due to palpation present (GI) and No Rebound tenderness present Auscultation: normal bowel sounds Neuro: General: patient oriented x3, no focal motor deficits and No confusion Extrem: General: no calf tenderness and no edema Psych: Affect: normal affect Insight: Good insight present (Psych) [place]
== END 2020-07-08 12:40 | disposition home or self-care (01) | DRG 354 ==
LOC: ANHED 05:01 → ANHSURGERY 08:03 → ANH2MED 11:41 → ANHTRC 07-07 16:57
PROVIDERS: Admitting Provider Surgery; Emergency Provider General Practice; PCP Family Medicine; Visit Provider Internal Medicine
PROC: 0WUF0JZ Supplement Abdominal Wall with Synthetic Substitute, Open Approach (ICD-10-PCS; principal; 2020-07-05 09:00)
DX: K42.0 Umbilical hernia with obstruction, without gangrene (principal); K76.6 Portal hypertension; L97.319 Non-pressure chronic ulcer of right ankle with unspecified severity; I87.2 Venous insufficiency (chronic) (peripheral); K43.6 Other and unspecified ventral hernia with obstruction, without gangrene; K70.30 Alcoholic cirrhosis of liver without ascites; F10.21 Alcohol dependence, in remission; F17.200 Nicotine dependence, unspecified, uncomplicated; K57.30 Diverticulosis of large intestine without perforation or abscess without bleeding; S91.001A Unspecified open wound, right ankle, initial encounter; E78.5 Hyperlipidemia, unspecified; E03.9 Hypothyroidism, unspecified; T63.301D Toxic effect of unspecified spider venom, accidental (unintentional), subsequent encounter; G62.9 Polyneuropathy, unspecified
CPT/HCPCS: 36415; 74177; 80048; 80053; 80076; 81001; 81025; 82140; 83690; 85025; 85027; 85610; 85730; 88300; 88302; 96361; 96365; 96375; 99285; A9270; C1781; C9113; C9290; J0690; J1100; J1170; J1650; J2250; J2370; J2405; J2704; J2710; J3010; J3480; J7030; J7120; Q9967

== ENCOUNTER 2020-08-11 12:15 | Outpatient (RCR) | payer MEDICARE, MEDICAID, SELFPAY ==
--- NOTE | 2020-08-10 12:10 | PCWOUND ---
WOCN NOTE patient called to inform she was running late due to a flat tire. Rescheduled appointment for Monday08/11/20 at 12:00pm
[2020-08-11 15:52] VITALS: BMI 22.7
--- NOTE | 2020-08-27 09:57 | PCWOUND ---
WOCN NOTE patient called office to see what time her appointment was today as she couldn't remember if it was 1030 or 1330 due to her having troubles with her phone. Informed patient that her appointment was at 1030 with her surgeon. Patient informed that there was no way she could make that appointment time. Cancelled appointment and informed that we would have to contact her at a later time as appointment needs to be scheduled with Dr ash. Patient verbalized understanding. Gave wound center a new phone number to contact.
--- NOTE | 2020-09-10 10:15 | PCWOUND ---
WOCN NOTE patient did not show up for scheduled appointment today 09/10/[address] Navarro. Patient did not call to cancel. Spoke with Isis at Dr. Navarro's office to notify.
--- NOTE | 2020-09-14 12:05 | PCWOUND ---
WOCN NOTE patient did not show up for appointment today. No call was made to cancel. This is the 3rd no call/no show. Spoke with Aida DHILLON for Dr. Navarro and notified.
== END 2020-09-23 14:43 | disposition home or self-care (01) ==
LOC: ANHWOC 12:15
PROVIDERS: PCP Family Medicine; Visit Provider Surgery
DX: T81.49XA Infection following a procedure, other surgical site, initial encounter (principal)
CPT/HCPCS: 99212; A9270; G0463